=== PATIENT | female | born 1945 | race Caucasian/White ===

== ENCOUNTER 2017-11-02 02:44 | Outpatient (CLI) | payer MEDICARE, BC, SELFPAY ==
--- NOTE | 2017-11-02 14:37 | DI.REPORT_ITS ---
SYMPTOMS/DIAGNOSIS: COUGH, R07.9 CHEST X-RAY, PA AND LATERAL: Comparison is 03/23/17. The heart is normal in size. The lungs are clear. The mediastinal structures and pleura appear intact. IMPRESSION: Normal chest.
== END 2017-11-02 02:45 ==
PROVIDERS: PCP Family Medicine
DX: R07.9 Chest pain, unspecified (principal); R05 Cough
CPT/HCPCS: 71046

== ENCOUNTER 2017-11-12 08:16 | Day surgery (SDC) | payer MEDICARE, BC, SELFPAY ==
--- NOTE | 2017-11-11 13:47 | POEE_ITS ---
History of Present Illness Chief Complaint: Progressive decreased vision, left eye Narrative: NOTE: The Chief Complaint, HPI, Past Medical History, Past Surgical History, Family History, Social History, Medications, and complete Ophthalmic Exam with detailed Assessment and Plan have already been documented in the patient's outpatient ophthalmic record and/or in the Primary Care Provider's pre-op history and physical, and are not covered again in detail here. PFSH Family History Mother No problems noted. Father Cancer of heart Essential hypertension Heart disease Hyperlipidemia Neoplasm Sister Depression Hyperlipidemia Grandfather Heart disease Myocardial infarction Grandfather Heart disease Myocardial infarction Grandmother No problems noted. Grandmother Diabetes Essential hypertension Heart disease Hyperlipidemia Daughter Maria Luz-Danlos disease GRANDDAUGHTER (SON'S CHILD) Depression Son No problems noted. Daughter Substance abuse Depression Mental disorder GRANDDAUGHTER (DAUGHTERS CHILD Maria Luz-Danlos disease Social History Smoking/Tobacco Use Status: Never Surgical History BLADDER REPAIR Cervical Procedure Ligation of fallopian tube Tonsillectomy and adenoidectomy Meds Home Medications Medication Instructions Recorded Confirmed Type ibuprofen [Motrin Ib] 200 mg PO PRN 08/01/12 10/22/17 History olopatadine [Patanol 0.1%] 1 drp OPHTHALMIC BID PRN drp 08/01/12 10/22/17 History acetaminophen [Tylenol Extra 1,000 mg PO PRN PRN 07/21/14 10/22/17 History Strength] hydrocortisone 1 gm TOPICAL BID #1 tube 06/16/15 10/18/17 Clinic Magnesium Taurate 125 mg PO BID 06/29/16 10/22/17 History cyanocobalamin (vitamin B-12) 2,500 mcg PO BID tab.chew 06/29/16 10/22/17 History omega 9-hfq-aab-fish oil [Fish Oil 1,000 mg PO BID 06/29/16 10/22/17 History 1,000 Mg Softgel] vit B,F-WA-qqtk-copper oxide-E 1 ea PO DAILY 06/29/16 10/22/17 History [Stress B-Complex Tablet] Cardio Vh 180 mg PO DAILY 07/17/17 10/22/17 History coenzyme Q10 [Coq-10] 100 mg PO DAILY 07/17/17 10/22/17 History nystatin 4 gm TOPICAL BID #60 gm 07/17/17 10/22/17 Clinic sertraline 100 mg PO DAILY #90 tab-cap 09/17/17 10/22/17 Clinic inositol niacinate (bulk) 1,000 gm MISCELLANEOUS DAILY 10/22/17 10/22/17 History [Inositol Hexanicotinate] albuterol sulfate 2.5 mg INHALATION Q4H PRN #1 box 11/01/17 Clinic doxycycline hyclate 100 mg PO BID #20 tab-cap 11/01/17 Clinic Allergies Allergy/AdvReac Type Severity Reaction Status Date / Time Sulfa (Sulfonamide Allergy Intermediate HIVES Unverified 11/01/17 09:34 Antibiotics) aluminum Allergy Mild Unverified 11/01/17 09:34 ZINC GLUCONATE Allergy Mild ITCHING Uncoded 10/22/17 07:07 Exam OCULAR EXAM:: Visual acuity at distance: [] Pupils: [] IOP: [] Extraocular Motility: [] Pertinent Slit Lamp Findings: [] Dilated Funduscopic Examination: [] BRIGHTNESS ACUITY TESTING (BAT):: Off [] Low:[] Medium:[] High:[] Note: NOTE:: The details of the planned surgery, including the risks, indications, limitations,expectations,outcome and possible complications were explained to the patient. The patient understands the complications including, but not limited to: infection, hemorrhage, posterior dislocation of the lens or nuclear fragments which may require the intervention of a vitreoretinal surgeon, possible loss of the eye, or from anesthetic complications. The patient has been made aware of the option of not having surgery, that vision following surgery may not be equal to that prior to surgery, and that the planned surgery may not achieve the intended results. Following this discussion, which the patient appeared to understand, the patient wishes to proceed with cataract surgery with lens implantation of the affected eye to improve and maximize vision.
--- NOTE | 2017-11-11 14:13 | W.PIPPEYE ---
History of Present Illness Chief Complaint: Progressive decreased vision, left eye Narrative: The patient is a 71-year-old lady with history of narrow anterior chamber angles who has previously undergone laser iridotomy in 2017. She developed significant bilateral nuclear cataracts with complaints of diminished visual acuity in both eyes at both distance and near. She was significantly symptomatic that she underwent cataract surgery in the right eye on 10/22/2017. Postoperatively she has regained best corrected vision of 20/25 in the right eye. She now presents for cataract surgery in the left eye. NOTE: The Chief Complaint, HPI, Past Medical History, Past Surgical History, Family History, Social History, Medications, and complete Ophthalmic Exam with detailed Assessment and Plan have already been documented in the patient's outpatient ophthalmic record and/or in the Primary Care Provider's pre-op history and physical, and are not covered again in detail here. PFSH Family History Mother No problems noted. Father Cancer of heart Essential hypertension Heart disease Hyperlipidemia Neoplasm Sister Depression Hyperlipidemia Grandfather Heart disease Myocardial infarction Grandfather Heart disease Myocardial infarction Grandmother No problems noted. Grandmother Diabetes Essential hypertension Heart disease Hyperlipidemia Daughter Maria Luz-Danlos disease GRANDDAUGHTER (SON'S CHILD) Depression Son No problems noted. Daughter Substance abuse Depression Mental disorder GRANDDAUGHTER (DAUGHTERS CHILD Maria Luz-Danlos disease Social History Smoking/Tobacco Use Status: Never Surgical History S/P cataract surgery (Acute 10/29/17) BLADDER REPAIR Cervical Procedure Ligation of fallopian tube Tonsillectomy and adenoidectomy Meds Home Medications Medication Instructions Recorded Confirmed Type ibuprofen [Motrin Ib] 200 mg PO PRN 08/01/12 10/22/17 History olopatadine [Patanol 0.1%] 1 drp OPHTHALMIC BID PRN drp 08/01/12 10/22/17 History acetaminophen [Tylenol Extra 1,000 mg PO PRN PRN 07/21/14 10/22/17 History Strength] hydrocortisone 1 gm TOPICAL BID #1 tube 06/16/15 10/18/17 Clinic Magnesium Taurate 125 mg PO BID 06/29/16 10/22/17 History cyanocobalamin (vitamin B-12) 2,500 mcg PO BID tab.chew 06/29/16 10/22/17 History omega 9-gkg-bll-fish oil [Fish Oil 1,000 mg PO BID 06/29/16 10/22/17 History 1,000 Mg Softgel] vit B,D-PD-wsyb-copper oxide-E 1 ea PO DAILY 06/29/16 10/22/17 History [Stress B-Complex Tablet] Cardio Vh 180 mg PO DAILY 07/17/17 10/22/17 History coenzyme Q10 [Coq-10] 100 mg PO DAILY 07/17/17 10/22/17 History nystatin 4 gm TOPICAL BID #60 gm 07/17/17 10/22/17 Clinic sertraline 100 mg PO DAILY #90 tab-cap 09/17/17 10/22/17 Clinic inositol niacinate (bulk) 1,000 gm MISCELLANEOUS DAILY 10/22/17 10/22/17 History [Inositol Hexanicotinate] albuterol sulfate 2.5 mg INHALATION Q4H PRN #1 box 11/01/17 Clinic doxycycline hyclate 100 mg PO BID #20 tab-cap 11/01/17 Clinic Allergies Allergy/AdvReac Type Severity Reaction Status Date / Time Sulfa (Sulfonamide Allergy Intermediate HIVES Unverified 11/01/17 09:34 Antibiotics) aluminum Allergy Mild Unverified 11/01/17 09:34 ZINC GLUCONATE Allergy Mild ITCHING Uncoded 10/22/17 07:07 Exam OCULAR EXAM:: Visual acuity at distance: Right eye corrected visual acuity is 20/25. Best corrected vision in the left eye is 20/30. Pupils: Pupils equal, round, and reactive without afferent pupillary defect IOP: 18 OD 16 OS Extraocular Motility: Normal Pertinent Slit Lamp Findings: Significant for a patent peripheral iridotomy OU. Well-positioned PCIOL OD with clear posterior capsule. The left eye shows an intermediate depth anterior chamber with narrow angles. A 2+ brunescent nuclear cataract is present. Pupils dilate to 7 mm. Dilated Funduscopic Examination: Disc cupping is 0.2 OU. The optic nerves have good perfusion and normal color. The retinal vasculature is normal without significant tortuosity or abnormality. The maculas are normal in appearance with normal contour and foveal reflex appropriate for age. The peripheral retina and vitreous are normal. BRIGHTNESS ACUITY TESTING (BAT):: Off left eye 20/30 Low: 20/40 Medium: 20/50 High: 20/60 Assessment and Plan (1) Nuclear sclerotic cataract of left eye: Current visit: No Status: Chronic Assessment: Visually significant cataract, left eye. 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 The patient understands the complications including, but not limited to: infection, hemorrhage, posterior dislocation of the lens or nuclear fragments which may require the intervention of a vitreoretinal surgeon, possible loss of the eye, or from anesthetic complications. The patient has been made aware of the option of not having surgery, that vision following surgery may not be equal to that prior to surgery, and that the planned surgery may not achieve the intended results. Following this discussion, which the patient appeared to understand, the patient wishes to proceed with cataract surgery with lens implantation of the affected eye to improve and maximize vision.
--- NOTE | 2017-11-11 14:20 | POEE_ITS ---
History of Present Illness Chief Complaint: Progressive decreased vision, left eye Narrative: The patient is a 71-year-old lady with history of narrow anterior chamber angles who has previously undergone laser iridotomy in 2017. She developed significant bilateral nuclear cataracts with complaints of diminished visual acuity in both eyes at both distance and near. She was significantly symptomatic that she underwent cataract surgery in the right eye on 10/22/2017. Postoperatively she has regained best corrected vision of 20/25 in the right eye. She now presents for cataract surgery in the left eye. NOTE: The Chief Complaint, HPI, Past Medical History, Past Surgical History, Family History, Social History, Medications, and complete Ophthalmic Exam with detailed Assessment and Plan have already been documented in the patient's outpatient ophthalmic record and/or in the Primary Care Provider's pre-op history and physical, and are not covered again in detail here. PFSH Family History Mother No problems noted. Father Cancer of heart Essential hypertension Heart disease Hyperlipidemia Neoplasm Sister Depression Hyperlipidemia Grandfather Heart disease Myocardial infarction Grandfather Heart disease Myocardial infarction Grandmother No problems noted. Grandmother Diabetes Essential hypertension Heart disease Hyperlipidemia Daughter Maria Luz-Danlos disease GRANDDAUGHTER (SON'S CHILD) Depression Son No problems noted. Daughter Substance abuse Depression Mental disorder GRANDDAUGHTER (DAUGHTERS CHILD Maria Luz-Danlos disease Social History Smoking/Tobacco Use Status: Never Surgical History S/P cataract surgery (Acute 10/29/17) BLADDER REPAIR Cervical Procedure Ligation of fallopian tube Tonsillectomy and adenoidectomy Meds Home Medications Medication Instructions Recorded Confirmed Type ibuprofen [Motrin Ib] 200 mg PO PRN 08/01/12 10/22/17 History olopatadine [Patanol 0.1%] 1 drp OPHTHALMIC BID PRN drp 08/01/12 10/22/17 History acetaminophen [Tylenol Extra 1,000 mg PO PRN PRN 07/21/14 10/22/17 History Strength] hydrocortisone 1 gm TOPICAL BID #1 tube 06/16/15 10/18/17 Clinic Magnesium Taurate 125 mg PO BID 06/29/16 10/22/17 History cyanocobalamin (vitamin B-12) 2,500 mcg PO BID tab.chew 06/29/16 10/22/17 History omega 1-jsn-wtu-fish oil [Fish Oil 1,000 mg PO BID 06/29/16 10/22/17 History 1,000 Mg Softgel] vit B,W-OU-bhzx-copper oxide-E 1 ea PO DAILY 06/29/16 10/22/17 History [Stress B-Complex Tablet] Cardio Vh 180 mg PO DAILY 07/17/17 10/22/17 History coenzyme Q10 [Coq-10] 100 mg PO DAILY 07/17/17 10/22/17 History nystatin 4 gm TOPICAL BID #60 gm 07/17/17 10/22/17 Clinic sertraline 100 mg PO DAILY #90 tab-cap 09/17/17 10/22/17 Clinic inositol niacinate (bulk) 1,000 gm MISCELLANEOUS DAILY 10/22/17 10/22/17 History [Inositol Hexanicotinate] albuterol sulfate 2.5 mg INHALATION Q4H PRN #1 box 11/01/17 Clinic doxycycline hyclate 100 mg PO BID #20 tab-cap 11/01/17 Clinic Allergies Allergy/AdvReac Type Severity Reaction Status Date / Time Sulfa (Sulfonamide Allergy Intermediate HIVES Unverified 11/01/17 09:34 Antibiotics) aluminum Allergy Mild Unverified 11/01/17 09:34 ZINC GLUCONATE Allergy Mild ITCHING Uncoded 10/22/17 07:07 Exam OCULAR EXAM:: Visual acuity at distance: Right eye corrected visual acuity is 20 /25. Best corrected vision in the left eye is 20/30. Pupils: Pupils equal, round, and reactive without afferent pupillary defect IOP: 18 OD 16 OS Extraocular Motility: Normal Pertinent Slit Lamp Findings: Significant for a patent peripheral iridotomy OU. Well-positioned PCIOL OD with clear posterior capsule. The left eye shows an intermediate depth anterior chamber with narrow angles. A 2+ brunescent nuclear cataract is present. Pupils dilate to 7 mm. Dilated Funduscopic Examination: Disc cupping is 0.2 OU. The optic nerves have good perfusion and normal color. The retinal vasculature is normal without significant tortuosity or abnormality. The maculas are normal in appearance with normal contour and foveal reflex appropriate for age. The peripheral retina and vitreous are normal. BRIGHTNESS ACUITY TESTING (BAT):: Off left eye 20/30 Low: 20/40 Medium: 20/50 High: 20/60 Assessment and Plan (1) Nuclear sclerotic cataract of left eye: Current visit: No Status: Chronic Assessment: Visually significant cataract, left eye. Plan: Cataract extraction with intraocular lens implantation, left eye (2) Anatomical narrow angle, left eye: Current visit: No Status: Chronic Status post laser peripheral iridotomy Note: NOTE:: The details of the planned surgery, including the risks, indications, limitations,expectations,outcome and possible complications were explained to the patient. The patient understands the complications including, but not limited to: infection, hemorrhage, posterior dislocation of the lens or nuclear fragments which may require the intervention of a vitreoretinal surgeon, possible loss of the eye, or from anesthetic complications. The patient has been made aware of the option of not having surgery, that vision following surgery may not be equal to that prior to surgery, and that the planned surgery may not achieve the intended results. Following this discussion, which the patient appeared to understand, the patient wishes to proceed with cataract surgery with lens implantation of the affected eye to improve and maximize vision.
[2017-11-12 08:53] VITALS: BP 144/64; PULSE 56; RESP 16; TEMP 36.7; O2SAT 98
[2017-11-12] MEDS: Balanced Salt Soln.-PLUS 500 ML BAG (10:38)
[2017-11-12] MEDS: Lidocaine 1% Pres-Free 5 ML VIAL (10:41)
[2017-11-12] MEDS: Lidocaine 2% Jelly 6 ML SYR (10:42)
[2017-11-12] MEDS: Duovisc Viscoelastic System EACH 1 EACH (10:43)
[2017-11-12] MEDS: Povidone-Iodine Ophth 30 ML BTL (10:57)
--- NOTE | 2017-11-12 11:08 | W.PM.DSUDISC ---
Discharge Plan Discharge Details Attending Provider: Ronak Lara Primary Care Provider: Genaro Leon Home Meds and New Rx's Prescriptions: No Action olopatadine [Patanol] 5 ML drops 1 drp Ophthalmic BID PRNRF: 0 ibuprofen [Motrin IB] 200 MG tablet 200 mg PO PRN RF: 0 hydrocortisone 30 GM cream 1 gm Topical BID Qty: 1 RF: 0 omega 8-lov-uew-fish oil [Fish Oil] 1,000 MG capsule 1,000 mg PO BID RF: 0 vit B,H-LH-iyoh-copper oxide-E [Stress B-Complex] 1 EACH tablet 1 ea PO DAILY RF: 0 cyanocobalamin (vitamin B-12) 2,500 MCG tablet,chewable 2,500 mcg PO BID RF: 0 magnesium taurate 125 mg PO BID RF: 0 coenzyme Q10 [CoQ-10] 100 MG capsule 100 mg PO DAILY RF: 0 Cardio VH 180 mg PO DAILY RF: 0 nystatin 60 GM powder 4 gm Topical BID Qty: 60 RF: 11 sertraline 100 MG tablet 100 mg PO DAILY Qty: 90 RF: 3 doxycycline hyclate 100 MG tablet 100 mg PO BID Qty: 20 RF: 0 albuterol sulfate 2.5 MG/3 ML solution for nebulization 2.5 mg Inhalation Q4H PRN Qty: 1 RF: 0 acetaminophen [Tylenol Extra Strength] 500 MG tablet 1,000 mg PO PRN PRNRF: 0 inositol niacinate (bulk) [Inositol Hexanicotinate] 1,000 GM powder 1,000 gm Miscellaneous DAILY RF: 0 Discharge Instructions Stand Alone Forms: Post-op Topical Cataract, [place] (DSU) DS: Diagnosis Discharge Diagnosis (1) Nuclear sclerotic cataract of left eye: Status: Resolved (2) Anatomical narrow angle, left eye: Status: Resolved
--- NOTE | 2017-11-12 11:09 | W.PM.OP ---
Date of service: 11/12/17 Time of Service: 11:10 Operative Note Date of procedure: 11/12/17 Pre-op diagnosis: Cataract, left eye Post-op diagnosis: same Procedure: Cataract extraction using phacoemulsification with intraocular lens implant, left eye Surgeon: Ronak Lara Anesthesia: MAC and local (sub-tenon's anesthetic infiltration) Pathology: none sent Complications: None Patient was transported to: same day Patient's condition: stable Implants: Miguel and Miguel / [employer] Tecnis [id number] Indications: Painless progressive vision loss due to cataract, left eye Procedure Description: CATARACT SURGERY OPERATIVE REPORT PREOPERATIVE DIAGNOSIS: 1. Nuclear cataract, left eye, symptomatic 2. Status post peripheral iridotomy for narrow anterior chamber angles, both eyes 3. Status post cataract extraction with lens implantation, right eye POSTOPERATIVE DIAGNOSIS: Same OPERATION: Cataract extraction using phacoemulsification with posterior chamber intraocular lens implant, left eye. IOL: IOL Ekg Tech/Model: Miguel & Miguel / YULIYA Tecnis [id number] IOL Power: +27.0 diopters IOL Serial Number: [id number] Optic Diameter: 6.0 mm Haptic/Overall Diameter: 13.0 mm PHACO INFO: Gus [employer]ion Vision System with OZil and Active [employer]uidics Cumulative Dispersed Energy (CDE): 6.73 seconds SURGEON: Ronak Lara MD, [facility] ANESTHESIA: Monitored Anesthesia Care (MAC), with local sub-tenon's anesthetic infiltration COMPLICATIONS: None SPECIMENS: None INDICATIONS FOR PROCEDURE: Patient is a 71-year-old lady with history of shallow anterior chambers and narrow anterior chamber angles was undergone previous laser peripheral iridotomy. She is oriented on cataract surgery in her right eye to remove a visually significant cataract. She now presents for cataract surgery in the left eye. PROCEDURE: The correct surgical eye was identified and marked as the left eye and the pupil was dilated in the preoperative area using mydriatics, cycloplegics, and NSAIDS (except in aspirin allergic patients). The dilated pupil size was 7.0 mm. Oral sedation was administered in the form of an Imprimis MKO Melt (midazolam 3mg/ketamine 25mg/ondansetron 2mg). The patient was brought to the operating room where cardiopulmonary monitoring was instituted and surgical time-out was performed, confirming the correct operative eye and IOL power. Topical anesthesia was administered and ophthalmic povidone-iodine 5% was instilled into the conjunctival fornices. Lidocaine gel was applied to the cornea and the shreyas-ocular area was prepped with Betadine 10% solution and draped in the usual sterile fashion for intraocular surgery. Steri-strips were used to cover the lashes and lid margins and an adhesive eye drape was placed. Care was taken to isolate the lashes and lid margins under the Steri-strips and adhesive eye drape. A lid speculum was placed between the lids of the operative eye and the Latoya-Junior operating microscope was maneuvered into position. Rick scissors were then used to make a conjunctival buttonhole approximately 6mm posterior to the limbus in the inferonasal quadrant. Blunt dissection was carried out to expose bare sclera, and a blunt-tipped sub-tenon?s anesthesia cannula was introduced and passed posteriorly along the globe where non-preserved plain lidocaine was injected into posterior sub-Tenon?s space. A sideport knife was used to make a paracentesis port at the 12:00 postion and the anterior chamber was filled with Viscoat to protect the corneal endothelium. A 2.4mm keratome knife was used to create a half-thickness groove at the limbus and then to construct a three-plane near-clear corneal tunnel extending 2.0mm into clear cornea at the 3:00 position. A flap was raised on the anterior capsule and capsulorhexis forceps were used to complete a continuous curvilinear capsulorhexis of 5.0. Balanced salt solution was then used to perform cortical cleaving hydrodissection and nuclear hydrodelineation until the lens could be freely rotated within the capsular bag. The lens nucleus was then disassembled and removed within the capsular bag and iris plane using phacoemulsification. Residual cortical material was removed using the 45-degree angled silicone I/A tip with 0.3mm port. The posterior capsule was carefully polished to remove as much residual lens epithelial cells as safely possible. The capsular bag was then inflated and the anterior chamber deepened with Provisc viscoelastic. The lens implant described above was inserted into the capsular bag using the YULIYA [place] Injector. A Kuglen hook was used to dial the IOL into position. Residual viscoelastic was then removed first from posterior to the IOL, then from the anterior chamber using the I/A handpiece. The lens implant was noted to center nicely within the capsular bag. The incisions were stromally hydrated, and the anterior chamber was reformed using BSS. Then 0.4cc of moxifloxacin 1.5mg/ml were injected into the capsular bag and anterior chamber. The incisions were checked with a Weck spear and found to be secure. Several drops of ophthalmic povidone-iodine 5% were then applied to the eye followed by two drops of Imprimis combination moxifloxacin/dexamethasone solution. The drapes were removed and a clear plastic protective eye shield was placed over the eye. The patient was then returned to [facility] Day Surgery in stable condition.
--- NOTE | 2017-11-12 11:12 | ROE_ITS ---
Date of service: 11/12/17 Time of Service: 11:10 Operative Note Date of procedure: 11/12/17 Pre-op diagnosis: Cataract, left eye Post-op diagnosis: same Procedure: Cataract extraction using phacoemulsification with intraocular lens implant, left eye Surgeon: Ronak Lara Anesthesia: MAC and local (sub-tenon's anesthetic infiltration) Pathology: none sent Complications: None Patient was transported to: same day Patient's condition: stable Implants: Miguel and Miguel / [employer] Tecnis [id number] Indications: Painless progressive vision loss due to cataract, left eye Procedure Description: CATARACT SURGERY OPERATIVE REPORT PREOPERATIVE DIAGNOSIS: 1. Nuclear cataract, left eye, symptomatic 2. Status post peripheral iridotomy for narrow anterior chamber angles, both eyes 3. Status post cataract extraction with lens implantation, right eye POSTOPERATIVE DIAGNOSIS: Same OPERATION: Cataract extraction using phacoemulsification with posterior chamber intraocular lens implant, left eye. IOL: IOL Hand Former/Model: Miguel & Miguel / YULIYA Tecnis [id number] IOL Power: +27.0 diopters IOL Serial Number: [id number] Optic Diameter: 6.0 mm Haptic/Overall Diameter: 13.0 mm PHACO INFO: Gus Centurion Vision System with OZil and Active Fluidics Cumulative Dispersed Energy (CDE): 6.73 seconds SURGEON: Ronak Lara MD, TEMO ANESTHESIA: Monitored Anesthesia Care (MAC), with local sub-tenon's anesthetic infiltration COMPLICATIONS: None SPECIMENS: None INDICATIONS FOR PROCEDURE: Patient is a 71-year-old lady with history of shallow anterior chambers and narrow anterior chamber angles was undergone previous laser peripheral iridotomy. She is oriented on cataract surgery in her right eye to remove a visually significant cataract. She now presents for cataract surgery in the left eye. PROCEDURE: The correct surgical eye was identified and marked as the left eye and the pupil was dilated in the preoperative area using mydriatics, cycloplegics, and NSAIDS (except in aspirin allergic patients). The dilated pupil size was 7.0 mm. Oral sedation was administered in the form of an Imprimis MKO Melt (midazolam 3mg/ketamine 25mg/ondansetron 2mg). The patient was brought to the operating room where cardiopulmonary monitoring was instituted and surgical time-out was performed, confirming the correct operative eye and IOL power. Topical anesthesia was administered and ophthalmic povidone-iodine 5% was instilled into the conjunctival fornices. Lidocaine gel was applied to the cornea and the shreyas-ocular area was prepped with Betadine 10% solution and draped in the usual sterile fashion for intraocular surgery. Steri-strips were used to cover the lashes and lid margins and an adhesive eye drape was placed. Care was taken to isolate the lashes and lid margins under the Steri-strips and adhesive eye drape. A lid speculum was placed between the lids of the operative eye and the Latoya-Junior operating microscope was maneuvered into position. Rick scissors were then used to make a conjunctival buttonhole approximately 6mm posterior to the limbus in the inferonasal quadrant. Blunt dissection was carried out to expose bare sclera, and a blunt-tipped sub-tenon? s anesthesia cannula was introduced and passed posteriorly along the globe where non-preserved plain lidocaine was injected into posterior sub-Tenon?s space. A sideport knife was used to make a paracentesis port at the 12:00 postion and the anterior chamber was filled with Viscoat to protect the corneal endothelium. A 2.4mm keratome knife was used to create a half-thickness groove at the limbus and then to construct a three-plane near-clear corneal tunnel extending 2.0mm into clear cornea at the 3:00 position. A flap was raised on the anterior capsule and capsulorhexis forceps were used to complete a continuous curvilinear capsulorhexis of 5.0. Balanced salt solution was then used to perform cortical cleaving hydrodissection and nuclear hydrodelineation until the lens could be freely rotated within the capsular bag. The lens nucleus was then disassembled and removed within the capsular bag and iris plane using phacoemulsification. Residual cortical material was removed using the 45-degree angled silicone I/A tip with 0.3mm port. The posterior capsule was carefully polished to remove as much residual lens epithelial cells as safely possible. The capsular bag was then inflated and the anterior chamber deepened with Provisc viscoelastic. The lens implant described above was inserted into the capsular bag using the YULIYA Waller Injector. A Kuglen hook was used to dial the IOL into position. Residual viscoelastic was then removed first from posterior to the IOL, then from the anterior chamber using the I/A handpiece. The lens implant was noted to center nicely within the capsular bag. The incisions were stromally hydrated , and the anterior chamber was reformed using BSS. Then 0.4cc of moxifloxacin 1.5mg/ml were injected into the capsular bag and anterior chamber. The incisions were checked with a Weck spear and found to be secure. Several drops of ophthalmic povidone-iodine 5% were then applied to the eye followed by two drops of Imprimis combination moxifloxacin/dexamethasone solution. The drapes were removed and a clear plastic protective eye shield was placed over the eye. The patient was then returned to [facility] in stable condition.
[2017-11-12 11:22] VITALS: BP 130/69; PULSE 51; RESP 16; TEMP 36.8; O2SAT 97
== END 2017-11-12 11:38 | disposition home or self-care (01) ==
LOC: SUR 08:16
PROVIDERS: PCP Family Medicine; Visit Provider Ophthalmology
PROC: (CPT 66984; principal; 2017-11-12 11:30)
DX: H25.12 Age-related nuclear cataract, left eye (principal); Z98.890 Other specified postprocedural states; Z96.1 Presence of intraocular lens; Z98.41 Cataract extraction status, right eye
CPT/HCPCS: 66984; V2632

== ENCOUNTER 2018-01-07 08:52 | Outpatient (CLI) | payer MEDICARE, BC, SELFPAY ==
[2018-01-07 10:22] LABS: Iron 146 ug/dL (50-175)
[2018-01-07 10:34] LABS: ALT 24 U/L (12-78); AST 23 U/L (15-37); Albumin 3.7 g/dL (3.4-5.0); Alkaline Phosphatase 95 U/L (46-116); Anion Gap 7.8 mmol/L (3-11); BUN 21 mg/dL (7-18); Bilirubin, Total 0.7 mg/dL (0.2-1.0); CO2 28.2 mmol/L (21.0-32.0); Calcium 9.1 mg/dL (8.5-10.1); Chloride 106 mmol/L (98-107); Cholesterol 222 mg/dL (50-200); Ferritin 60 ng/mL (8-388); Glucose 94 mg/dL (70-100); HDL Cholesterol 45 mg/dL (40-60); LDL CHOLESTEROL 157 mg/dL (<100); Potassium 4.4 mmol/L (3.5-5.1); Sodium 142 mmol/L (136-145); Total Protein 6.7 g/dL (6.4-8.2); Triglyceride 148 mg/dL (30-150)
== END 2018-01-07 09:12 ==
PROVIDERS: PCP Family Medicine
DX: I10 Essential (primary) hypertension (principal); D64.9 Anemia, unspecified; R63.8 Other symptoms and signs concerning food and fluid intake; K21.9 Gastro-esophageal reflux disease without esophagitis; F32.9 Major depressive disorder, single episode, unspecified; E83.119 Hemochromatosis, unspecified
CPT/HCPCS: 36415; 80053; 80061; 83721; 82728; 83540

== ENCOUNTER 2018-05-31 07:00 | Emergency (ER) | payer MEDICARE, BC, SELFPAY ==
[2018-05-31 07:23] VITALS: BP 163/84; PULSE 64; RESP 16; TEMP 36.3; O2SAT 97
--- NOTE | 2018-05-31 09:41 | W.ED.GENAD ---
Discharge Plan Disposition Patient Disposition: HOME Condition: Stable Discharge Details Chief Complaint: RespSymp Clinical Impression: Chronic cough, Sore throat, Viral syndrome Primary Care Provider: Angy Jacob ED Provider: Renetta Yan Home Meds and New Rx's Prescriptions: Continued Osteoblend See Patient Comments .ROUTE .COMPLEX RF: 0 vitamin B complex [Super B-50 Complex] capsule 1 cap PO DAILY RF: 0 cholecalciferol (vitamin D3) 2,000 unit capsule 2,000 unit PO DAILY Qty: 90 RF: 4 olopatadine [Patanol] 5 ML drops 1 drp Ophthalmic BID PRNRF: 0 ibuprofen [Motrin IB] 200 MG tablet 200 mg PO PRN RF: 0 Stress B-Complex 1 EACH tablet 1 ea PO DAILY RF: 0 coenzyme Q10 [CoQ-10] 100 MG capsule 100 mg PO DAILY RF: 0 nystatin 60 GM powder 4 gm Topical BID Qty: 60 RF: 11 sertraline 100 MG tablet 100 mg PO DAILY Qty: 90 RF: 3 albuterol sulfate 2.5 MG/3 ML solution for nebulization 2.5 mg Inhalation Q4H PRN Qty: 1 RF: 0 acetaminophen [Tylenol Extra Strength] 500 MG tablet 1,000 mg PO PRN PRNRF: 0 Discharge Instructions Instructions: Pharyngitis (ED), Viral Syndrome (ED), Acute Cough (ED) Additional Instructions: Alternate Tylenol and Motrin as needed and directed for pain. Take [id number] cough and cold medication such as phenylephrine for your nasal congestion and dextromethorphan for your cough. Follow-up with your primary care doctor in 3 days for reevaluation. Return immediately to the emergency department any worsening or new concerning symptoms. Discharge Data Discharge Physician: Renetta Yan Medical Decision Making 72-year-old female with history of GERD, hypertension depression who presents with sore throat, right ear pain, fatigue and productive cough for the past 3 weeks. She denies fever, shortness of breath or chest pain states she has been eating and drinking normally. Blood pressure mildly hypertensive, otherwise vitals within normal limits. Patient appears nontoxic and in no acute distress. She is speaking full sentences. She has minimal fluid noted behind right TM but otherwise normal ENT exam. No drooling, no trismus, no submandibular swelling, no peritonsillar abscess, uvula midline, no submandibular swelling. Lungs clear to auscultation. Patient states she mainly came here to determine if she had strep throat. Rapid strep negative. Discussed with patient that her symptoms could likely be viral in nature. She has a mild hoarse voice which likely has laryngitis from postnasal drip. As she is noted to have some fluid behind her right TM, and has had a sore throat and cough for the past 3 weeks, she was offered a prescription for antibiotics she is declining this at this time. She has normal heart rate, oxygen, lung sounds, and does not have an exam consistent with pneumonia so I do not see an indication for chest x-ray and she is agreeable. She states she will follow-up with her primary care doctor for this. She is instructed that she can use [id number] cough and cold medication such as phenylephrine to help with congestion and may possibly help with fluid in her ear as well as dextromethorphan to help with cough. She is instructed to drink plenty of fluids, get plenty of rest, alternate Tylenol Motrin for pain, follow-up with your primary care doctor return here at any time if worse. HPI General Mode of arrival: ambulatory. Date/Time Provider Initiated Documentation: 05/31/18 08:29. Limitations to Documentation: no limitations. Information obtained by: patient. HPI Narrative: Patient is a 72-year-old female with a history of GERD, hypertension and depression who presents with sore throat and right ear pain for the past 3 weeks. She admits to cough which is occasionally productive of thick white or yellow sputum. She also admits to fatigue. She denies any fever, shortness of breath, chest pain, vomiting or diarrhea. She states she has been eating and drinking normally. She has occasionally taken Tylenol for symptoms but otherwise no other medication. Related Data Home Medications Medication Instructions Recorded Confirmed ibuprofen [Motrin IB] 200 mg PO PRN 08/01/12 05/31/18 olopatadine [Patanol] 1 drp OPHTHALMIC BID PRN drp 08/01/12 05/31/18 acetaminophen [Tylenol Extra 1,000 mg PO PRN PRN 07/21/14 05/31/18 Strength] Stress B-Complex 1 ea PO DAILY 06/29/16 05/31/18 coenzyme Q10 [CoQ-10] 100 mg PO DAILY 07/17/17 05/31/18 nystatin 4 gm TOPICAL BID #60 gm 07/17/17 05/31/18 sertraline 100 mg PO DAILY #90 tab-cap 09/17/17 05/31/18 albuterol sulfate 2.5 mg INHALATION Q4H PRN #1 box 11/01/17 05/31/18 Osteoblend See Rx Instructions .ROUTE .COMPLEX 04/16/18 05/31/18 cholecalciferol (vitamin D3) 2,000 2,000 unit PO DAILY #90 cap 04/16/18 05/31/18 unit capsule vitamin B complex capsule 1 cap PO DAILY 04/16/18 05/31/18 Previous Rx's Medication Instructions Recorded nystatin 4 gm TOPICAL BID #60 gm 07/17/17 sertraline 100 mg PO DAILY #90 tab-cap 09/17/17 albuterol sulfate 2.5 mg INHALATION Q4H PRN #1 box 11/01/17 cholecalciferol (vitamin D3) 2,000 2,000 unit PO DAILY #90 cap 04/16/18 unit capsule Allergies Allergy/AdvReac Type Severity Reaction Status Date / Time Sulfa (Sulfonamide Allergy Intermediate HIVES Verified 05/31/18 07:25 Antibiotics) aluminum Allergy Mild Verified 05/31/18 07:25 ZINC GLUCONATE Allergy Mild ITCHING Uncoded 05/31/18 07:25 General Stated Complaint: RespSymp KAMI: 4 Review of Systems Review of Systems All systems reviewed & are unremarkable except as noted in HPI and below Constitutional Reports as per HPI, Denies chills and Denies fever(s) Eyes Denies blurry vision ENT Denies dizziness, Reports otalgia, Reports nasal congestion, Reports sore throat and Denies throat swelling Cardiovascular Denies chest pain and Denies dyspnea Respiratory Reports cough and Denies dyspnea Gastrointestinal Denies abdominal pain, Denies diarrhea and Denies vomiting Genitourinary Denies hematuria and Denies dysuria Musculoskeletal Denies back pain and Denies numbness Integumentary/Breasts Denies lesions and Denies rash Neurologic Denies dizziness, Denies focal weakness and Denies numbness Allergic/Immunologic Denies throat swelling FOR[facility]LY [facility] Medical History Skin lesion (Chronic) CAP (community acquired pneumonia) (Resolved) Osteopenia (Acute) Increased body mass index (Acute) Hepatic steatosis (Chronic 07/17/17) Hemochromatosis, unspecified (Acute 07/17/17) Gastroesophageal reflux disease without esophagitis (Chronic 10/13/15) Essential hypertension (Chronic 11/28/12) Depressive disorder (Acute) Anatomical narrow angle, left eye (Resolved) Nuclear sclerotic cataract of left eye (Resolved) Surgical History S/P cataract surgery (Acute 10/29/17) BLADDER REPAIR Cervical Procedure Ligation of fallopian tube Tonsillectomy and adenoidectomy Family History Mother No problems noted. Father Cancer of heart Essential hypertension Heart disease Hyperlipidemia Sister Depression Hyperlipidemia Maternal Grandfather Heart disease Myocardial infarction Paternal Grandfather Heart disease Myocardial infarction Maternal Grandmother No problems noted. Paternal Grandmother Diabetes Essential hypertension Heart disease Hyperlipidemia Daughter Maria Luz-Danlos disease Depression GRANDDAUGHTER (SON'S CHILD) Depression Son Depression Daughter Substance abuse Depression Mental disorder GRANDDAUGHTER (DAUGHTERS CHILD Maria Luz-Danlos disease Social History Smoking/Tobacco Use Status: Never Second Hand Exposure: No Alcohol Intake: current Alcohol Intake frequency: holidays/special occasions only Alcohol type: hard liquor Drug use: Never Substance use type: does not use Caregiver/Support person: Yes Household members: spouse and other Details: 3 granddaughters Housing: house Pets and animals: Yes Pets and animals: cat(s) and dog(s) Current gender identity: female What is your relationship status?: How often do you talk on the phone with friends or family?: three or more times per week How often do you get together with friends or relatives?: once per week How often do you attend scientology or taoist services?: 4 or more times per year Do you belong to any clubs or organized social groups?: decline to answer Panel score (0-1 are the most socially isolated patients): 3 What type of physical activity do you participate in: none Elly/Yazidi: Sabianist Special elly needs: No Do you feel safe in your relationship?: Yes Exam Const General: cooperative and healthy appearing Orientation: alert and awake HENMT Head: normal to inspection Ears: hearing grossly normal bilaterally, external ears normal, no periauricular adenopathy and TM abnormal with fluid behind the TM on the right; not bulging, not bullous, not dull, not with effusion and not erythematous General nose exam: external nose normal Face and sinus: normal facial exam Mouth: oral mucosae normal, no drooling and no trismus Teeth and gingiva: dentition normal Throat: posterior oropharynx normal, uvula midline, no peritonsillar masses and no uvular edema Eyes General: appearance normal, both eyes and all related structures Eyelids: eyelids normal Pupils: PERRL EOM: EOM intact bilaterally Neck Neck: normal visual inspection and No submandibular swelling Lymphatic: no lymphadenopathy noted Chest Chest: normal inspection of the chest Resp Effort & Inspection: normal respiratory effort and able to speak in complete sentences Auscultation: clear to auscultation bilaterally Cardio Rate: regular rate Rhythm: regular rhythm GI Inspection: normal to inspection Palpation: soft, not firm, no guarding, no hepatosplenomegaly, no masses and nontender Auscultation: normal bowel sounds Skin General skin exam: no rashes or lesions noted Neuro General: alert and awake Cognition: normal cognition Speech: speech normal Gait: normal gait Motor: muscle tone normal throughout Sensory Exam: no sensory deficits noted Extrem General: normal to inspection and full ROM Psych Appearance: grossly normal Mental Status: mental status grossly normal Speech and Movement: speech and movement normal Affect: normal affect Thought Process: normal Course Vital Signs Temperature 97.3 F L 05/31/18 07:23 Pulse 64 05/31/18 07:23 Respiratory Rate 16 05/31/18 07:23 Blood Pressure 163/84 H 05/31/18 07:23 Pulse Oximetry 97 05/31/18 07:23 Temperature 97.3 F L 05/31/18 07:23 Temperature Source Skin 05/31/18 07:23 Pulse 64 05/31/18 07:23 Respiratory Rate 16 05/31/18 07:23 Respiratory Effort Non-Labored 05/31/18 07:23 Blood Pressure 163/84 H 05/31/18 07:23 Blood Pressure Position Sitting 05/31/18 07:23 Pulse Oximetry 97 05/31/18 07:23 Oxygen Delivery Method Room Air 05/31/18 07:23 Oxygen Flow Rate 0 05/31/18 07:23 Pain Level 4 05/31/18 07:23 Lab/Test Results Lab/Test Results: 05/31/18 07:15 Pharynx Streptococcus Screen (KAYLIN) - Pending POC Strep Test-RUBEN(Rapid) Start: 05/31/18 07:45 Freq: .Rapid Strep Test Status: Active Protocol: Document 05/31/18 07:45 MMQ (Rec: 05/31/18 07:45 MMQ [id number]) Strep test-RUBEN(Rapid)-POC POC-Strep test-RUBEN (Rapid) Negative POC-Strep test-RUBEN (Rapid) Negative
--- NOTE | 2018-05-31 09:49 | ED.GENADUL_ITS ---
Discharge Plan Disposition Patient Disposition: HOME Condition: Stable Discharge Details Chief Complaint: RespSymp Clinical Impression: Chronic cough, Sore throat, Viral syndrome Primary Care Provider: Angy Jacob ED Provider: Renetta Yan Home Meds and New Rx's Prescriptions: Continued Osteoblend See Patient Comments .ROUTE .COMPLEX RF: 0 vitamin B complex [Super B-50 Complex] capsule 1 cap PO DAILY RF: 0 cholecalciferol (vitamin D3) 2,000 unit capsule 2,000 unit PO DAILY Qty: 90 RF: 4 olopatadine [Patanol] 5 ML drops 1 drp Ophthalmic BID PRNRF: 0 ibuprofen [Motrin IB] 200 MG tablet 200 mg PO PRN RF: 0 Stress B-Complex 1 EACH tablet 1 ea PO DAILY RF: 0 coenzyme Q10 [CoQ-10] 100 MG capsule 100 mg PO DAILY RF: 0 nystatin 60 GM powder 4 gm Topical BID Qty: 60 RF: 11 sertraline 100 MG tablet 100 mg PO DAILY Qty: 90 RF: 3 albuterol sulfate 2.5 MG/3 ML solution for nebulization 2.5 mg Inhalation Q4H PRN Qty: 1 RF: 0 acetaminophen [Tylenol Extra Strength] 500 MG tablet 1,000 mg PO PRN PRNRF: 0 Discharge Instructions Instructions: Pharyngitis (ED), Viral Syndrome (ED), Acute Cough (ED) Additional Instructions: Alternate Tylenol and Motrin as needed and directed for pain. Take [id number] cough and cold medication such as phenylephrine for your nasal congestion and dextromethorphan for your cough. Follow-up with your primary care doctor in 3 days for reevaluation. Return immediately to the emergency department any worsening or new concerning symptoms. Discharge Data Discharge Physician: Renetta Yan Medical Decision Making 72-year-old female with history of GERD, hypertension depression who presents with sore throat, right ear pain, fatigue and productive cough for the past 3 weeks. She denies fever, shortness of breath or chest pain states she has been eating and drinking normally. Blood pressure mildly hypertensive, otherwise vitals within normal limits. Patient appears nontoxic and in no acute distress. She is speaking full sentences. She has minimal fluid noted behind right TM but otherwise normal ENT exam. No drooling, no trismus, no submandibular swelling, no peritonsillar abscess, uvula midline, no submandibular swelling. Lungs clear to auscultation. Patient states she mainly came here to determine if she had strep throat. Rapid strep negative. Discussed with patient that her symptoms could likely be viral in nature. She has a mild hoarse voice which likely has laryngitis from postnasal drip. As she is noted to have some fluid behind her right TM, and has had a sore throat and cough for the past 3 weeks, she was offered a prescription for antibiotics she is declining this at this time. She has normal heart rate, oxygen, lung sounds, and does not have an exam consistent with pneumonia so I do not see an indication for chest x-ray and she is agreeable. She states she will follow-up with her primary care doctor for this. She is instructed that she can use [id number] cough and cold medication such as phenylephrine to help with congestion and may possibly help with fluid in her ear as well as dextromethorphan to help with cough. She is instructed to drink plenty of fluids, get plenty of rest, alternate Tylenol Motrin for pain, follow-up with your primary care doctor return here at any time if worse. HPI General Mode of arrival: ambulatory . Date/Time Provider Initiated Documentation: 05/31/18 08:29 . Limitations to Documentation: no limitations . Information obtained by: patient . HPI Narrative: Patient is a 72-year-old female with a history of GERD, hypertension and depression who presents with sore throat and right ear pain for the past 3 weeks. She admits to cough which is occasionally productive of thick white or yellow sputum. She also admits to fatigue. She denies any fever, shortness of breath, chest pain, vomiting or carlos rrhea. She states she has been eating and drinking normally. She has occasionally taken Tylenol for symptoms but otherwise no other medication. Related Data Home Medications Medication Instructions Recorded Confirmed ibuprofen [Motrin IB] 200 mg PO PRN 08/01/12 05/31/18 olopatadine [Patanol] 1 drp OPHTHALMIC BID PRN drp 08/01/12 05/31/18 acetaminophen [Tylenol Extra 1,000 mg PO PRN PRN 07/21/14 05/31/18 Strength] Stress B-Complex 1 ea PO DAILY 06/29/16 05/31/18 coenzyme Q10 [CoQ-10] 100 mg PO DAILY 07/17/17 05/31/18 nystatin 4 gm TOPICAL BID #60 gm 07/17/17 05/31/18 sertraline 100 mg PO DAILY #90 tab-cap 09/17/17 05/31/18 albuterol sulfate 2.5 mg INHALATION Q4H PRN #1 box 11/01/17 05/31/18 Osteoblend See Rx Instructions .ROUTE .COMPLEX 04/16/18 05/31/18 cholecalciferol (vitamin D3) 2,000 2,000 unit PO DAILY #90 cap 04/16/18 05/31/18 unit capsule vitamin B complex capsule 1 cap PO DAILY 04/16/18 05/31/18 Previous Rx's Medication Instructions Recorded nystatin 4 gm TOPICAL BID #60 gm 07/17/17 sertraline 100 mg PO DAILY #90 tab-cap 09/17/17 albuterol sulfate 2.5 mg INHALATION Q4H PRN #1 box 11/01/17 cholecalciferol (vitamin D3) 2,000 2,000 unit PO DAILY #90 cap 04/16/18 unit capsule Allergies Allergy/AdvReac Type Severity Reaction Status Date / Time Sulfa (Sulfonamide Allergy Intermediate HIVES Verified 05/31/18 07:25 Antibiotics) aluminum Allergy Mild Verified 05/31/18 07:25 ZINC GLUCONATE Allergy Mild ITCHING Uncoded 05/31/18 07:25 General Stated Complaint: RespSymp KAMI: 4 Review of Systems Review of Systems All systems reviewed & are unremarkable except as noted in HPI and below Constitutional Reports as per HPI, Denies chills and Denies fever(s) Eyes Denies blurry vision ENT Denies dizziness, Reports otalgia, Reports nasal congestion, Reports sore throat and Denies throat swelling Cardiovascular Denies chest pain and Denies dyspnea Respiratory Reports cough and Denies dyspnea Gastrointestinal Denies abdominal pain, Denies diarrhea and Denies vomiting Genitourinary Denies hematuria and Denies dysuria Musculoskeletal Denies back pain and Denies numbness Integumentary/Breasts Denies lesions and Denies rash Neurologic Denies dizziness, Denies focal weakness and Denies numbness Allergic/Immunologic Denies throat swelling [facility] Medical History Skin lesion (Chronic) CAP (community acquired pneumonia) (Resolved) Osteopenia (Acute) Increased body mass index (Acute) Hepatic steatosis (Chronic 07/17/17) Hemochromatosis, unspecified (Acute 07/17/17) Gastroesophageal reflux disease without esophagitis (Chronic 10/13/15) Essential hypertension (Chronic 11/28/12) Depressive disorder (Acute) Anatomical narrow angle, left eye (Resolved) Nuclear sclerotic cataract of left eye (Resolved) Surgical History S/P cataract surgery (Acute 10/29/17) BLADDER REPAIR Cervical Procedure Ligation of fallopian tube Tonsillectomy and adenoidectomy Family History Mother No problems noted. Father Cancer of heart Essential hypertension Heart disease Hyperlipidemia Sister Depression Hyperlipidemia Maternal Grandfather Heart disease Myocardial infarction Paternal Grandfather Heart disease Myocardial infarction Maternal Grandmother No problems noted. Paternal Grandmother Diabetes Essential hypertension Heart disease Hyperlipidemia Daughter Maria Luz-Danlos disease Depression GRANDDAUGHTER (SON'S CHILD) Depression Son Depression Daughter Substance abuse Depression Mental disorder GRANDDAUGHTER (DAUGHTERS CHILD Maria Luz-Danlos disease Social History Smoking/Tobacco Use Status: Never Second Hand Exposure: No Alcohol Intake: current Alcohol Intake frequency: holidays/special occasions only Alcohol type: hard liquor Drug use: Never Substance use type: does not use Caregiver/Support person: Yes Household members: spouse and other Details: 3 granddaughters Housing: house Pets and animals: Yes Pets and animals: cat(s) and dog(s) Current gender identity: female What is your relationship status?: How often do you talk on the phone with friends or family?: three or more times per week How often do you get together with friends or relatives?: once per week How often do you attend roman catholic or amish services?: 4 or more times per year Do you belong to any clubs or organized social groups?: decline to answer Panel score (0-1 are the most socially isolated patients): 3 What type of physical activity do you participate in: none Elly/Muslim: Scientologist Special elly needs: No Do you feel safe in your relationship?: Yes Exam Const General: cooperative and healthy appearing Orientation: alert and awake [facility] Head: normal to inspection Ears: hearing grossly normal bilaterally, external ears normal, no periauricular adenopathy and TM abnormal with fluid behind the TM on the right; not bulging, not bullous, not dull, not with effusion and not erythematous General nose exam: external nose normal Face and sinus: normal facial exam Mouth: oral mucosae normal, no drooling and no trismus Teeth and gingiva: dentition normal Throat: posterior oropharynx normal, uvula midline, no peritonsillar masses and no uvular edema Eyes General: appearance normal, both eyes and all related structures Eyelids: eyelids normal Pupils: PERRL EOM: EOM intact bilaterally Neck Neck: normal visual inspection and No submandibular swelling Lymphatic: no lymphadenopathy noted Chest Chest: normal inspection of the chest Resp Effort & Inspection: normal respiratory effort and able to speak in complete sentences Auscultation: clear to auscultation bilaterally Cardio Rate: regular rate Rhythm: regular rhythm GI Inspection: normal to inspection Palpation: soft, not firm, no guarding, no hepatosplenomegaly, no masses and nontender Auscultation: normal bowel sounds Skin General skin exam: no rashes or lesions noted Neuro General: alert and awake Cognition: normal cognition Speech: speech normal Gait: normal gait Motor: muscle tone normal throughout Sensory Exam: no sensory deficits noted Extrem General: normal to inspection and full ROM Psych Appearance: grossly normal Mental Status: mental status grossly normal Speech and Movement: speech and movement normal Affect: normal affect Thought Process: normal Course Vital Signs Temperature 97.3 F L 05/31/18 07:23 Pulse 64 05/31/18 07:23 Respiratory Rate 16 05/31/18 07:23 Blood Pressure 163/84 H 05/31/18 07:23 Pulse Oximetry 97 05/31/18 07:23 Temperature 97.3 F L 05/31/18 07:23 Temperature Source Skin 05/31/18 07:23 Pulse 64 05/31/18 07:23 Respiratory Rate 16 05/31/18 07:23 Respiratory Effort Non-Labored 05/31/18 07:23 Blood Pressure 163/84 H 05/31/18 07:23 Blood Pressure Position Sitting 05/31/18 07:23 Pulse Oximetry 97 05/31/18 07:23 Oxygen Delivery Method Room Air 05/31/18 07:23 Oxygen Flow Rate 0 05/31/18 07:23 Pain Level 4 05/31/18 07:23 Lab/Test Results Lab/Test Results: 05/31/18 07:15 Pharynx Streptococcus Screen ([facility]) - Pending POC Strep Test-RUBEN(Rapid) Start: 05/31/18 07:45 Freq: .Rapid Strep Test Status: Active Protocol: Document 05/31/18 07:45 MMQ (Rec: 05/31/18 07:45 MMQ [id number]) Strep test-RUBEN(Rapid)-POC POC-Strep test-RUBEN (Rapid) Negative POC-Strep test-RUBEN (Rapid) Negative
== END 2018-05-31 10:00 | disposition home or self-care (01) ==
PROVIDERS: Emergency Provider Physician Assistant; PCP Nurse Practitioner Family
DX: B34.9 Viral infection, unspecified (principal); R05 Cough; J02.9 Acute pharyngitis, unspecified; I10 Essential (primary) hypertension
CPT/HCPCS: 87880; 99282; 87081

== ENCOUNTER 2018-12-06 06:18 | Emergency (ER) | payer MEDICARE, BC, SELFPAY ==
[2018-12-06 06:20] VITALS: BP 195/72; PULSE 71; RESP 18; TEMP 36.7; O2SAT 98
--- NOTE | 2018-12-06 06:36 | ED.GENADUL_ITS ---
Discharge Plan Disposition Patient Disposition: HOME Condition: Good Discharge Details Chief Complaint: Urinary Clinical Impression: UTI (urinary tract infection), uncomplicated Primary Care Provider: Angy Jacob ED Provider: Andry Wagner [place] Meds and New Rx's Prescriptions: New phenazopyridine 100 mg tablet 100 mg PO TID Qty: 6 RF: 0 nitrofurantoin macrocrystal 100 mg capsule 100 mg PO BID Qty: 9 RF: 0 Continued Osteoblend See Rx Instructions .ROUTE .COMPLEX RF: 0 cholecalciferol (vitamin D3) 2,000 unit capsule 2,000 unit PO DAILY Qty: 90 RF: 4 magnesium 250 mg tablet 500 mg PO DAILY RF: 0 cholecalciferol (vitamin D3) 2,000 unit capsule 2,000 unit PO DAILY RF: 0 olopatadine [Patanol] 5 ML drops 1 drp Ophthalmic BID PRNRF: 0 ibuprofen [Motrin IB] 200 MG tablet 200 mg PO PRN RF: 0 coenzyme Q10 [CoQ-10] 100 MG capsule 100 mg PO DAILY RF: 0 nystatin 60 GM powder 4 gm Topical BID Qty: 60 RF: 11 albuterol sulfate 2.5 MG/3 ML solution for nebulization 2.5 mg Inhalation Q4H PRN Qty: 1 RF: 0 sertraline 100 mg tablet 100 mg PO DAILY Qty: 90 RF: 4 acetaminophen [Tylenol Extra Strength] 500 MG tablet 1,000 mg PO PRN PRNRF: 0 Discharge Instructions Instructions: Urinary Tract Infection in Women (ED) Additional Instructions: Take Pyridium to help with urinary symptoms. Take antibiotic to treat infection. Follow-up with primary care next week if not better. Return to ED for fever, vomiting, back pain, abdominal pain, other concerns. Referrals: Angy Jacob, [facility]LER [Primary Care Provider] - Medical Decision Making Patient with urinary symptoms consistent with UTI. She was unable to provide much urine. Will send for culture. She has not been on antibiotics recently and per lab records has not had a UTI for at least a year. We will treat is uncomplicated cystitis with primary team and Macrobid. Follow-up with PCP next week if not better. Return to ED for fever, flank pain, abdominal pain, vomiting. HPI General Mode of arrival: ambulatory . Date/Time Provider Initiated Documentation: 12/06/18 06:26 . Limitations to Documentation: no limitations . Information obtained by: patient and RN notes reviewed . HPI Narrative: Patient presents to ED with complaints of urinary frequency and urgency that started last night. She has been up every hour with the urge to urinate. She has minimal dysuria. There has been no hematuria. She has no fevers or chills. There is no flank pain. There is no suprapubic pain. She does have history of UTI. Related Data Home Medications Medication Instructions Recorded Confirmed ibuprofen [Motrin IB] 200 mg PO PRN 08/01/12 12/06/18 olopatadine [Patanol] 1 drp OPHTHALMIC BID PRN drp 08/01/12 12/06/18 acetaminophen [Tylenol Extra 1,000 mg PO PRN PRN 07/21/14 12/06/18 Strength] coenzyme Q10 [CoQ-10] 100 mg PO DAILY 07/17/17 12/06/18 nystatin 4 gm TOPICAL BID #60 gm 07/17/17 12/06/18 albuterol sulfate 2.5 mg INHALATION Q4H PRN #1 box 11/01/17 12/06/18 Osteoblend See Rx Instructions .ROUTE .COMPLEX 04/16/18 12/06/18 cholecalciferol (vitamin D3) 2,000 2,000 unit PO DAILY #90 cap 04/16/18 12/06/18 unit capsule cholecalciferol (vitamin D3) 2,000 2,000 unit PO DAILY 07/15/18 12/06/18 unit capsule magnesium 250 mg tablet 500 mg PO DAILY tab 07/15/18 12/06/18 sertraline 100 mg tablet 100 mg PO DAILY #90 tab-cap 10/11/18 12/06/18 nitrofurantoin macrocrystal 100 mg PO BID #9 cap 12/06/18 phenazopyridine 100 mg PO TID #6 tab 12/06/18 Previous Rx's Medication Instructions Recorded nystatin 4 gm TOPICAL BID #60 gm 07/17/17 albuterol sulfate 2.5 mg INHALATION Q4H PRN #1 box 11/01/17 cholecalciferol (vitamin D3) 2,000 2,000 unit PO DAILY #90 cap 04/16/18 unit capsule sertraline 100 mg tablet 100 mg PO DAILY #90 tab-cap 10/11/18 nitrofurantoin macrocrystal 100 mg PO BID #9 cap 12/06/18 phenazopyridine 100 mg PO TID #6 tab 12/06/18 Allergies Allergy/AdvReac Type Severity Reaction Status Date / Time Sulfa (Sulfonamide Allergy Intermediate HIVES Verified 12/06/18 06:23 Antibiotics) aluminum Allergy Mild Verified 12/06/18 06:23 ZINC GLUCONATE Allergy Mild ITCHING Uncoded 12/06/18 06:23 General Stated Complaint: Urinary KAMI: 4 Review of Systems Constitutional Constitutional: Denies chills and Denies fever(s) Gastrointestinal Gastrointestinal: Denies abdominal pain, Denies nausea and Denies vomiting Genitourinary Genitourinary: Denies hematuria, Reports urinary frequency, Reports dysuria, Denies pelvic pain, Denies flank pain and Reports urinary urgency [facility] Medical History Anatomical narrow angle, left eye (Resolved) CAP (community acquired pneumonia) (Resolved) Depressive disorder (Acute) Essential hypertension (Chronic) Gastroesophageal reflux disease without esophagitis (Chronic 10/13/15) Hemochromatosis, unspecified (Acute 07/17/17) Hepatic steatosis (Chronic 07/17/17) Increased body mass index (Acute) Nuclear sclerotic cataract of left eye (Resolved) Osteopenia (Acute) Skin lesion (Chronic) Surgical History BLADDER REPAIR Cervical Procedure ASPIR CURETT UTERUS Ligation of fallopian tube S/P cataract surgery (Acute 10/29/17) Tonsillectomy and adenoidectomy Social History Smoking/Tobacco Use Status: Never Second Hand Exposure: No Alcohol Intake: current Alcohol Intake frequency: holidays/special occasions only Alcohol type: hard liquor Drug use: Never Substance use type: does not use Caregiver/Support person: Yes Household members: spouse and other Details: 3 granddaughters Housing: house Pets and animals: Yes Pets and animals: cat(s) and dog(s) Current gender identity: female What is your relationship status?: How often do you talk on the phone with friends or family?: three or more times per week How often do you get together with friends or relatives?: once per week How often do you attend religious or sabianist services?: 4 or more times per year Do you belong to any clubs or organized social groups?: decline to answer Panel score (0-1 are the most socially isolated patients): 3 What type of physical activity do you participate in: none Elly/Congregational: Denominational Special elly needs: No Do you feel safe at home: Yes Do you feel safe in your relationship?: Yes Exam Narrative Exam Narrative: Vitals: Afebrile. Hypertensive but stressed with dying upstairs. Other vitals normal. Const: Obese female in NAD. HEENT: NC/AT. Normal facial exam. Eyes: Normal conjunctiva and sclera. Neck: Supple. Trachea midline. Lungs: Normal respiratory effort. GI: Soft. NT/ND. Back: No CVAT. Neuro: A+O x 3. CN grossly in tact. Good strength and no focal deficit. Course Vital Signs Vital signs: Vital Signs Temperature 98.1 F 12/06/18 06:20 Pulse 71 12/06/18 06:20 Respiratory Rate 18 12/06/18 06:20 Blood Pressure 195/72 H 12/06/18 06:20 Pulse Oximetry 98 12/06/18 06:20 Temperature 98.1 F 12/06/18 06:20 Temperature Source Skin 12/06/18 06:20 Pulse 71 12/06/18 06:20 Respiratory Rate 18 12/06/18 06:20 Respiratory Effort 12/06/18 06:26 Blood Pressure 195/72 H 12/06/18 06:20 Blood Pressure Position Sitting 12/06/18 06:20 Pulse Oximetry 98 12/06/18 06:20 Oxygen Delivery Method Room Air 12/06/18 06:20 Oxygen Flow Rate 0 12/06/18 06:20 Pain Level 0 12/06/18 06:26 Lab/Test Results Lab/Test Results: 12/06/18 06:35 Urine - Clean Catch Urine Culture - Pending
[2018-12-06] MEDS: MacroBID 100 MG CAP PO (06:43)
[2018-12-06] MEDS: Phenazopyridine 100 MG TAB PO (06:43)
== END 2018-12-06 06:50 | disposition home or self-care (01) ==
PROVIDERS: Emergency Provider Emergency Medicine; PCP Nurse Practitioner Family
DX: N39.0 Urinary tract infection, site not specified (principal); B96.20 Unspecified Escherichia coli [E. coli] as the cause of diseases classified elsewhere; I10 Essential (primary) hypertension
CPT/HCPCS: 87077; 99283; 87086; 87186

== ENCOUNTER 2019-04-17 08:37 | Outpatient (CLI) | payer MEDICARE, BC, SELFPAY ==
[2019-04-17 11:09] LABS: Iron 113 ug/dL (50-170)
[2019-04-17 11:11] LABS: ALT 22 U/L (14-59); AST 15 U/L (15-37); Albumin 3.7 g/dL (3.4-5.0); Alkaline Phosphatase 107 U/L (46-116); Anion Gap 5.8 mmol/L (3-11); BUN 21 mg/dL (7-18); Bilirubin, Total 0.6 mg/dL (0.2-1.0); CO2 31.2 mmol/L (21.0-32.0); CREATININE 0.89 mg/dL (0.55-1.02); Calcium 8.9 mg/dL (8.5-10.1); Calculated LDL 136 mg/dL (<100); Chloride 105 mmol/L (98-107); Cholesterol 203 mg/dL (<200); Glucose 88 mg/dL (74-106); HDL Cholesterol 47 mg/dL (40-60); Potassium 4.8 mmol/L (3.5-5.1); Sodium 142 mmol/L (136-145); Total Protein 6.9 g/dL (6.4-8.2); Triglyceride 101 mg/dL (<150)
== END 2019-04-17 08:57 ==
PROVIDERS: PCP Nurse Practitioner Family; Visit Provider Nurse Practitioner Family
DX: E78.5 Hyperlipidemia, unspecified (principal); I10 Essential (primary) hypertension; R73.03 Prediabetes; K21.9 Gastro-esophageal reflux disease without esophagitis; E83.119 Hemochromatosis, unspecified
CPT/HCPCS: 36415; 80053; 80061; 83540

== ENCOUNTER 2019-04-29 07:22 | Emergency (ER) | payer MEDICARE, BC, SELFPAY ==
[2019-04-29 07:24] VITALS: BP 174/98; PULSE 85; TEMP 36.6; O2SAT 96
--- NOTE | 2019-04-29 07:45 | DI.RAD_ITS ---
EXAM: XR SHOULDER RT COMPLETE 2+V CLINICAL HISTORY: fall, proximal hum. pain TECHNIQUE: COMPARISON: No exams were available for comparison FINDINGS: Five views were obtained. There is no evidence of a fracture or dislocation. Mild degenerative baird ges of the glenohumeral and acromioclavicular joints are noted. IMPRESSION:
--- NOTE | 2019-04-29 08:00 | DI.RAD_ITS ---
EXAM: XR RIBS RT W PA LAT CHEST CLINICAL HISTORY: fall, right rib pain TECHNIQUE: COMPARISON: CHEST 2 VIEWS PA,LAT from 11/02/2017 FINDINGS: PA and lateral views of the chest and 4 additional views of the right ribs were obtained. The heart is not enlarged. The lungs are clear. No pleural effusion or pneumothorax. No rib fracture seen. IMPRESSION: Negative examination of the chest and ribs.
[2019-04-29] MEDS: Lidocaine 5% Patch 1 PATCH TP (08:06)
[2019-04-29] MEDS: Acetaminophen 500 MG TAB 1000 MG PO (08:06)
[2019-04-29] MEDS: Ibuprofen 800 MG TAB PO (08:07)
--- NOTE | 2019-04-29 08:11 | ED.GENADUL_ITS ---
Discharge Plan Disposition Patient Disposition: HOME Condition: Good Discharge Details Chief Complaint: Orthopedic Clinical Impression: Sprain of right shoulder, Contusion of rib on right side Primary Care Provider: Angy Jacob ED Provider: Avinash Shaffer Home Meds and New Rx's Prescriptions: New lidocaine [Lidoderm] 1 PATCH patch 1 patch Topical Q24H Qty: 4 RF: 0 No Action nystatin 100,000 unit/gram powder 1 applic Topical BID PRN (Reason: dermatitis) Qty: 60 RF: 4 cholecalciferol (vitamin D3) 2,000 unit capsule 2,000 unit PO DAILY RF: 0 olopatadine [Patanol] 5 ML drops 1 drp Ophthalmic BID PRNRF: 0 sertraline 100 mg tablet 100 mg PO DAILY Qty: 90 RF: 4 magnesium 250 mg Tablet 500 mg PO DAILY RF: 0 Discharge Instructions Instructions: Shoulder Sprain (ED), Rib Contusion (ED) Additional Instructions: At this time we see no evidence of significant fracture for your shoulder ribs or clavicle, however I suspect that you have notably irritated the bursa in your shoulder and have sprained your shoulder and ribs. Please use Lidoderm patches, and take 1000 mg of Tylenol every 6 hours and 600 mg of ibuprofen every 6 hours to help with the pain. Ice may also significantly help your shoulder. Use the shoulder sling only as absolutely needed. Please make sure you are moving it 10-12 times per day in all directions to help prevent frozen shoulder syndrome. If your symptoms do not improve in the next 4 to 6 weeks you may require repeat imaging or repeat evaluation by an outside event sales specialist. If you notice any worsening of your symptoms, or any new symptoms such as vomiting, diarrhea, fever, chills, shortness of breath, chest pain, numbness, weakness, or fainting , please return immediately to the emergency department for r eevaluation. Please follow up with your primary care provider as soon as possible for reassessment and reevaluation. As always, it was a pleasure participating in your medical care today. Referrals: Angy Jacob NP [Primary Care Provider] - Medical Decision Making Very pleasant 73-year-old female with a past medical history of o steopenia hypertension high cholesterol who presents today for evaluation after a fall that occurred in less than 1 hour ago. She fell and did not hit her head, but she did hit her right dominant shoulder, as well as her right ribs and breast. Exam demonstrates notable tenderness over the proximal humerus and humeral head in conjunction with right ribs over ribs 5 and 6. No paradoxical lung movements, oxygen saturations are normal, blood pressure and heart rate normal. Symptoms are concerning for rib contusion versus fracture as well as proximal humerus fracture. We will get x-rays, give Tylenol Motrin and Lidoderm patches patient would like to hold off on any narcotics. 8:45 AM X-ray results have returned, no clinical evidence of fracture or radiographic evidence per radiology. There is a slight deformity of the mid clavicle, however this appears to be chronic, the patient has no tenderness there. Inconsistent with acute fracture. Patient's pain is notably improved. We will give a sling for comfort however had a long discussion with her regarding the importance of continued movement to prevent frozen shoulder syndrome. We discussed the importance of Tylenol Motrin and ice and close follow-up. Discussed red flags which to return. Diagnosis sprain of the shoulder and contusion of the right ribs. I have extensively reviewed the treatment plan and discharge instructions with the patient. I have addressed all patient concerns at this time. The patient was made aware of what symptoms to monitor for that would warrant a return to the emergency department. Discussed the plan with the patient, they demonstrate verbal understanding and agreement with our assessment and plan at this time. HPI General Date/Time Provider Initiated Documentation: 04/29/19 07:57 . HPI Narrative: This is a pleasant 73-year-old female with a past medical history of hypertension high cholesterol osteopenia who presents today for evaluation after fall. Patient was walking when she had a mechanical slip, and fell and hit her right breast right ribs and right shoulder. This occurred less than an hour ago. She has notable pain with movement of the right shoulder. As well as pain on palpation of the right ribs and breast. She denies any difficulty breathing, pain with breathing, or shortness of breath. She denies any numbness tingling or focal weakness. She did not hit her head, she had no loss of consciousness, she is not on blood thinners. Related Data Home Medications Medication Instructions Recorded Confirmed olopatadine [Patanol] 1 drp OPHTHALMIC BID PRN drp 08/01/12 04/29/19 cholecalciferol (vitamin D3) 50 2,000 unit PO DAILY 07/15/18 04/29/19 mcg (2,000 unit) capsule sertraline 100 mg tablet 100 mg PO DAILY #90 tab-cap 10/11/18 04/29/19 nystatin 100,000 unit/gram topical 1 applic TOPICAL BID PRN #60 gm 04/24/19 04/29/19 powder lidocaine [Lidoderm] 1 patch TOPICAL Q24H #4 patch 04/29/19 magnesium 500 mg PO DAILY 04/29/19 04/29/19 Previous Rx's Medication Instructions Recorded sertraline 100 mg tablet 100 mg PO DAILY #90 tab-cap 10/11/18 nystatin 100,000 unit/gram topical 1 applic TOPICAL BID PRN #60 gm 04/24/19 powder lidocaine [Lidoderm] 1 patch TOPICAL Q24H #4 patch 04/29/19 Allergies Allergy/AdvReac Type Severity Reaction Status Date / Time Sulfa (Sulfonamide Allergy Intermediate HIVES Verified 04/29/19 07:29 Antibiotics) aluminum Allergy Mild Verified 04/29/19 07:29 ZINC GLUCONATE Allergy Mild ITCHING Uncoded 04/29/19 07:29 General Stated Complaint: Orthopedic KAMI: 3 Review of Systems All systems reviewed & are unremarkable except as noted in HPI and below PFSH Social History (Updated 04/28/19 @ 09:57 by Fausto Hess) Smoking/Tobacco Use Status: Never Second Hand Exposure: Yes Alcohol Intake: current Alcohol Intake frequency: holidays/special occasions only Alcohol type: hard liquor Drug use: Never Substance use type: does not use Caregiver/Support person: No Household members: children and other Details: 3 granddaughters (16, 12 and 5) Housing: house Pets and animals: Yes Pets and animals: cat(s) and dog(s) Sexually active: No Do you think of yourself as: straight/heterosexual Current gender identity: female What is your relationship status?: How often do you talk on the phone with friends or family?: three or more times per week How often do you get together with friends or relatives?: once per week How often do you attend cheondoism or synagogue services?: 4 or more times per year Do you belong to any clubs or organized social groups?: decline to answer Panel score (0-1 are the most socially isolated patients): 2 What type of physical activity do you participate in: none Elly/Judaism: Sabianism Special elly needs: No Seatbelt use: always Drive intox or ride w/intox pick up and delivery driver: No Do you feel safe at home: Yes Do you feel safe in your relationship?: Yes Female Reproductive History Menstrual Menopause type: natural History History 3 Para 3 Hx # Term Pregnancies Multiple births Hx # Pregnancies Ectopic pregnancies AB induced Hx Number of Living Children 3 AB spontaneous Exam Narrative Exam Narrative: 1.Const: Well-nourished, Well-developed, appearing stated age 2.Eyes: PERRL, no conjunctival injection, and symmetrical lids. 3.ENT: Atraumatic external nose and ears. Moist MM. Neck: Symmetric, trachea midline, No thyromegaly. 4.CVS: +S1/S2, No murmurs or gallops. Peripheral pulses 2+ and equal in all extremities. Brisk capillary refill in all extremities. 5.RESP: Unlabored respiratory effort. Clear to auscultation bilaterally. No wheezes rales or rhonchi 6.GI: Soft, Nontender/Nondistended, No hepatosplenomegaly. No guarding or rebound. 7.MSK: Normocephalic, Extremities w/o deformity. No cyanosis or clubbing. Patient has pain and tenderness over the right shoulder itself over the proximal humerus and humeral head. Pain is present with movement in all directions including internal and external rotation as well as flexion and extension. No tenderness in the mid humerus or elbow. No tenderness in the wrist, anatomical snuffbox, or forearm. Normal movement and strength of the elbow wrist and hand. Normal sensation, normal neurovascular exam. Palpation of the breast demonstrates mild tenderness on the anterior lateral aspect of the breast, as well as rib 5 and 6 in the anterior axillary line. No evidence of bruising or paradoxical lung movement. No midline cervical thoracic or lumbar spine tenderness. No tenderness for the remainder the chest or other extremities. No signs of trauma to the head. 8.Skin: Warm, Dry. No rashes or lesions. 9.Neuro: mechanical service technician II-XII grossly intact. Sensation grossly intact, no focal neurologic deficits. 10.Psych: (AAO) x3. Appropriate mood and affect Course Vital Signs Vital signs: Vital Signs Temperature 36.6 C 04/29/19 07:24 Pulse 85 04/29/19 07:24 Blood Pressure 174/98 H 02/25/20 07:24 Pulse Oximetry 96 04/29/19 07:24 Temperature 36.6 C 04/29/19 07:24 Temperature Source Temporal Artery Scan 04/29/19 07:24 Pulse 85 04/29/19 07:24 Respiratory Effort Non-Labored 04/29/19 07:27 Blood Pressure 174/98 H 04/29/19 07:24 Blood Pressure Position Sitting 04/29/19 07:24 Pulse Oximetry 96 04/29/19 07:24 Oxygen Delivery Method Room Air 04/29/19 07:24 Oxygen Flow Rate 0 04/29/19 07:24 Pain Level 7 04/29/19 08:07
== END 2019-04-29 08:58 | disposition home or self-care (01) ==
PROVIDERS: Emergency Provider Student in an Organized Health Care Education/Training Program; PCP Nurse Practitioner Family
DX: S43.401A Unspecified sprain of right shoulder joint, initial encounter (principal); S20.211A Contusion of right front wall of thorax, initial encounter; W00.0XXA Fall on same level due to ice and snow, initial encounter; I10 Essential (primary) hypertension
CPT/HCPCS: 99284; 71046; 71100; 73030; 99283; L3650

== ENCOUNTER 2019-10-14 01:30 | Outpatient (CLI) | payer MEDICARE, BC, SELFPAY ==
--- NOTE | 2019-10-14 06:30 | DI.US_ITS ---
EXAM: US LOWER EXTREMITY VENOUS RT CLINICAL HISTORY: RT LOWER LEG SWELLING/PAIN,M79.89 TECHNIQUE: Right lower extremity venous ultrasound performed using grayscale, color-flow, and spectr al Doppler analysis. COMPARISON: No exams were available for comparison FINDINGS: The right common femoral, femoral and popliteal veins demonstrate normal compressibility, augmentatio n, and color Doppler. The posterior tibial veins are patent. The saphenofemoral junction is unremark able. There is no evidence of a Enriquez cyst. The soft tissues are unremarkable. IMPRESSION: No DVT. DATA REPOSITORY:
--- NOTE | 2019-10-14 08:35 | DI.RAD_ITS ---
EXAM: XR KNEE RT 3V AP,LAT,LELE CLINICAL HISTORY: right lateral knee pain,OSTEOPENIA,M85.89. TECHNIQUE: 2D digital imaging was performed. COMPARISON: CR XR RIBS RT W PA LAT CHEST from 04/29/2019 FINDINGS: BONES: No acute fracture is present. No bony destructive lesion is seen. JOINTS: The knee is normally aligned. No joint effusion is seen. SOFT TISSUE: Normal. IMPRESSION: Unremarkable radiographs of the right knee. DATA REPOSITORY: RADIATION DOSE DELIVERED:
--- NOTE | 2019-10-14 08:40 | DI.RAD_ITS ---
EXAM: XR TIB/FIB RT CLINICAL HISTORY: proximal - mid fibular pain,OSTEOPENIA,M85.89. TECHNIQUE: 2D digital imaging was performed. COMPARISON: No exams were available for comparison FINDINGS: BONES: No acute fracture is present. No bony destructive lesion is seen. Visualized portion of knee a nd ankle joints are unremarkable. SOFT TISSUE: Normal. IMPRESSION: Unremarkable radiographs of the right tibia and fibula. DATA REPOSITORY: RADIATION DOSE DELIVERED:
== END 2019-10-14 01:50 ==
PROVIDERS: PCP Nurse Practitioner Family; Visit Provider Nurse Practitioner Family
DX: M85.89 Other specified disorders of bone density and structure, multiple sites (principal); M79.662 Pain in left lower leg; M25.561 Pain in right knee; M79.89 Other specified soft tissue disorders
CPT/HCPCS: 73562; 73590; 93971

== ENCOUNTER → 2019-11-04 10:53 | Outpatient (BNVA) | payer MEDICARE, BC, SELFPAY | PROVIDERS: PCP Nurse Practitioner Family; Referring Provider Nurse Practitioner Family; Visit Provider Orthopaedic Surgery | DX: R22.41 Localized swelling, mass and lump, right lower limb (principal); E83.119 Hemochromatosis, unspecified; I10 Essential (primary) hypertension | CPT/HCPCS: 99214 ==

== ENCOUNTER 2019-11-08 11:58 | Emergency (ER) | payer MEDICARE, BC, SELFPAY ==
[2019-11-08] VITALS (41 sets, daily range): BP systolic 147–215; BP diastolic 61–116; PULSE 62–77; RESP 12–27; TEMP 36.4–36.6; O2SAT 94–99
--- NOTE | 2019-11-08 12:00 | RT.EKG_ITS ---
APPROVED REPORT Exam: Resting ECG Patient Location: E HR:65 bpm ECG Measurements Heart Rate 65 AXIS WI 149 P 39 QRSd 86 QRS 40 QT 393 T 19 QTc 411 Conclusion Sinus rhythm...normal P axis, V-rate 60- 99
[2019-11-08 12:25] LABS: Abs Immature Grans 0.02 10^3/uL (0.0-0.06); Absolute Basophil Count 0.05 10^3/uL (0.0-0.2); Absolute Eosinophil Count 0.39 10^3/uL (0.0-0.7); Absolute Lymphocyte Count 2.25 10^3/uL (1.2-3.4); Absolute Monocyte Count 0.66 10^3/uL (0.1-0.8); Absolute Neutrophil Count 4.99 10^3/uL (1.2-6.7); Basophils % 0.6; Eosinophils % 4.7; HCT 47.4 % (36.0-46.0); HGB 15.6 g/dL (11.2-15.7); Immature Grans % 0.2; Lymphocytes % 26.9; MCH 32.6 pg (27.0-33.0); MCHC 32.9 % (32.0-36.0); MPV 9.8 fL (8.0-11.0); Monocytes % 7.9; Neutrophils % 59.7; Nucleated RBC 0 %; Platelet Count 243 10^3/uL (130-400); RBC 4.79 10^6/uL (3.93-5.22); RDW 11.7 % (11.7-14.6); RDW-SD 42.5 fL; WBC 8.36 10^3/uL (4.4-10.8)
[2019-11-08] MEDS: FAMOTIDINE 20 MG/50 ML BAG 200 MG IVPB (12:26)
[2019-11-08 12:44] LABS: ALT 37 U/L (14-59); AST 24 U/L (15-37); Alkaline Phosphatase 108 U/L (46-116); Anion Gap 4.6 mmol/L (3-11); BUN 21 mg/dL (7-18); Bilirubin, Total 0.5 mg/dL (0.2-1.0); CO2 31.4 mmol/L (21.0-32.0); CREATININE 1.06 mg/dL (0.55-1.02); Calcium 9.4 mg/dL (8.5-10.1); Chloride 106 mmol/L (98-107); Glucose 99 mg/dL (74-106); NT-proBNP 124 pg/mL (<300); Potassium 4.1 mmol/L (3.5-5.1); Sodium 142 mmol/L (136-145); Total Protein 7.7 g/dL (6.4-8.2)
[2019-11-08 12:45] LABS: Troponin I < 0.05 ng/mL (<0.06)
--- NOTE | 2019-11-08 12:54 | ED.GENADUL_ITS ---
Discharge Plan Disposition Patient Disposition: HOME Condition: Stable Discharge Details Clinical Impression: Chest pain, Gastroesophageal reflux disease Primary Care Provider: Angy Jacob ED Provider: Miguel Jordan Home Meds and New Rx's Prescriptions: Continued sertraline 100 mg tablet 100 mg PO DAILY Qty: 90 RF: 4 magnesium 250 mg Tablet 500 mg PO DAILY RF: 0 melatonin 10 mg Tablet 10 mg PO DAILY RF: 0 No Action gabapentin 300 mg capsule 300 mg PO TID Qty: 90 RF: 0 cholecalciferol (vitamin D3) 50 mcg (2,000 unit) capsule 2,000 unit PO DAILY Qty: 90 RF: 4 lisinopril 10 mg tablet 20 mg PO DAILY Qty: 180 RF: 4 Discharge Instructions Instructions: Chest Pain (ED), Gastroesophageal Reflux Disease (ED), Hypertension (ED) Additional Instructions: Please follow-up with your primary care physician. Persist you may need additional outpatient diagnostic testing. Please contact your primary care physician to arrange follow-up. Return to the ER for any worsening or new concerning symptoms. Referrals: Angy Jacob NP [Primary Care Provider] - Discharge Data Discharge Date/Time-TO BE ENTERED AT DEPARTURE: 11/08/19 16:15 Medical Decision Making 1300??73-year-old female with history of hypertension, not currently on anti- hypertensives, hyperlipidemia here with retrosternal chest discomfort described as burning, worse after eating spicy food. Patient generally not feeling well today. Consider ACS given risk factors. ECG was reviewed interpreted by me: Please see report, nondiagnostic, no STEMI. Plan to check troponin. Suspect GI etiology including GERD. I will give Pepcid 20 mg IV and Tums. 15:10 --labs reviewed and nondiagnostic. Troponin negative. Blood pressure has improved on its own but is still elevated with a systolic of 175. Patient notes she was feeling better after Tums and Pepcid and then had some water and states symptoms then returned. We will give Protonix. Delta troponin pending. Given persistently elevated blood pressure, I had a discussion with the patient about starting antihypertensive. She notes that her primary care physician has suggested the need for oral antihypertensive in the past. She is agreeable to starting antihypertensive at this time. I will initiate treatment with lisinopril 10 mg orally. Chest x-ray was reviewed interpreted by radiology: No acute findings, mediastinum unremarkable with no cardiomegaly. --Second troponin negative. Patient reassessed remained stable. Plan for outpatient follow-up. Disposition decision was made weighing the risks and benefits of hospitalization versus outpatient treatment, the risk for further decompensation, and the patient's wishes. The patient was stable and requested discharge. Prior to discharge, my usual and customary return precautions were reviewed with the patient - this included follow-up instructions and reason to return to the emergency department if condition worsens, does not improve as expected, or other new concerns arise. HPI General Mode of arrival: ambulatory . Date/Time Provider Initiated Documentation: 11/08/19 12:13 . Limitations to Documentation: no limitations . Information obtained by: patient . HPI Narrative: 73-year-old female with history of hyperlipidemia, prediabetes, hypertension not currently on antihypertensive, generalized anxiety disorder, nonalcoholic fatty liver disease, hereditary hemochromatosis, here with chief complaint of chest pain. Patient notes retrosternal chest burning. Symptoms started 3 to 4 days ago and have persisted. Patient describes it as an acid reflux-like burning sensation. Pain is worse after eating. She specifically notes the pain was worse after eating a bowl of chili yesterday. She has associated dry cough. No shortness of breath. No nausea or vomiting. Patient notes he generally did not feel well this morning and was concerned her blood pressure might be elevated. She sought care at [facility] and was informed that her blood pressure was elevated. She was sent here to the emerge department for further evaluation. Related Data Home Medications Medication Instructions Recorded Confirmed magnesium 500 mg PO DAILY 04/29/19 11/18/19 sertraline 100 mg tablet 100 mg PO DAILY #90 tab-cap 07/21/19 11/18/19 melatonin 10 mg PO DAILY 11/08/19 11/18/19 cholecalciferol (vitamin D3) 50 2,000 unit PO DAILY #90 cap 11/14/19 11/18/19 mcg (2,000 unit) capsule gabapentin 300 mg capsule 300 mg PO TID #90 cap 11/18/19 11/18/19 lisinopril 10 mg tablet 20 mg PO DAILY #180 tab 11/28/19 Previous Rx's Medication Instructions Recorded sertraline 100 mg tablet 100 mg PO DAILY #90 tab-cap 07/21/19 cholecalciferol (vitamin D3) 50 2,000 unit PO DAILY #90 cap 11/14/19 mcg (2,000 unit) capsule gabapentin 300 mg capsule 300 mg PO TID #90 cap 11/18/19 lisinopril 10 mg tablet 20 mg PO DAILY #180 tab 11/28/19 Allergies Allergy/AdvReac Type Severity Reaction Status Date / Time Sulfa (Sulfonamide Allergy Intermediate HIVES Verified 11/18/19 11:10 Antibiotics) aluminum Allergy Mild Verified 11/18/19 11:10 ZINC GLUCONATE Allergy Mild ITCHING Uncoded 11/18/19 11:10 General Stated Complaint: Chest Pain KAMI: 2 Review of Systems All systems reviewed & are unremarkable except as noted in HPI and below Constitutional Constitutional: Denies fever(s) Cardiovascular Cardiovascular: Reports as per HPI Respiratory Respiratory: Reports as per HPI Gastrointestinal Gastrointestinal: Denies abdominal pain and Denies vomiting ON LICENSE OF [facility] Medical History (Updated 11/27/19 @ 13:39 by Cinthia Rivera DO) Bulimia nervosa Depressive disorder Endometrial mass Endometrial polyp Essential hypertension Fluid in endometrial cavity Gastroesophageal reflux disease Generalized anxiety disorder Hereditary hemochromatosis 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 Father , 72 Hyperlipidemia Heart disease Hypertension Prostate cancer Myocardial infarction Sister Hyperlipidemia Depression Son Depression Daughter Mental disorder Substance abuse Depression Daughter Maria Luz-Danlos disease Depression Maternal Grandfather Myocardial infarction Heart disease Maternal Grandmother No problems noted. Paternal Grandfather Heart disease Myocardial infarction Paternal Grandmother Hypertension Hyperlipidemia Heart disease Type 2 diabetes mellitus Myocardial infarction Social History Smoking/Tobacco Use Status: Never Second Hand Exposure: Yes Alcohol Intake: current Alcohol Intake frequency: holidays/special occasions only Alcohol type: hard liquor Drug use: Never Substance use type: does not use Caregiver/Support person: No Household members: children and other Details: 3 granddaughters (16, 12 and 5) Housing: house Pets and animals: Yes Pets and animals: cat(s) and dog(s) Sexually active: No Do you think of yourself as: straight/heterosexual Current gender identity: female What is your relationship status?: How often do you talk on the phone with friends or family?: three or more times per week How often do you get together with friends or relatives?: once per week How often do you attend jehovah's witness or episcopal services?: 4 or more times per year Do you belong to any clubs or organized social groups?: decline to answer Panel score (0-1 are the most socially isolated patients): 2 What type of physical activity do you participate in: none Elly/Buddhism: Jehovah'S Witness Special elly needs: No Seatbelt use: always Drive intox or ride w/intox drive away driver: No Do you feel safe at home: Yes Do you feel safe in your relationship?: Yes Female Reproductive History Menstrual Menopause type: natural History History 3 Para 3 Hx # Term Pregnancies Multiple births Hx # Pregnancies Ectopic pregnancies AB induced Hx Number of Living Children 3 AB spontaneous Exam Const General: cooperative and no acute distress HENMT Mouth: moist mucous membranes Eyes Conjunctivae: normal conjunctivae Sclera: normal sclerae Neck Neck: trachea midline and supple Resp Auscultation: clear to auscultation bilaterally, no rales, no rhonchi and no wheezes Cardio Jugular venous pressure: no JVD Rate: regular rate and not tachycardic Rhythm: regular rhythm GI Palpation: soft, not firm, no guarding, no masses, not rigid and nontender Skin General skin exam: no rashes or lesions noted Neuro General: patient alert, patient awake, patient oriented x3 and tone normal Extrem General: no calf tenderness and edema Laterality: right (Anterior mckinley, ongoing) Psych Appearance: grossly normal Mental Status: mental status grossly normal Course Vital Signs Vital signs: Vital Signs Temperature 36.6 C 11/08/19 12:03 Pulse 70 11/08/19 12:03 Respiratory Rate 16 11/08/19 12:03 Blood Pressure 209/76 H 11/08/19 12:03 Pulse Oximetry 97 11/08/19 12:03 Temperature 36.6 C 11/08/19 12:03 Temperature Source Tympanic 11/08/19 12:03 Pulse 70 11/08/19 12:03 Respiratory Rate 16 11/08/19 12:08 Respiratory Effort 11/08/19 12:08 Respiratory Depth Normal 11/08/19 12:08 Respiratory Pattern Normal 11/08/19 12:08 Blood Pressure 209/76 H 11/08/19 12:03 Blood Pressure Position Sitting 11/08/19 12:03 Pulse Oximetry 97 11/08/19 12:03 Oxygen Delivery Method Room Air 11/08/19 12:03 Oxygen Flow Rate 0 11/08/19 12:03 Pain Level 5 11/08/19 12:08 Lab/Test Results Lab/Test Results: Laboratory Tests Range/Units 11/08/19 11/08/19 12:15 12:15 WBC (4.4-10.8) 10^3/uL 8.36 RBC (3.93-5.22) 10^6/uL 4.79 Hgb (11.2-15.7) g/dL 15.6 Hct (36.0-46.0) % 47.4 H MCV (80-95) fL 99.0 H MCH (27.0-33.0) pg 32.6 MCHC (32.0-36.0) % 32.9 RDW (11.7-14.6) % 11.7 Plt Count (130-400) 10^3/uL 243 MPV (8.0-11.0) fL 9.8 Immature Gran % 0.2 Neutrophils % 59.7 Lymphocytes % 26.9 Monocytes % 7.9 Eosinophils % 4.7 Basophils % 0.6 Nucleated RBC % % 0 Absolute Neutrophils (1.2-6.7) 10^3/uL 4.99 Absolute Lymphocytes (1.2-3.4) 10^3/uL 2.25 Absolute Monocytes (0.1-0.8) 10^3/uL 0.66 Absolute Eosinophils (0.0-0.7) 10^3/uL 0.39 Absolute Basophils (0.0-0.2) 10^3/uL 0.05 Sodium (136-145) mmol/L 142 Potassium (3.5-5.1) mmol/L 4.1 Chloride (98-107) mmol/L 106 Carbon Dioxide (21.0-32.0) mmol/L 31.4 Anion Gap (3-11) mmol/L 4.6 BUN (7-18) mg/dL 21 H Creatinine (0.55-1.02) mg/dL 1.06 H Estimated GFR/1.73 m2 (mL/min/1.73m2) 51.10 Glucose (74-106) mg/dL 99 Calcium (8.5-10.1) mg/dL 9.4 Total Bilirubin (0.2-1.0) mg/dL 0.5 AST (15-37) U/L 24 ALT (14-59) U/L 37 Alkaline Phosphatase (46-116) U/L 108 Troponin I (<0.06) ng/mL < 0.05 NT-Pro-B Natriuret Pep (<300) pg/mL 124 Total Protein (6.4-8.2) g/dL 7.7 Albumin (3.4-5.0) g/dL 4.0
--- NOTE | 2019-11-08 13:00 | DI.RAD_ITS ---
EXAM: XR CHEST 2V PA LATERAL CLINICAL HISTORY: chest pain TECHNIQUE: 2D digital imaging was performed. COMPARISON: CR XR RIBS RT W PA LAT CHEST from 04/29/2019 FINDINGS: MEDIASTINUM: Normal. HEART: Normal. PULMONARY VASCULATURE: Normal. LUNGS: Clear. PLEURAL SPACE: No pleural effusion or pneumothorax. BONE:Normal. OTHER FINDINGS:Normal. IMPRESSION: No acute pulmonary findings. DATA REPOSITORY: RADIATION DOSE DELIVERED:
[2019-11-08 13:08] LABS: Bilirubin Negative (Negative); Blood Negative (Negative); Clarity Clear (Clear); Glucose Negative (Negative); Ketones Negative (Negative); Leukocyte Esterase Negative (Negative); Nitrite Negative (Negative); Urobilinogen 0.2 EU/dL (Up TO 0.2)
--- NOTE | 2019-11-08 13:18 | DI.VRAD_ITS ---
PROCEDURE INFORMATION: Exam: XR Chest, 2 Views Exam date and time: 11/08/2019 12:55 PM Age: 73 years old Clinical indication: Chest pain; Type not specified TECHNIQUE: Imaging protocol: XR of the chest Views: 2 views. COMPARISON: CR XR RIBS RT W PA LAT CHEST 04/29/2019 8:20 AM FINDINGS: Lungs: Unremarkable. No consolidation. Pleural space: Unremarkable. No pleural effusion. No pneumothorax. Heart/Mediastinum: Unremarkable. No cardiomegaly. Bones/joints: Unremarkable. IMPRESSION: No acute findings. Dictated and Authenticated by: Analilia Viveros MD. Ordering:RAYMUNDO Rivera MD
[2019-11-08] MEDS: Calcium Carbonate *TUMS* 500 MG CHEW PO (13:23)
--- NOTE | 2019-11-08 13:23 | NUR.NOTE ---
Nursing Note: Per provider request a BP was taken at the same time at both upper extremities. Right arm 177/98, Left arm 172/68. MD Jordan made aware.
--- NOTE | 2019-11-08 15:00 | RT.EKG_ITS ---
APPROVED REPORT Exam: Resting ECG Patient Location: E HR:68 bpm ECG Measurements Heart Rate 68 AXIS NE 156 P 21 QRSd 85 QRS 29 QT 393 T 15 QTc 417 Conclusion Sinus rhythm...normal P axis, V-rate 60- 99
[2019-11-08] MEDS: Pantoprazole 40 MG TABCR PO (15:28)
[2019-11-08] MEDS: Lisinopril 10 MG TAB PO (15:28)
[2019-11-08 15:36] LABS: Troponin I < 0.05 ng/mL (<0.06)
== END 2019-11-08 16:15 | disposition home or self-care (01) ==
PROVIDERS: Emergency Provider Student in an Organized Health Care Education/Training Program; PCP Nurse Practitioner Family
DX: R07.89 Other chest pain (principal); K21.9 Gastro-esophageal reflux disease without esophagitis; I10 Essential (primary) hypertension
CPT/HCPCS: 80053; 93005; 96365; 99284; 71046; 81003; 83880; 84484; 85025; 93010

== ENCOUNTER 2019-11-09 19:26 | Emergency (ER) | payer MEDICARE, BC, SELFPAY ==
[2019-11-09] VITALS (22 sets, daily range): BP systolic 116–201; BP diastolic 55–99; PULSE 63–89; RESP 16; TEMP 36.5; O2SAT 92–97
--- NOTE | 2019-11-09 19:45 | DI.CT_ITS ---
EXAM: CT ABDOMEN PELVIS W CLINICAL HISTORY: left upper abd pain. TECHNIQUE: Imaging Protocol: Axial computed tomography images with coronal and sagittal reformatted images were created and reviewed CONTRAST MATERIAL: Intravenous: Omnipaque 350 Contrast volume:100 ml Oral: no COMPARISON: CT RENAL COLIC WO CONTRAST from 04/28/2011 FINDINGS: ABDOMEN: Lung Bases: Normal where visualized. Liver: Mild fatty infiltration no measurable mass. Gallbladder and biliary tract: No radiodense calculus or dilation. Pancreas: Normal density, no abnormal calcifications or inflammatory process. Spleen: Normal. Kidneys: Normal size, contour and axis. No radiodense stones or obstructive uropathy. No masses seen. Left renal cyst. Adrenal glands: Small right adenoma. Abdominal Aorta: Abdominal portion non-dilated. PELVIS: Bladder: Symmetric distention, no gross wall thickening. Bowel: No obstruction or bowel wall thickening. Small hiatal hernia. Scattered diverticulosis. No d iverticulitis or other inflammatory change. Peritoneal cavity: No ascites, collection or mesenteric inflammatory response. Bones: Mild degenerative changes. Reproductive organs: Abnormal thickening of the endometrium versus fluid. Lymph nodes: Unremarkable. Impression: No acute abnormality. Abnormal endometrial thickening versus fluid within the endometrial cavity is noted. An ultrasound could be considered for further evaluation. RADIATION DOSE DELIVERED: Total DLP DATA REPOSITORY: All CT scans at this facility are submitted to the National Radiology Data Registry (NRDR) Dose Index Registry (DIR) with the [employer] (ACR). RADIATION OPTIMIZATION: All CT scans at this facility use at least one of these dose optimization te chniques: automated exposure control; mA and/or kV adjustment per patient size (includes targeted exa ms where dose is matched to clinical indication); or iterative reconstruction.
[2019-11-09 19:59] LABS: Abs Immature Grans 0.02 10^3/uL (0.0-0.06); Absolute Basophil Count 0.05 10^3/uL (0.0-0.2); Absolute Lymphocyte Count 2.32 10^3/uL (1.2-3.4); Absolute Monocyte Count 0.74 10^3/uL (0.1-0.8); Absolute Neutrophil Count 5.22 10^3/uL (1.2-6.7); Basophils % 0.6; Eosinophils % 3.5; HCT 43.5 % (36.0-46.0); HGB 14.9 g/dL (11.2-15.7); Immature Grans % 0.2; Lymphocytes % 26.8; MCH 32.8 pg (27.0-33.0); MCHC 34.3 % (32.0-36.0); MCV 95.8 fL (80-95); MPV 9.6 fL (8.0-11.0); Monocytes % 8.6; Neutrophils % 60.3; Nucleated RBC 0 %; Platelet Count 225 10^3/uL (130-400); RBC 4.54 10^6/uL (3.93-5.22); RDW 11.6 % (11.7-14.6); RDW-SD 40.7 fL; WBC 8.65 10^3/uL (4.4-10.8)
[2019-11-09] MEDS: hydrALAZINE 20 MG/ML VIAL 10 MG IVP (20:06)
[2019-11-09] MEDS: Omnipaque 350 MG/ML 100 ML BTL IJ (20:19)
[2019-11-09] MEDS: Normal Saline - Diluent 50 ML VIAL IV (20:22)
[2019-11-09] MEDS: Normal Saline Flush 10 ML SYR IVP (20:23)
[2019-11-09 20:27] LABS: ALT 34 U/L (14-59); AST 29 U/L (15-37); Albumin 3.8 g/dL (3.4-5.0); Alkaline Phosphatase 93 U/L (46-116); Anion Gap 6.2 mmol/L (3-11); BUN 26 mg/dL (7-18); Bilirubin, Total 0.6 mg/dL (0.2-1.0); CO2 27.8 mmol/L (21.0-32.0); Calcium 9.4 mg/dL (8.5-10.1); Chloride 105 mmol/L (98-107); Estimated GFR 48.96 (mL/min/1.73m2); Glucose 120 mg/dL (74-106); Lipase 97 U/L (73-393); Potassium 4.2 mmol/L (3.5-5.1); Sodium 139 mmol/L (136-145)
--- NOTE | 2019-11-09 21:14 | DI.VRAD_ITS ---
PROCEDURE INFORMATION: Exam: CT Abdomen And Pelvis With Contrast Exam date and time: 11/09/2019 7:52 PM Age: 73 years old Clinical indication: Patient HX: Left upper abd pain TECHNIQUE: Imaging protocol: Computed tomography of the abdomen and pelvis with intravenous contrast. Radiation optimization: All CT scans at this facility use at least one of these dose optimization techniques: automated exposure control; mA and/or kV adjustment per patient size (includes targeted exams where dose is matched to clinical indication); or iterative reconstruction. Contrast material: OMNI 350; Contrast volume: 100 ml; Contrast route: INTRAVENOUS (IV); COMPARISON: SC ABDOMEN ULTRASOUND (P) 03/27/2017 4:53 PM FINDINGS: Lungs: Lung bases are clear. Mediastinal space: There is a 3.1 x 2.7 cm small hiatal hernia . Liver: There is mild hepatic steatosis. Gallbladder and bile ducts: Normal. No calcified stones. No ductal dilation. Pancreas: Normal. No ductal dilation. Spleen: Normal. No splenomegaly. Adrenals: Right adrenal gland has 1.4 x 1.6 cm focal nodule which could reflect adenoma . Kidneys and ureters: There is an exophytic left renal cyst. Stomach and bowel: Descending, sigmoid and rectum are not distended. The remaining large bowel demonstrates scattered foci of diverticulosis without signs of acute inflammation. Appendix is not recognized, however there is no pericecal inflammation . Small bowel is within normal limits in size. Stomach is nondistended, otherwise unremarkable. Appendix: See Stomach and bowel finding. Intraperitoneal space: Unremarkable. No free air. No significant fluid collection. Vasculature: Unremarkable. No abdominal aortic aneurysm. Lymph nodes: There is no abnormal lymphadenopathy. Bladder: Urinary bladder is unremarkable. Reproductive: There is a anteverted. There is a large amount of fluid within the uterine cavity. The right adnexa demonstrates a cyst which measures 2.0 x 1.8 cm. Left adnexa is not visualized. Bones/joints: Osseous structures demonstrate no acute abnormality. There is no focal lytic or blastic lesion. There are mild degenerative changes in the T11-T12 vertebra. Soft tissues: There is a small umbilical hernia which contains fat. IMPRESSION: 1. No acute intra abdominal abnormality. 2. Large amount of fluid within endometrial cavity. In the absence of normal menstrual period and advanced age and without hormonal intake and without recent intervention, this is abnormal and could reflect endometrial hyperplasia or dysplasia without excluding underlying endometrial cancer. Further evaluation might be considered, if clinically indicated. 3. 2.0 cm right ovarian cyst is nonspecific, however, 1 year follow-up with ultrasound might be considered. 4. Hepatic steatosis. 5. Mild diverticulosis of large bowel without signs of acute inflammation. 6. Decompressed distal large bowel is nonspecific and could reflect peristaltic movement, however, it could be due to diarrhea illness clinical correlation might be considered. 7. Small hiatal hernia. Dictated and Authenticated by: Stuart Tejada MD. Ordering:EDMOND Jean MD
--- NOTE | 2019-11-09 21:43 | ED.GENADUL_ITS ---
Discharge Plan Disposition Patient Disposition: HOME Condition: Improving Discharge Details Chief Complaint: Abd Prob Clinical Impression: Abdominal pain Primary Care Provider: Angy Jacob ED Provider: Miranda Lopez Home Meds and New Rx's Prescriptions: Continued cholecalciferol (vitamin D3) 2,000 unit capsule 2,000 unit PO DAILY RF: 0 sertraline 100 mg tablet 100 mg PO DAILY Qty: 90 RF: 4 magnesium 250 mg Tablet 500 mg PO DAILY RF: 0 melatonin 10 mg Tablet 10 mg PO DAILY RF: 0 famotidine [Pepcid] 20 mg tablet 20 mg PO BID Qty: 60 RF: 0 lisinopril 10 mg tablet 10 mg PO DAILY Qty: 30 RF: 0 Discharge Instructions Instructions: Abdominal Pain (ED) Additional Instructions: Continue your usual medications as previously directed. Keep your diet bland low-fat. Follow-up with GI for further outpatient evaluation including possible EGD. Continue to monitor your blood pressure and follow-up with your primary care provider about adjustments in your lisinopril. Coincidental finding on CT scan shows large amount of fluid within the endometrial cavity please follow-up with [facility] for further evaluation, there was also a 2 cm right ovarian cyst which is recommended 1 year follow-up with ultrasound. Referrals: Angy Jacob, [facility] [Primary Care Provider] - Gloria Fields MD [ [facility] STAFF PHYSICIAN] - Esmer Vazquez MD [ [facility] STAFF PHYSICIAN] - (abd ct follow up, large amount of fluid within endometrial cavity) Medical Decision Making Patient presents with left upper abdominal pain after eating tonight. No chest pain, pain is reproducible. Her pain is likely GI. CMP CBC lipase obtained and all with no acute findings. CT abdomen and pelvis with IV contrast shows no acute intra-abdominal abnormality. Coincidental finding of a large amount of fluid within endometrial cavity 2.0 cm right ovarian cyst nonspecific, hepatic steatosis, mild diverticulosis of the large bowel without signs of acute inflammation decompressed distal large bowel which is nonspecific, small hiatal hernia. She is given 10 mg of hydralazine with improvement of her blood pressure from 200 systolic to 142. She is given Tylenol thousand milligrams p.o. for complaints of mild headache. I have reviewed her labs and CT findings with her and she reports that her pain has improved. She is stable and ready for discharged home. 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 She should continue her home medications as previously directed. She should continue to monitor her blood pressure record and bring to her outpatient follow-up appointment. Medical Records Medical records reviewed: Yes I reviewed the patient's medical records. Lab Data Lab results reviewed: Yes I reviewed the patient's lab results. Lab results narrative: Diabetes panel 11/09/19 Range/Units 19:55 Sodium 139 (136-145) mmol/L Potassium 4.2 (3.5-5.1) mmol/L Chloride 105 (98-107) mmol/L Carbon Dioxide 27.8 (21.0-32.0) mmol/L BUN 26 H (7-18) mg/dL Creatinine 1.10 H (0.55-1.02) mg/dL Glucose 120 H (74-106) mg/dL Calcium 9.4 (8.5-10.1) mg/dL AST 29 (15-37) U/L ALT 34 (14-59) U/L Alkaline Phosphatase 93 (46-116) U/L Total Protein 7.0 (6.4-8.2) g/dL Albumin 3.8 (3.4-5.0) g/dL Calcium panel 11/09/19 Range/Units 19:55 Calcium 9.4 (8.5-10.1) mg/dL Albumin 3.8 (3.4-5.0) g/dL Pituitary panel 11/09/19 Range/Units 19:55 Sodium 139 (136-145) mmol/L Potassium 4.2 (3.5-5.1) mmol/L Chloride 105 (98-107) mmol/L Carbon Dioxide 27.8 (21.0-32.0) mmol/L BUN 26 H (7-18) mg/dL Creatinine 1.10 H (0.55-1.02) mg/dL Glucose 120 H (74-106) mg/dL Calcium 9.4 (8.5-10.1) mg/dL Adrenal panel 11/09/19 Range/Units 19:55 Sodium 139 (136-145) mmol/L Potassium 4.2 (3.5-5.1) mmol/L Chloride 105 (98-107) mmol/L Carbon Dioxide 27.8 (21.0-32.0) mmol/L BUN 26 H (7-18) mg/dL Creatinine 1.10 H (0.55-1.02) mg/dL Glucose 120 H (74-106) mg/dL Calcium 9.4 (8.5-10.1) mg/dL Total Bilirubin 0.6 (0.2-1.0) mg/dL AST 29 (15-37) U/L ALT 34 (14-59) U/L Alkaline Phosphatase 93 (46-116) U/L Total Protein 7.0 (6.4-8.2) g/dL Albumin 3.8 (3.4-5.0) g/dL HPI General Date/Time Provider Initiated Documentation: 11/09/19 19:31 . Limitations to Documentation: no limitations . Information obtained by: patient . HPI Narrative: This is a 73-year-old female patient with generalized anxiety disorder hypertension who was seen in the emergency department yesterday for epigastric pain thought to be GI. She did have a troponin and serial troponin which were both negative she had no acute ST segment changes. Tonight she presents with left sided upper abdominal pain that occurred after eating dinner. She states the pain has been constant it is in the left upper quadrant it is worsened with palpation. She has had no nausea vomiting she has had no black or tarry stools she denies any change in her bowels. She is voiding without difficulty. She has had no fevers she has no nausea or vomiting. She is quite tearful and anxious on presentation. Her blood pressure is elevated at 200 systolic Related Data Home Medications Medication Instructions Recorded Confirmed cholecalciferol (vitamin D3) 50 2,000 unit PO DAILY 07/15/18 11/09/19 mcg (2,000 unit) capsule magnesium 500 mg PO DAILY 04/29/19 11/09/19 sertraline 100 mg tablet 100 mg PO DAILY #90 tab-cap 07/21/19 11/09/19 famotidine [Pepcid] 20 mg PO BID #60 tab 11/08/19 11/09/19 lisinopril 10 mg PO DAILY #30 tab 11/08/19 11/09/19 melatonin 10 mg PO DAILY 11/08/19 11/09/19 Previous Rx's Medication Instructions Recorded sertraline 100 mg tablet 100 mg PO DAILY #90 tab-cap 07/21/19 famotidine [Pepcid] 20 mg PO BID #60 tab 11/08/19 lisinopril 10 mg PO DAILY #30 tab 11/08/19 Allergies Allergy/AdvReac Type Severity Reaction Status Date / Time Sulfa (Sulfonamide Allergy Intermediate HIVES Verified 11/09/19 19:37 Antibiotics) aluminum Allergy Mild Verified 11/09/19 19:37 ZINC GLUCONATE Allergy Mild ITCHING Uncoded 11/09/19 19:37 General Stated Complaint: Abd Prob KAMI: 3 Review of Systems All systems reviewed & are unremarkable except as noted in HPI and below Constitutional Constitutional: Denies fever(s) and Denies headache(s) ENT Ears, Nose, Mouth, and Throat: Denies dysphagia, Denies dizziness and Denies headache(s) Cardiovascular Cardiovascular: Denies chest pain and Denies dyspnea Respiratory Respiratory: Denies cough and Denies dyspnea Gastrointestinal Gastrointestinal: Reports abdominal pain (Left upper quadrant), Denies cons tipation, Denies dysphagia, Reports heartburn, Denies diarrhea, Denies nausea and Denies vomiting Musculoskeletal Musculoskeletal: Denies myalgias Neurologic Neurologic: Denies dizziness and Denies headache(s) Psychiatric Psychiatric: Reports anxiety [facility] Medical History (Updated 11/09/19 @ 21:49 by Miranda Lopez NP) Bulimia nervosa (Resolved) Depressive disorder (Chronic) Essential hypertension (Chronic) Gastroesophageal reflux disease without esophagitis (Resolved) Generalized anxiety disorder (Chronic) Hereditary hemochromatosis (Chronic) 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 Father , 72 Hyperlipidemia Heart disease Hypertension Prostate cancer Myocardial infarction Sister Hyperlipidemia Depression Son Depression Daughter Mental disorder Substance abuse Depression Daughter Maria Luz-Danlos disease Depression Maternal Grandfather Myocardial infarction Heart disease Maternal Grandmother No problems noted. Paternal Grandfather Heart disease Myocardial infarction Paternal Grandmother Hypertension Hyperlipidemia Heart disease Type 2 diabetes mellitus Myocardial infarction Social History Smoking/Tobacco Use Status: Never Second Hand Exposure: Yes Alcohol Intake: current Alcohol Intake frequency: holidays/special occasions only Alcohol type: hard liquor Drug use: Never Substance use type: does not use Caregiver/Support person: No Household members: children and other Details: 3 granddaughters (16, 12 and 5) Housing: house Pets and animals: Yes Pets and animals: cat(s) and dog(s) Sexually active: No Do you think of yourself as: straight/heterosexual Current gender identity: female What is your relationship status?: How often do you talk on the phone with friends or family?: three or more times per week How often do you get together with friends or relatives?: once per week How often do you attend uatsdin or restorationist services?: 4 or more times per year Do you belong to any clubs or organized social groups?: decline to answer Panel score (0-1 are the most socially isolated patients): 2 What type of physical activity do you participate in: none Elly/Scientologist: Orthodox Special elly needs: No Seatbelt use: always Drive intox or ride w/intox front end driver: No Do you feel safe at home: Yes Do you feel safe in your relationship?: Yes Female Reproductive History Menstrual Menopause type: natural History History 3 Para 3 Hx # Term Pregnancies Multiple births Hx # Pregnancies Ectopic pregnancies AB induced Hx Number of Living Children 3 AB spontaneous Exam Const General: cooperative, healthy appearing and anxious Nutritional Appearance: obese Orientation: alert, awake and oriented x3 HENMT Head: normal to inspection, normocephalic and atraumatic Resp Effort & Inspection: normal respiratory effort Auscultation: clear to auscultation bilaterally Cardio Rate: regular rate Rhythm: regular rhythm GI Inspection: normal to inspection and obesity Palpation: soft, not firm, no guarding, no hernias, no masses, not rigid and tender in the LUQ Auscultation: normal bowel sounds Skin General skin exam: no rashes or lesions noted Neuro General: patient alert, patient awake and patient oriented x3 Extrem General: normal to inspection and full ROM Course Vital Signs Vital signs: Vital Signs Temperature 36.5 C 11/09/19 19:33 Pulse 67 11/09/19 19:33 Respiratory Rate 16 11/09/19 19:33 Blood Pressure 201/71 H 11/09/19 19:33 Pulse Oximetry 96 11/09/19 19:33 Temperature 36.5 C 11/09/19 19:33 Temperature Source Skin 11/09/19 19:33 Pulse 75 11/09/19 21:15 Respiratory Rate 16 11/09/19 19:33 Respiratory Effort 11/09/19 19:38 Blood Pressure 149/61 H 11/09/19 21:15 Blood Pressure Mean 84 11/09/19 21:15 Pulse Oximetry 92 L 11/09/19 21:15 Pain Level 6 11/09/19 19:33 Lab/Test Results Lab/Test Results: Laboratory Tests Range/Units 11/09/19 11/09/19 19:55 19:55 WBC (4.4-10.8) 10^3/uL 8.65 RBC (3.93-5.22) 10^6/uL 4.54 Hgb (11.2-15.7) g/dL 14.9 Hct (36.0-46.0) % 43.5 MCV (80-95) fL 95.8 H MCH (27.0-33.0) pg 32.8 MCHC (32.0-36.0) % 34.3 RDW (11.7-14.6) % 11.6 L Plt Count (130-400) 10^3/uL 225 MPV (8.0-11.0) fL 9.6 Immature Gran % 0.2 Neutrophils % 60.3 Lymphocytes % 26.8 Monocytes % 8.6 Eosinophils % 3.5 Basophils % 0.6 Nucleated RBC % % 0 Absolute Neutrophils (1.2-6.7) 10^3/uL 5.22 Absolute Lymphocytes (1.2-3.4) 10^3/uL 2.32 Absolute Monocytes (0.1-0.8) 10^3/uL 0.74 Absolute Eosinophils (0.0-0.7) 10^3/uL 0.30 Absolute Basophils (0.0-0.2) 10^3/uL 0.05 Sodium (136-145) mmol/L 139 Potassium (3.5-5.1) mmol/L 4.2 Chloride (98-107) mmol/L 105 Carbon Dioxide (21.0-32.0) mmol/L 27.8 Anion Gap (3-11) mmol/L 6.2 BUN (7-18) mg/dL 26 H Creatinine (0.55-1.02) mg/dL 1.10 H Estimated GFR/1.73 m2 (mL/min/1.73m2) 48.96 Glucose (74-106) mg/dL 120 H Calcium (8.5-10.1) mg/dL 9.4 Total Bilirubin (0.2-1.0) mg/dL 0.6 AST (15-37) U/L 29 ALT (14-59) U/L 34 Alkaline Phosphatase (46-116) U/L 93 Total Protein (6.4-8.2) g/dL 7.0 Albumin (3.4-5.0) g/dL 3.8 Lipase (73-393) U/L 97
[2019-11-09] MEDS: Acetaminophen 500 MG TAB 1000 MG PO (21:53)
== END 2019-11-09 22:30 | disposition home or self-care (01) ==
PROVIDERS: Emergency Provider Nurse Practitioner Acute Care; PCP Nurse Practitioner Family
DX: R10.12 Left upper quadrant pain (principal); R93.5 Abnormal findings on diagnostic imaging of other abdominal regions, including retroperitoneum; F41.1 Generalized anxiety disorder; I10 Essential (primary) hypertension
CPT/HCPCS: 36415; 80053; 83690; 96374; 99285; 74177; 85025; 99284; J0360; J3490

== ENCOUNTER 2019-11-13 02:13 | Outpatient (CLI) | payer MEDICARE, BC, SELFPAY ==
--- NOTE | 2019-11-13 13:30 | DI.MRI_ITS ---
EXAM: MR LOWER EXTREMITY RT WO/W CLINICAL HISTORY: evaluate lower leg mass, R22.41. TECHNIQUE: Multiplanar multisequence MRI was performed. 20 milliliters of Dotarem were administered IV. COMPARISON: CR XR TIB/FIB RT from 10/14/2019 FINDINGS: No mass is visible. There is abundant subcutaneous fat. There is no discrete lipoma visible. Ther e is mild edema seen anterior to the distal patellar tendon near the tibial tubercle.. The patellar tendon appears intact. The marrow signal is normal. The menisci, cruciate and collateral ligaments are grossly intact. No muscle edema or muscle mass is seen. There is no popliteal cyst. IMPRESSION: Mild edema anterior to the inferior patellar tendon. No evidence of mass. DATA REPOSITORY:
[2019-11-13 14:29] LABS: CREATININE 1.04 mg/dL (0.55-1.02); Estimated GFR 52.24 (mL/min/1.73m2)
[2019-11-13 14:40] LABS: Hemoglobin A1C 5.5 % (<5.7)
[2019-11-13] MEDS: Normal Saline Flush 10 ML SYR IVP (15:00)
[2019-11-13] MEDS: Gadoterate meglumine 20 ML VIAL IVP (15:01)
[2019-11-13 15:45] LABS: Total Iron Binding Capacity 224 ug/dL (250-450)
[2019-11-13 15:59] LABS: Ferritin 321 ng/mL (8-252)
== END 2019-11-13 02:33 ==
PROVIDERS: PCP Nurse Practitioner Family; Visit Provider Orthopaedic Surgery
DX: R60.0 Localized edema
CPT/HCPCS: 73720; 82565; 82575; 82728; 83036; 83540; 83550

== ENCOUNTER → 2019-11-18 10:57 | Outpatient (BNVA) | payer MEDICARE, BC, SELFPAY | PROVIDERS: PCP Nurse Practitioner Family; Referring Provider Nurse Practitioner Family; Visit Provider Orthopaedic Surgery | DX: S84.11XA Injury of peroneal nerve at lower leg level, right leg, initial encounter (principal); X58.XXXA Exposure to other specified factors, initial encounter; I10 Essential (primary) hypertension | CPT/HCPCS: 99213 ==

== ENCOUNTER 2019-11-25 00:31 | Outpatient (CLI) | payer MEDICARE, BC, SELFPAY ==
--- NOTE | 2019-11-25 06:45 | DI.US_ITS ---
EXAM: US PELVIS TRANSVAGINAL CLINICAL HISTORY: Endometrial thickening vs fluid on CT scan,F/U ABNL CT,R93.5. TECHNIQUE: Transabdominal and transvaginal pelvic ultrasound was performed using standard protocol. COMPARISON: CT CT ABDOMEN PELVIS W from 11/09/2019 FINDINGS: KIDNEYS: Kidneys are symmetric in size. No evidence of renal calculi. No evidence of hydronephrosis. There is a cyst seen on the left kidney. This is present on the CT scan from 11/09/2019. UTERUS: Position: Anteverted. Size: 9.7 long by 4.2 AP by 4.6 transverse cm Endometrium: The endometrial canal is distended with fluid. There is a 3 x 1.7 x 2.4 cm lobulated ma ss along the posterior endometrium extending into the endometrial cavity. Normal for patient's menst rual status. Myometrium: Unremarkable. Cervix: There is a 0.5 x 0.4 x 0.5 cm round echogenic mass protruding into the cervical canal. OVARIES: Right: 1.9 x 1.4 x 1.4 cm Cyst or mass: None. Left: Not visualized transabdominally or transvaginally. No left adnexal mass is seen. CUL-DE-SAC: Free fluid: None. Other: None. IMPRESSION: 1. Known left renal cyst. 2. 3 x 1.7 x 2.4 cm mass arising from the posterior endometrium and projecting into the endometrial c anal and surrounded by fluid. Neoplasm should be excluded in this patient. 3. 0.5 x 0.4 x 0.5 cm round mass protruding into the cervical canal. This may represent a polyp. Ne oplasm cannot be entirely excluded. 4. Gynecologic consult is recommended for further evaluation. 5. Findings were discussed with Dr. Eyal Morris on the date of the examination. DATA REPOSITORY:
== END 2019-11-25 00:51 ==
PROVIDERS: PCP Nurse Practitioner Family; Visit Provider Nurse Practitioner Family
DX: N28.1 Cyst of kidney, acquired (principal); R93.5 Abnormal findings on diagnostic imaging of other abdominal regions, including retroperitoneum
CPT/HCPCS: 76830; 76856

== ENCOUNTER 2019-12-01 13:14 | Outpatient (REF) | payer MEDICARE, BC, SELFPAY ==
[2019-12-01 13:49] LABS: Anion Gap 8.4 mmol/L (3-11); BUN 23 mg/dL (7-18); CO2 26.6 mmol/L (21.0-32.0); Calcium 9.4 mg/dL (8.5-10.1); Chloride 105 mmol/L (98-107); Estimated GFR 48.96 (mL/min/1.73m2); Glucose 95 mg/dL (74-106); Potassium 4.7 mmol/L (3.5-5.1); Sodium 140 mmol/L (136-145)
== END 2019-12-01 13:34 ==
LOC: LBN 13:14
PROVIDERS: PCP Nurse Practitioner Family; Visit Provider Nurse Practitioner Family
DX: I10 Essential (primary) hypertension (principal)
CPT/HCPCS: 80048

== ENCOUNTER 2019-12-05 03:02 | Outpatient (CLI) | payer MEDICARE, BC, SELFPAY ==
[2019-12-05 10:52] LABS: HCT 43.7 % (36.0-46.0); HGB 14.5 g/dL (11.2-15.7); MCH 32.7 pg (27.0-33.0); MCHC 33.2 % (32.0-36.0); MCV 98.4 fL (80-95); MPV 10.1 fL (8.0-11.0); Platelet Count 225 10^3/uL (130-400); RBC 4.44 10^6/uL (3.93-5.22); RDW 11.7 % (11.7-14.6); RDW-SD 42.5 fL; WBC 6.08 10^3/uL (4.4-10.8)
[2019-12-06 21:13] LABS: COVID-19 RT-PCR Result NEGATIVE (Negative)
== END 2019-12-05 03:22 ==
PROVIDERS: PCP Nurse Practitioner Family; Visit Provider Obstetrics & Gynecology
DX: N85.8 Other specified noninflammatory disorders of uterus (principal); Z11.59 Encounter for screening for other viral diseases; Z01.818 Encounter for other preprocedural examination; Z01.812 Encounter for preprocedural laboratory examination
CPT/HCPCS: 36415; 85027; 86850; 86900; 86901; U0003

== ENCOUNTER 2019-12-10 07:39 | Day surgery (SDC) | payer MEDICARE, BC, SELFPAY ==
[2019-12-10] VITALS (7 sets, daily range): BP systolic 116–141; BP diastolic 42–63; PULSE 57–66; RESP 10–16; TEMP 35.9–36.5; O2SAT 93–96
[2019-12-10] MEDS: Lactated Ringers 1,000 ML 125 ML IV (08:30)
--- NOTE | 2019-12-10 10:00 | ENDO_PTH ---
PATIENT: Hilda Joshi LOC: [facility] U#:[id number] AGE/SX: 74/F ROOM: RE12/10/[address]: Cinthia Rivera DO : 1945 BED: DIS: 12/10/2019 SPEC #: [id number] RECD: 12/10/19 12:44 STATUS: JUSTIN REQ #: [id number] CHANTE: 12/10/19 10:[address]: Cinthia Rivera DEPT: Surgical Specimen RECD BY: Amalia Evans ENTERED: 12/10/19 12:45 SP TYPE: Endo OTHR DR: JUAN Soto Tissues: 1 - ENDOCERVICAL BX/CURRETTE 2 - ENDOMETRIUM BX/CURRETTE Procedures: GROSS AND MICRO LEVEL 4 Comments: [id number]
--- NOTE | 2019-12-10 10:16 | W.PM.OP ---
Date of service: 12/10/19 Time of Service: 10:16 Operative Note Operative Note DATE OF PROCEDURE: 12/10/19 PRE-OP DIAGNOSIS: Endometrial fluid collection. Posterior endometrial lesion POST-OP DIAGNOSIS: same PROCEDURE: Hysteroscopy with Dilation and Curettage SURGEON: Cinthia Rivera ANESTHESIA: MAC ESTIMATED BLOOD LOSS: 10 PATHOLOGY: other (1) endocervical curettage 2) endometrial curettage ) COMPLICATIONS: None Patient was transported to: PACU Patient's condition: stable Indications: Endometrial fluid collection with posterior endometrial wall lesion Findings: Cervical stenosis, thickened posterior endometrial wall with vascular lesion at the posterior surface. Remainder Procedure Description: Patient 72-year-old female with incidental finding of endometrial fluid collection and posterior uterine lesion. In light of this fact, the risks benefits alternatives of hysteroscopy with dilation and curettage were explained to the patient in full informed consent was obtained. She is taken the operating suite with IV running where she is placed in dorsal supine position and anesthesia administered. She is then placed in the modified dorsal lithotomy position in stirrups and prepped and draped in usual sterile fashion. Her bladder was drained for approximately 1 cc of clear yellow urine. She did pneumatic compression stockings placed. At this point speculum was placed in the posterior vaginal vault and the anterior and posterior lip of the cervix was grasped with single-tooth tenaculum each. Cervical loss hysteroscope could be passed with ease. With instillation of normal saline the endometrial cavity was dilated and anterior superior surfaces of the endometrium were smooth and regular. Posterior surface of the endometrium was noted thickened, vascular, white lesion covering one quarter of the posterior surface of the endometrium. At this point hysteroscope was removed and endocervical curetting performed followed by endometrial curetting for moderate tissue. After completion of dilation and curettage weighted speculum and single-tooth tenaculum was removed tenaculum sites were hemostatic. Patient was returned to dorsal supine position and awoke from anesthesia with ease. She was taken to the postoperative anesthesia care unit in stable condition. Sponge and counts were correct x2. EBL 10 mL's Complications: None apparent Findings: As above
[2019-12-10] MEDS: fentaNYL 100 MCG/2 ML VIAL IVP (10:30)
[2019-12-10] MEDS: Acetaminophen 325 MG TAB 650 MG PO (11:50)
[2019-12-10] MEDS: Ibuprofen 600 MG TAB PO (11:50)
== END 2019-12-10 12:16 | disposition home or self-care (01) ==
PROVIDERS: PCP Nurse Practitioner Family; Visit Provider Obstetrics & Gynecology
PROC: 0UDB8ZZ Extraction of Endometrium, Via Natural or Artificial Opening Endoscopic (ICD-10-PCS; CPT 58558; principal; 2019-12-10 09:00)
DX: C54.1 Malignant neoplasm of endometrium (principal); R93.89 Abnormal findings on diagnostic imaging of other specified body structures; I10 Essential (primary) hypertension; F32.9 Major depressive disorder, single episode, unspecified; F41.1 Generalized anxiety disorder; E78.5 Hyperlipidemia, unspecified
CPT/HCPCS: 58558; 88305; J1100; J1885; J2001; J2405; J3010

== ENCOUNTER → 2019-12-16 10:17 | Outpatient (BNVA) | payer MEDICARE, BC, SELFPAY | PROVIDERS: PCP Nurse Practitioner Family; Referring Provider Nurse Practitioner Family; Visit Provider Orthopaedic Surgery | DX: S84.1 Injury of peroneal nerve at lower leg level (principal); X58.XXXD Exposure to other specified factors, subsequent encounter; I10 Essential (primary) hypertension | CPT/HCPCS: 99213 ==

== ENCOUNTER → 2020-02-04 09:29 | Outpatient (BNVA) | payer MEDICARE, BC, SELFPAY | PROVIDERS: PCP Nurse Practitioner Family; Referring Provider Nurse Practitioner Family; Visit Provider Orthopaedic Surgery | DX: S84.10XD Injury of peroneal nerve at lower leg level, unspecified leg, subsequent encounter (principal); X58.XXXD Exposure to other specified factors, subsequent encounter; I10 Essential (primary) hypertension | CPT/HCPCS: 99213 ==

== ENCOUNTER 2020-07-01 02:09 | Outpatient (CLI) | payer MEDICARE, BC, SELFPAY ==
--- NOTE | 2020-07-01 06:45 | DI.MAMMO_ITS ---
EXAM: MG MAMMO SCREENING CLINICAL HISTORY: screening,z12.39. TECHNIQUE: Bilateral full field digital CC and MLO mammographic images were obtained with 3D tomosyn thesis and utilizing computer aided detection (CAD). COMPARISON: Prior mammograms dating back to 2011, the most recent being July 2017. FINDINGS: There are no CAD designations. There are no new spiculated masses nor malignant appearing microcalcification groups. There is no significant architectural distortion nor skin thickening-retraction. IMPRESSION: No radiographic evidence of malignancy. BI-RADS Category 1 - Negative Breast Density - Category A - Almost entirely fatty Breast density Category C or D implies that the patient has dense breast tissue. Dense breast tissue can make it harder to find cancer on a mammogram. Dense breast tissue is also associated with an incr eased risk of breast cancer. This information about the result of the mammogram report was provided to the patient to raise their awareness. Use this report when you speak with the patient about their risks for breast cancer, which includes their family history. At that time, you may recommend additional screening tests (Ultrasoun d or MRI) as these tests may add significant information. A negative radiographic report should not delay biopsy if a dominant or clinically suspicious mass is present. Up to ten percent of cancers are not identified on mammography. A negative report may reinforce clinical impression. Adenosis and dense breasts may obscure an underlying neoplasm. False positive reports average 6 to 10%. Patient will receive a letter notifying them of these results.
[2020-07-01 10:11] LABS: ALT 30 U/L (14-59); AST 17 U/L (15-37); Alkaline Phosphatase 127 U/L (46-116); BUN 25 mg/dL (7-18); Bilirubin, Total 0.6 mg/dL (0.2-1.0); CREATININE 1.1 mg/dL (0.55-1.02); Calcium 9.5 mg/dL (8.5-10.1); Calculated LDL 134 mg/dL (<100); Chloride 108 mmol/L (98-107); Cholesterol 196 mg/dL (<200); Estimated GFR 48.82 (mL/min/1.73m2); Ferritin 306 ng/mL (8-252); Glucose 100 mg/dL (74-106); HDL Cholesterol 49 mg/dL (40-60); Potassium 4.9 mmol/L (3.5-5.1); Sodium 144 mmol/L (136-145); Total Protein 7.3 g/dL (6.4-8.2); Triglyceride 65 mg/dL (<150)
== END 2020-07-01 02:10 | disposition home or self-care (01) ==
PROVIDERS: PCP Nurse Practitioner Family; Visit Provider Nurse Practitioner Family
DX: Z12.31 Encounter for screening mammogram for malignant neoplasm of breast (principal); E78.5 Hyperlipidemia, unspecified; E83.110 Hereditary hemochromatosis
CPT/HCPCS: 36415; 77063; 77067; 80053; 80061; 82728

== ENCOUNTER 2020-07-30 01:46 | Outpatient (CLI) | payer MEDICARE, BC, SELFPAY ==
[2020-07-30 12:49] LABS: Abs Immature Grans 0.02 10^3/uL (0.0-0.06); Absolute Basophil Count 0.04 10^3/uL (0.0-0.2); Absolute Eosinophil Count 0.18 10^3/uL (0.0-0.7); Absolute Lymphocyte Count 1.67 10^3/uL (1.2-3.4); Absolute Monocyte Count 0.37 10^3/uL (0.1-0.8); Absolute Neutrophil Count 3.44 10^3/uL (1.2-6.7); Basophils % 0.7; Eosinophils % 3.1; HCT 42.8 % (36.0-46.0); HGB 14.6 g/dL (11.2-15.7); Immature Grans % 0.3; Lymphocytes % 29.2; MCH 33.3 pg (27.0-33.0); MCHC 34.1 % (32.0-36.0); MCV 97.5 fL (80-95); MPV 9.9 fL (8.0-11.0); Monocytes % 6.5; Neutrophils % 60.2; Nucleated RBC 0 %; Platelet Count 219 10^3/uL (130-400); RBC 4.39 10^6/uL (3.93-5.22); RDW 11.9 % (11.7-14.6); RDW-SD 42.9 fL; WBC 5.72 10^3/uL (4.4-10.8)
[2020-07-30 13:56] LABS: ALT 26 U/L (14-59); AST 16 U/L (15-37); Albumin 3.9 g/dL (3.4-5.0); Alkaline Phosphatase 108 U/L (46-116); Anion Gap 5.7 mmol/L (3-11); BUN 26 mg/dL (7-18); Bilirubin, Total 0.6 mg/dL (0.2-1.0); CO2 30.3 mmol/L (21.0-32.0); CREATININE 1.1 mg/dL (0.55-1.02); Calcium 9.6 mg/dL (8.5-10.1); Chloride 108 mmol/L (98-107); Estimated GFR 48.82 (mL/min/1.73m2); Ferritin 259 ng/mL (8-252); Glucose 93 mg/dL (74-106); Sodium 144 mmol/L (136-145)
== END 2020-07-30 01:47 | disposition home or self-care (01) ==
LOC: LOS 01:46
PROVIDERS: PCP Nurse Practitioner Family; Visit Provider Nurse Practitioner Family
DX: E83.110 Hereditary hemochromatosis (principal)
CPT/HCPCS: 36415; 80053; 82728; 85025

== ENCOUNTER 2020-08-12 02:48 | Outpatient (CLI) | payer MEDICARE, BC, SELFPAY ==
[2020-08-12 08:50] LABS: HCT 38.9 % (36.0-46.0); HGB 13.1 g/dL (11.2-15.7); MCH 33.1 pg (27.0-33.0); MCHC 33.7 % (32.0-36.0); MCV 98.2 fL (80-95); MPV 9.5 fL (8.0-11.0); Platelet Count 213 10^3/uL (130-400); RBC 3.96 10^6/uL (3.93-5.22); RDW 11.9 % (11.7-14.6); RDW-SD 42.6 fL; WBC 5.87 10^3/uL (4.4-10.8)
[2020-08-12 11:31] LABS: Ferritin 207 ng/mL (8-252)
[2020-08-12 11:42] LABS: Total Iron Binding Capacity 194 ug/dL (250-450)
== END 2020-08-12 02:49 | disposition home or self-care (01) ==
LOC: LBO 02:48
PROVIDERS: PCP Nurse Practitioner Family; Visit Provider Nurse Practitioner Family
DX: E83.110 Hereditary hemochromatosis (principal)
CPT/HCPCS: 36415; 85027; 82728; 83550

== ENCOUNTER 2020-08-20 02:21 | Outpatient (RCR) | payer MEDICARE, BC, SELFPAY ==
[2020-08-13] MEDS: Normal Saline Flush 10 ML SYR IVP (08:43)
[2020-08-20 14:01] LABS: HCT 41.2 % (36.0-46.0); HGB 13.8 g/dL (11.2-15.7); MCH 32.3 pg (27.0-33.0); MCHC 33.5 % (32.0-36.0); MCV 96.5 fL (80-95); MPV 9.5 fL (8.0-11.0); Platelet Count 225 10^3/uL (130-400); RBC 4.27 10^6/uL (3.93-5.22); RDW 12.1 % (11.7-14.6); RDW-SD 42.7 fL
[2020-08-20] MEDS: Normal Saline Flush 10 ML SYR IVP (14:26)
[2020-08-20 14:27] LABS: ALT 28 U/L (14-59); AST 18 U/L (15-37); Albumin 3.9 g/dL (3.4-5.0); Alkaline Phosphatase 115 U/L (46-116); Anion Gap 7.9 mmol/L (3-11); BUN 24 mg/dL (7-18); Bilirubin, Total 0.7 mg/dL (0.2-1.0); CO2 27.1 mmol/L (21.0-32.0); CREATININE 0.9 mg/dL (0.55-1.02); Calcium 9.1 mg/dL (8.5-10.1); Chloride 105 mmol/L (98-107); Ferritin 177 ng/mL (8-252); Glucose 111 mg/dL (74-106); Potassium 4.2 mmol/L (3.5-5.1); Sodium 140 mmol/L (136-145); Total Protein 7.4 g/dL (6.4-8.2)
== END 2020-09-01 23:59 | disposition home or self-care (01) ==
LOC: INF 02:21
PROVIDERS: PCP Nurse Practitioner Family; Visit Provider Nurse Practitioner Family
DX: E83.118 Other hemochromatosis (principal)
CPT/HCPCS: 36415; 80053; 85027; 99195; 82728

== ENCOUNTER 2020-09-28 03:44 | Outpatient (CLI) | payer MEDICARE, BC, SELFPAY ==
[2020-09-28 08:04] LABS: Abs Immature Grans 0.02 10^3/uL (0.0-0.06); Absolute Basophil Count 0.04 10^3/uL (0.0-0.2); Absolute Monocyte Count 0.47 10^3/uL (0.1-0.8); Absolute Neutrophil Count 2.87 10^3/uL (1.2-6.7); Basophils % 0.7; Eosinophils % 3.7; HCT 42.7 % (36.0-46.0); HGB 14.1 g/dL (11.2-15.7); Immature Grans % 0.4; Lymphocytes % 33.3; MCH 32.9 pg (27.0-33.0); MCV 99.5 fL (80-95); MPV 9.3 fL (8.0-11.0); Monocytes % 8.7; Neutrophils % 53.2; Nucleated RBC 0 %; Platelet Count 215 10^3/uL (130-400); RBC 4.29 10^6/uL (3.93-5.22); RDW 11.5 % (11.7-14.6); RDW-SD 42.3 fL
[2020-09-28 08:24] LABS: ALT 19 U/L (14-59); AST 16 U/L (15-37); Albumin 3.5 g/dL (3.4-5.0); Alkaline Phosphatase 97 U/L (46-116); Anion Gap 4.3 mmol/L (3-11); BUN 21 mg/dL (7-18); Bilirubin, Total 0.4 mg/dL (0.2-1.0); CO2 32.7 mmol/L (21.0-32.0); CREATININE 1.1 mg/dL (0.55-1.02); Calcium 9.3 mg/dL (8.5-10.1); Chloride 109 mmol/L (98-107); Estimated GFR 48.82 (mL/min/1.73m2); Ferritin 114 ng/mL (8-252); Glucose 99 mg/dL (74-106); Potassium 4.2 mmol/L (3.5-5.1); Sodium 146 mmol/L (136-145); Total Protein 6.9 g/dL (6.4-8.2)
== END 2020-09-28 03:45 | disposition home or self-care (01) ==
LOC: LBO 03:44
PROVIDERS: PCP Nurse Practitioner Family; Visit Provider Nurse Practitioner Family
DX: E83.110 Hereditary hemochromatosis (principal)
CPT/HCPCS: 36415; 80053; 99195; 82728; 85025

== ENCOUNTER 2020-09-28 10:16 | Outpatient (RCR) | payer MEDICARE, BC, SELFPAY | END 2020-10-02 23:59 | disposition home or self-care (01) | LOC: INF 10:16 | PROVIDERS: PCP Nurse Practitioner Family; Visit Provider Nurse Practitioner Family | DX: E83.110 Hereditary hemochromatosis (principal) | CPT/HCPCS: 99195 ==

== ENCOUNTER 2020-10-06 01:38 | Outpatient (CLI) | payer MEDICARE, BC, SELFPAY ==
--- NOTE | 2020-10-06 08:30 | DI.DEXA_ITS ---
Exam(s) XR DEXA BONE DENSITY W/WO JADE EXAM: XR DEXA BONE DENSITY W/WO JADE CLINICAL HISTORY: Osteopenia,M85.89 TECHNIQUE: Routine DEXA evaluation of the lumbar spine, hip, or forearm. COMPARISON: July 2017 DEXA scan FINDINGS: Performed on a [employer] unit. Lateral image: No compression fracture evident. Lumbar Spine total T-score: -1.8. Prior 2018 reading was -2.3 Hip total T-score:-1.3. Prior 2018 reading was -1.2. Independent reading at the femoral neck yields a T-score of -2.1 Forearm total T-score: -1.3 IMPRESSION: Bone mineral density measures in the osteopenia range. Fracture risk is moderate. Note: Any spine fracture indicates 5x risk for subsequent spine fracture and 2x risk for subsequent h ip fracture. World Health Organization criteria for BMD interpretation classify patients: Normal...... T- Score at or above -1.0 Osteopenic... T- Score between -1.0 and -2.5 Osteoporosis... T-Score at or below -2.5
== END 2020-10-06 01:58 ==
PROVIDERS: PCP Nurse Practitioner Family; Visit Provider Nurse Practitioner Family
DX: M85.89 Other specified disorders of bone density and structure, multiple sites (principal)
CPT/HCPCS: 77080

== ENCOUNTER 2020-11-01 03:58 | Outpatient (CLI) | payer MEDICARE, BC, SELFPAY ==
[2020-11-01 08:14] LABS: HCT 42.5 % (36.0-46.0); HGB 14.2 g/dL (11.2-15.7); MCH 32.6 pg (27.0-33.0); MCHC 33.4 % (32.0-36.0); MCV 97.5 fL (80-95); MPV 9.4 fL (8.0-11.0); Platelet Count 220 10^3/uL (130-400); RBC 4.36 10^6/uL (3.93-5.22); RDW 11.3 % (11.7-14.6); RDW-SD 41.1 fL; WBC 5.64 10^3/uL (4.4-10.8)
[2020-11-01 08:35] LABS: ALT 26 U/L (14-59); AST 16 U/L (15-37); Albumin 3.6 g/dL (3.4-5.0); Alkaline Phosphatase 121 U/L (46-116); Anion Gap 7.8 mmol/L (3-11); BUN 26 mg/dL (7-18); Bilirubin, Total 0.3 mg/dL (0.2-1.0); CO2 29.2 mmol/L (21.0-32.0); Calcium 8.9 mg/dL (8.5-10.1); Chloride 108 mmol/L (98-107); Ferritin 105 ng/mL (8-252); Glucose 104 mg/dL (74-106); Potassium 4.5 mmol/L (3.5-5.1); Sodium 145 mmol/L (136-145)
== END 2020-11-01 03:59 | disposition home or self-care (01) ==
LOC: LBO 03:58
PROVIDERS: PCP Nurse Practitioner Family; Visit Provider Nurse Practitioner Family
DX: E83.110 Hereditary hemochromatosis (principal)
CPT/HCPCS: 36415; 80053; 85027; 82728; 85025

== ENCOUNTER 2020-11-04 03:02 | Outpatient (RCR) | payer MEDICARE, BC, SELFPAY | END 2020-12-02 23:59 | disposition home or self-care (01) | LOC: INF 03:02 | PROVIDERS: PCP Nurse Practitioner Family; Visit Provider Nurse Practitioner Family | DX: E83.110 Hereditary hemochromatosis (principal) | CPT/HCPCS: 99195 ==

== ENCOUNTER → 2020-11-04 10:54 | Outpatient (BNVA) | payer MEDICARE, BC, SELFPAY | PROVIDERS: PCP Nurse Practitioner Family; Referring Provider Nurse Practitioner Family; Visit Provider Physical Therapy Assistant | DX: Z12.11 Encounter for screening for malignant neoplasm of colon (principal); I10 Essential (primary) hypertension ==

== ENCOUNTER 2020-11-12 03:22 | Outpatient (CLI) | payer MEDICARE, BC, SELFPAY ==
[2020-11-12 11:59] LABS: Source Nasal/Nares
[2020-11-12 17:48] LABS: COVID-19 PCR Negative (Negative)
== END 2020-11-12 03:23 | disposition home or self-care (01) ==
LOC: LBO 03:22
PROVIDERS: PCP Nurse Practitioner Family; Visit Provider Surgery
DX: Z20.822 Contact with and (suspected) exposure to COVID-19 (principal); Z01.818 Encounter for other preprocedural examination
CPT/HCPCS: 87635

== ENCOUNTER 2020-11-15 09:13 | Day surgery (SDC) | payer MEDICARE, BC, SELFPAY ==
--- NOTE | 2020-11-15 06:47 | W.COLOREPORT ---
Colonoscopy Report Date of procedure: 11/15/20 Pre-op diagnosis general: Colon cancer Screening Post-op diagnosis procedure note: same Procedure: Colonoscopy Surgeon: Gloria Fields Anesthesia Type: General:No Airway (Jarad Holt CRNA) Estimated blood loss (mL): 0 Pathology: none sent Complications: None Disposition: same day Indications: The patient is here for Colonoscopy pre-op. Her last screening was in 2008 and was unremarkable. She has no family history of colon cancer. She has not had any bowel habit changes. -Discussed colonoscopy bowel prep as well as the procedure. Discussed possible complications of the procedure to include bleeding, pain, perforation, missed small lesion/polyp, sore throat, aspiration and adverse reaction to the medications. Questions were answered to patient?s satisfaction. No guarantees were implied or given. Prep: Miralax/Dulcolax Procedure Start Time: 10:40 Procedure End Time: 10:58 Retraction Time: 9 minutes Findings: Normal colon Procedure Description: After informed consent was obtained the patient was taken to the procedure room and placed in a left decubitous position. Monitors were applied and a time out was done. The patients name, date of , procedure, allergies to medications and metal in their body was reviewed. The patient was then sedated. Once sedated and comfortable a rectal exam was done. External exam was normal. Internal exam revealed a normal sphincter tone and no palpable masses. The scope was then introduced and retro-flexed. No internal hemorrhoids, polyps or masses were identified on retro-flexion. The scope was then advanced to the cecum without difficulty. The ileocecal vlave and appendiceal orifice were identified. The prep was good. The scope was then slowly retracted over 9 minutes back into the rectum. There were no polyps and no diverticulosis noted. The scope was removed and the patient was woken up and taken back to Same day surgery in stable condition. The patient tolerated the procedure well and there were no immediate complications. Follow up: The patient should follow up as needed, unless they develop changes in bowel habits or other new gastrointestinal complaints.
--- NOTE | 2020-11-15 06:48 | W.PM.DSUDISC ---
Discharge Plan Disposition Patient Disposition: HOME Condition: Good Discharge Details Reason For Visit: Colonoscopy Attending Provider: Gloria Fields Primary Care Provider: Angy Jacob Home Meds and New Rx's Prescriptions: Continued cholecalciferol (vitamin D3) 50 mcg (2,000 unit) capsule 2,000 unit PO DAILY Qty: 90 RF: 4 Shingrix (PF) 50 mcg/0.5 mL suspension for reconstitution 0.5 ml IM ONCE Qty: 1 RF: 0 losartan 50 mg tablet 50 mg PO DAILY Qty: 90 RF: 4 nystatin 100,000 unit/gram powder 1 applic Topical BID PRN (Reason: dermatitis) Qty: 60 RF: 4 sertraline 100 mg tablet 100 mg PO DAILY Qty: 90 RF: 4 ibuprofen [IBU] 600 mg tablet 600 mg PO Q8H PRNQty: 20 RF: 0 Discontinued bisacodyl [Dulcolax (bisacodyl)] 5 mg tablet,delayed release (DR/EC) 5 mg PO ONCE Qty: 4 RF: 0 polyethylene glycol 3350 17 gram/dose powder 238 g PO ONCE Qty: 238 RF: 0 Discharge Instructions Additional Instructions: Findings: Normal Follow up: as needed Please call if you develop: fevers >101.5 Nausea or Vomiting Abdominal pain that is not transient Rectal bleeding that is more then a tbsp A hard abdomen and inability to pass gas DAY SURGERY UNIT POST ENDOSCOPY INSTRUCTIONS Instructions for everyone who is given Anesthesia: For your safety, please do the following for the next 24 Hours: a. Do not drive or operate dangerous equipment b. Do not drink alcohol beverages or use any recreational drugs for the first 24 hours or while taking pain medications. The medications in your body may have a reaction that can be dangerous. c. Do not make any important decisions or sign any important papers 1. Generally there are no restrictions on your activity after a day or so has gone by, but you may feel a bit fatigued for a few days. 2. After you arrive home you may have a light meal and return to a normal diet as you can tolerate it without feeling sick to your stomach. 3. After surgery, you may feel pain or discomfort. This should be only transient, but if it persists please contact your doctor. 4. If there are any questions regarding the findings of your procedure, please feel free to contact your doctor. 6. If you are unable to contact your doctor with a problem, contact the hospital at [phone]. 7. Continue all your regular medications unless directed otherwise. I understand the above instructions and have no questions. Signature of Patient or Responsible Adult Escort Date/Time Name of Responsible Adult Escort Signature of Nurse Date/Time Activity:: Activity as Tolerated Diet:: As Tolerated Discharge Orders Discharge Orders: Discharge Order (Routine); Ordered 11/15/20 Ordered By: Gloria Fields
[2020-11-15 09:20] VITALS: BP 144/75; PULSE 63; RESP 18; TEMP 36.1; O2SAT 98
--- NOTE | 2020-11-15 09:43 | ANES.PREOP_ITS ---
General Info Date of Service Date Performed: 11/15/20 Height: 5 ft Weight: 93.1 kg Body Mass Index (BMI): 40.1 Surgical Procedure: Operation Date: 11/15/20 10:50 Proposed Procedures Side Surgeon p Colonoscopy Gloria Fields MD Meds Allergies and Home Medications Allergies Allergy/AdvReac Type Severity Reaction Status Date / Time Sulfa (Sulfonamide Allergy Intermediate HIVES Verified 11/15/20 09:34 Antibiotics) aluminum Allergy Mild Verified 11/15/20 09:34 lisinopril AdvReac Mild Cough Verified 11/15/20 09:34 ZINC GLUCONATE Allergy Mild ITCHING Uncoded 11/15/20 09:34 Home Medication Medication Instructions Recorded cholecalciferol (vitamin D3) 50 2,000 unit PO DAILY #90 cap 11/14/19 mcg (2,000 unit) capsule ibuprofen [IBU] 600 mg PO Q8H PRN #20 tab 12/10/19 losartan 50 mg tablet 50 mg PO DAILY #90 tab 12/19/19 varicella-zoster glycoE [id number] 0.5 ml IM ONCE #1 ea 04/26/20 adj(PF) 50 mcg/0.5 mL IM susp, kit nystatin 100,000 unit/gram topical 1 applic TOPICAL BID PRN #60 gm 05/07/20 powder sertraline 100 mg tablet 100 mg PO DAILY #90 tab-cap 08/16/20 bisacodyl 5 mg tablet,delayed 5 mg PO ONCE #4 tab 11/04/20 release polyethylene glycol 3350 17 238 g PO ONCE #238 g 11/04/20 gram/dose oral powder Current Visit Medications: Current Medications Generic Name Dose Route Start Last Admin Trade Name Freq PRN Reason Stop Dose Admin Hyoscyamine Sulfate 0.125 mg 11/15/20 06:48 Hyoscyamine 0.125 Mg Sl/Oral/Chew SL DIRECTED PRN Ringer's Solution 1,000 mls @ 80 mls/hr 11/15/20 06:00 IV 12/12/20 23:59 INFUSION BRITTANY IV Miscellaneous Supplies 1 each 11/15/20 06:00 Iv Access IV 12/12/20 23:59 DIRECTED BRITTANY Ondansetron HCl 4 mg 11/15/20 06:48 Ondansetron 4 Mg/2 Ml Vial IVP Q4H PRN PRN Nausea / Vomiting Sodium Chloride 0 ml 11/15/20 06:00 Normal Saline Flush 10 Ml Syr IV 12/12/20 23:59 PRN PRN Sodium Chloride 0 ml 11/15/20 06:00 Normal Saline 10 Ml Vial IJ 12/12/20 23:59 DIRECTED PRN Sterile Water 0 ml 11/15/20 06:00 Water,Injection,Sterile 10 Ml Vial IJ 12/12/20 23:59 DIRECTED PRN PFSH Active Problems Active Problems: Problem Status Onset Code 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 Generalized anxiety disorder F41.1 Nonalcoholic fatty liver disease K76.0 Hereditary hemochromatosis E83.110 Hyperlipidemia E78.5 Osteopenia M85.80 Essential hypertension I10 Depressive disorder F32.9 Medical History Medical History Bulimia nervosa Depressive disorder Endometrial adenocarcinoma (~2019) FIGO grade 1 endometrial adenocarcinoma s/p hysterectomy Essential hypertension Gastroesophageal reflux disease Generalized anxiety disorder Hereditary hemochromatosis 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 Hyperlipidemia Nonalcoholic fatty liver disease Osteopenia Dexa 10/23 Prediabetes Surgical History Surgical History History of bilateral tubal ligation History of bladder surgery S/P cataract surgery (10/29/17) OD 10/22/17, OS 11/12/17 S/P colonoscopy (03/10/08) S/P tonsillectomy and adenoidectomy S/P total hysterectomy (01/15/20) For endometrial CA Status post hysteroscopy (12/10/19) With D&C Tobacco Smoking/Tobacco Use Status: Never Passive smoking exposure: Yes Second hand exposure: Yes Alcohol Alcohol Intake: current Alcohol intake frequency: holidays/special occasions only Alcohol type: hard liquor Substance Use Substance use: Never Substance use type: does not use Prental History History 3 Para 3 Hx # Term Pregnancies Multiple births Hx # Pregnancies Ectopic pregnancies AB induced Hx Number of Living Children 3 AB spontaneous Vital Signs and Lab Results Vital Signs Most Recent Vital Signs in EMR: Most Recent Vital Signs Temp Pulse Resp BP Pulse Ox 36.1 C L 63 18 144/75 H 98 11/15/20 09:20 11/15/20 09:20 11/15/20 09:20 11/15/20 09:20 11/15/20 09:20 Lab Results Blood Type / Crossmatch: No Data to Display Complete Blood Count: White Blood Count 5.64 10^3/uL (4.4-10.8) 11/01/20 08:04 11/01/20 Red Blood Count 4.36 10^6/uL (3.93-5.22) 11/01/20 08:04 11/01/20 Hemoglobin 14.2 g/dL (11.2-15.7) 11/01/20 08:04 11/01/20 Hematocrit 42.5 % (36.0-46.0) 11/01/20 08:04 11/01/20 Platelet Count 220 10^3/uL (130-400) 11/01/20 08:04 11/01/20 Complete Metabolic Panel: Sodium Level 145 mmol/L (136-145) 11/01/20 08:04 11/01/20 Potassium Level 4.5 mmol/L (3.5-5.1) 11/01/20 08:04 11/01/20 Chloride Level 108 mmol/L (98-107) H 11/01/20 08:04 11/01/20 Carbon Dioxide Level 29.2 mmol/L (21.0-32.0) 11/01/20 08:04 11/01/20 Blood Urea Nitrogen 26 mg/dL (7-18) H 11/01/20 08:04 11/01/20 Creatinine 1.0 mg/dL (0.55-1.02) 11/01/20 08:04 11/01/20 Estimated GFR/1.73 m2 54.50 (mL/min/1.73m2) 11/01/20 08:04 11/01/20 Calcium Level 8.9 mg/dL (8.5-10.1) 11/01/20 08:04 11/01/20 Albumin 3.6 g/dL (3.4-5.0) 11/01/20 08:04 11/01/20 Glucose Level 104 mg/dL (74-106) 11/01/20 08:04 11/01/20 Liver Function Panel: Alanine Aminotransferase (ALT/SGPT) 26 U/L (14-59) 11/01/20 08:04 11/01/20 Aspartate Amino Transf (AST/SGOT) 16 U/L (15-37) 11/01/20 08:04 11/01/20 Coagulation Panel: No Data to Display Cardiac Panel: 2 No Data to Display Arterial Blood Gas: No Data to Display Venous Blood Gas: No Data to Display Pancreas Panel: No Data to Display Thyroid Panel: No Data to Display Infectious Disease: Coronavirus (COVID-19)(PCR) Negative (Negative) 11/12/20 09:00 11/12/20 Coronavirus 2019 Source Nasal/Nares 11/12/20 09:00 11/12/20 Blood Cultures: No Data to Display Toxicology Panel: No Data to Display Imaging and Studies Imaging and Studies EKG Summary: Conclusion Sinus rhythm...normal P axis, V-rate 60- 99 Stress Test Summary: Impressions: Normal perfusion by [id number] Sestamibi Imaging. Summary: 1. Myocardial perfusion imaging: There is a moderate sized, mildly intense, fixed defect involving the anterolateral wall(s). Defect resolves with AC. Defect c/w breast shadow. 2. The calculated left ventricular ejection fraction after stress: 78%. Anesthesia Assessment and Plan Anesthesia History Personal History: No History of Anesthesia Complications Family History: No Family History of Anesthesia Complications Exercise Tolerance Exercise Tolerance: Metabolic Equivalents>4 Pertinent Negatives Pertinent Negatives: No Symptoms of GERD, No Major Cardiovascular Symptoms or Complaints, No Major Pulmonary Symptoms or Complaints and No History of CVA/TIA Cardiac & Pulmonary Exam Cardiac Exam: Normal S1/S2 Heart Sounds Pulmonary Exam: Clear Bilateral Breath Sounds Airway Exam Known Difficult Airway: No Mallampati Class: 2 Mouth Opening: Normal (> 3cm) Thyromental Distance: Greater than 3 cm Neck Range of Motion: Full ROM Neck Circumference: Normal Teeth Condition: Normal Dentition ASA Classification ASA Score: ASA 2 Emergency Case?: No NPO Status NPO Status: NPO Clears >2 hours, Solids >8 hours Anesthesia Plan Resuscitation Status: Full Code Anesthesia Technique: General Anesthesia Airway Planned: Natural Airway Monitors Used: Standard Monitors Preoperative Comments:: Right peroneal nerve injury with intermittent
[2020-11-15] MEDS: Lactated Ringers 1,000 ML 80 ML IV (09:55)
[2020-11-15 10:14] VITALS: BMI 40.1
--- NOTE | 2020-11-15 11:07 | W.ANESPOSTOP ---
Postoperative Evaluation Date, Time and Location Date Performed: 11/15/20 Time Performed: 11:07 Patient Location: Day Surgery Unit Vital Signs Most Recent Imported Vital Signs: Most Recent Vital Signs Temp Pulse Resp BP Pulse Ox 36.1 C L 63 18 144/75 H 98 11/15/20 09:20 11/15/20 09:20 11/15/20 09:20 11/15/20 09:20 11/15/20 09:20 Most Recent Manually Entered Vital Signs: Adult Blood Pressure: 121/61 Heart Rate: 52 Respirations: 14 Oxygen Saturation (%): 98 Temperature (C): 36.3 C Pain Score (0-10 Scale): 0 Assessment Mental Status: Awake (Alert & Oriented to Patient Baseline) Airway and Respiratory Function: Patent airway with normal (patient baseline) respiratory exam Cardiovascular Function: Hemodynamically Stable Hydration Status: Adequately Hydrated Nausea & Vomiting: No Nausea or Vomiting Pain: Pt. Denies Any Pain Peripheral Nerve Block: Patient did not receive a nerve block
[2020-11-15 11:08] VITALS: BP 121/61; PULSE 52; RESP 14; TEMPC 36.3; O2SAT 98
[2020-11-15 11:12] VITALS: BP 121/61; PULSE 48; RESP 14; TEMP 36.3; O2SAT 98
[2020-11-15 11:35] VITALS: BP 129/68; PULSE 56; RESP 18; TEMP 36; O2SAT 96
== END 2020-11-15 12:45 | disposition home or self-care (01) ==
LOC: SUR 09:13
PROVIDERS: PCP Nurse Practitioner Family; Visit Provider Surgery
PROC: 0DJD8ZZ Inspection of Lower Intestinal Tract, Via Natural or Artificial Opening Endoscopic (ICD-10-PCS; CPT 45378; principal; 2020-11-15 10:45)
DX: Z12.11 Encounter for screening for malignant neoplasm of colon (principal); I10 Essential (primary) hypertension; E78.5 Hyperlipidemia, unspecified; K76.0 Fatty (change of) liver, not elsewhere classified
CPT/HCPCS: G0121; J2001

== ENCOUNTER 2021-02-16 01:21 | Outpatient (CLI) | payer MEDICARE, BC, SELFPAY ==
[2021-02-16 08:58] LABS: HGB 14.7 g/dL (11.2-15.7); MCH 31.4 pg (27.0-33.0); MCHC 32.7 % (32.0-36.0); MCV 96.2 fL (80-95); MPV 9.9 fL (8.0-11.0); Platelet Count 203 10^3/uL (130-400); RBC 4.68 10^6/uL (3.93-5.22); RDW 12.3 % (11.7-14.6); RDW-SD 43.8 fL; WBC 4.64 10^3/uL (4.4-10.8)
[2021-02-16 09:39] LABS: Ferritin 76 ng/mL (8-252)
== END 2021-02-16 01:22 | disposition home or self-care (01) ==
PROVIDERS: PCP Nurse Practitioner Family; Visit Provider Nurse Practitioner Family
DX: E83.110 Hereditary hemochromatosis (principal)
CPT/HCPCS: 36415; 85027; 82728

== ENCOUNTER 2021-07-05 00:30 | Outpatient (CLI) | payer MEDICARE, BC, SELFPAY ==
--- NOTE | 2021-07-05 07:42 | DI.MAMMO_ITS ---
Exam(s) MAMMO SCREENING EXAM: MAMMO SCREENING CLINICAL HISTORY: screening,z12.39. TECHNIQUE: Bilateral full field digital CC and MLO mammographic images were obtained with 3D tomosyn thesis and utilizing computer aided detection (CAD). COMPARISON: Prior mammograms were reviewed, the most recent being June 2020. FINDINGS: There has been no significant change in the appearance and distribution of the fibroglandular tissue which is mostly fatty in nature. There are no CAD designations. There are no new spiculated masses nor malignant appearing microcalcification groups. Small benign-appearing nodule posteromedially in left breast is unchanged. There is no significant architectural distortion nor skin thickening-retraction. IMPRESSION: Stable benign-appearing findings. No radiographic evidence of malignancy. BI-RADS Category 2 - Benign Findings Breast Density - Category A - Almost entirely fatty Breast density Category C or D implies that the patient has dense breast tissue. Dense breast tissue can make it harder to find cancer on a mammogram. Dense breast tissue is also associated with an incr eased risk of breast cancer. This information about the result of the mammogram report was provided to the patient to raise their awareness. Use this report when you speak with the patient about their risks for breast cancer, which includes their family history. At that time, you may recommend additional screening tests (Ultrasoun d or MRI) as these tests may add significant information. A negative radiographic report should not delay biopsy if a dominant or clinically suspicious mass is present. Up to ten percent of cancers are not identified on mammography. A negative report may reinforce clinical impression. Adenosis and dense breasts may obscure an underlying neoplasm. False positive reports average 6 to 10%. Patient will receive a letter notifying them of these results.
== END 2021-07-05 00:50 ==
PROVIDERS: PCP Nurse Practitioner Family; Visit Provider Nurse Practitioner Family
DX: Z12.31 Encounter for screening mammogram for malignant neoplasm of breast (principal)
CPT/HCPCS: 77063; 77067

== ENCOUNTER 2021-10-05 03:53 | Outpatient (CLI) | payer MEDICARE, BC, SELFPAY ==
[2021-10-05 12:52] LABS: ALT 24 U/L (14-59); AST 24 U/L (15-37); Albumin 3.8 g/dL (3.4-5.0); Alkaline Phosphatase 110 U/L (46-116); Anion Gap 6.4 mmol/L (3-11); BUN 23 mg/dL (7-18); Bilirubin, Total 0.4 mg/dL (0.2-1.0); CO2 28.6 mmol/L (21.0-32.0); Calcium 9.3 mg/dL (8.5-10.1); Chloride 107 mmol/L (98-107); Estimated GFR 54.35 (mL/min/1.73m2); Ferritin 128 ng/mL (8-252); Glucose 87 mg/dL (74-106); Potassium 5.1 mmol/L (3.5-5.1); Sodium 142 mmol/L (136-145); Total Protein 7.2 g/dL (6.4-8.2)
== END 2021-10-05 03:54 | disposition home or self-care (01) ==
LOC: LOS 03:57
PROVIDERS: PCP Nurse Practitioner Family; Visit Provider Nurse Practitioner Family
DX: E83.110 Hereditary hemochromatosis (principal)
CPT/HCPCS: 36415; 80053; 82728

== ENCOUNTER 2021-10-10 09:35 | Outpatient (REF) | payer MEDICARE, BC, SELFPAY ==
[2021-10-10 13:12] LABS: Bilirubin Negative (Negative); Blood Negative (Negative); Clarity Clear (Clear); Glucose Negative (Negative); Ketones Negative (Negative); Leukocyte Esterase Trace (Negative); Nitrite Negative (Negative)
[2021-10-10 13:22] LABS: Bacteria Rare HPF (Negative); Casts Negative LPF (Negative); Crystals Negative HPF (Negative); Epithelial Cells Moderate HPF (Negative); Mucus Negative (Negative); RBC Negative HPF (0-2)
[2021-10-10 13:23] LABS: C & S Indicated? No/Sq. Contamination
== END 2021-10-10 09:36 | disposition home or self-care (01) ==
LOC: LBN 09:35
PROVIDERS: PCP Nurse Practitioner Family; Visit Provider Nurse Practitioner Family
DX: R35.0 Frequency of micturition (principal); R39.15 Urgency of urination; R39.89 Other symptoms and signs involving the genitourinary system
CPT/HCPCS: 81003; 81015

== ENCOUNTER 2022-04-19 01:31 | Outpatient (CLI) | payer MEDICARE, BC, SELFPAY ==
[2022-04-19 12:20] LABS: HCT 45.3 % (36.0-46.0); HGB 14.9 g/dL (11.2-15.7); MCH 31.8 pg (27.0-33.0); MCHC 32.9 % (32.0-36.0); MCV 97 fL (80-95); MPV 10.2 fL (8.0-11.0); Platelet Count 208 10^3/uL (130-400); RBC 4.68 10^6/uL (3.93-5.22); RDW 12.1 % (11.7-14.6); RDW-SD 43.3 fL
[2022-04-19 12:59] LABS: ALT 23 U/L (14-59); AST 20 U/L (15-37); Albumin 3.8 g/dL (3.4-5.0); Alkaline Phosphatase 98 U/L (46-116); Anion Gap 7.8 mmol/L (3-11); BUN 28 mg/dL (7-18); Bilirubin, Total 0.6 mg/dL (0.2-1.0); CO2 29.2 mmol/L (21.0-32.0); CREATININE 0.9 mg/dL (0.55-1.02); Calcium 9.5 mg/dL (8.5-10.1); Calculated LDL 171 mg/dL (<100); Chloride 106 mmol/L (98-107); Cholesterol 241 mg/dL (<200); Estimated GFR 67.08 (mL/min/1.73m2); Ferritin 199 ng/mL (8-252); Glucose 91 mg/dL (74-106); HDL Cholesterol 58 mg/dL (40-60); Potassium 4.4 mmol/L (3.5-5.1); Sodium 143 mmol/L (136-145); Total Protein 7.1 g/dL (6.4-8.2); Triglyceride 64 mg/dL (<150)
== END 2022-04-19 01:32 | disposition home or self-care (01) ==
LOC: LOS 01:31
PROVIDERS: PCP Nurse Practitioner Family; Visit Provider Nurse Practitioner Family
DX: E83.110 Hereditary hemochromatosis (principal); I10 Essential (primary) hypertension
CPT/HCPCS: 36415; 80053; 80061; 85027; 82728

== ENCOUNTER 2022-05-03 15:22 | Outpatient (REF) | payer MEDICARE, BC, SELFPAY | END 2022-05-03 15:23 | disposition home or self-care (01) | LOC: LBN 15:22 | PROVIDERS: PCP Nurse Practitioner Family; Visit Provider Nurse Practitioner Family | DX: R35.0 Frequency of micturition (principal) | CPT/HCPCS: 87086 ==

== ENCOUNTER 2022-05-18 02:42 | Outpatient (CLI) | payer MEDICARE, BC, SELFPAY ==
[2022-05-18 12:14] LABS: HCT 38.9 % (36.0-46.0); HGB 12.8 g/dL (11.2-15.7); MCH 32.7 pg (27.0-33.0); MCHC 32.9 % (32.0-36.0); MCV 100 fL (80-95); MPV 10.2 fL (8.0-11.0); Platelet Count 218 10^3/uL (130-400); RBC 3.91 10^6/uL (3.93-5.22); RDW-SD 47.3 fL; WBC 4.88 10^3/uL (4.4-10.8)
[2022-05-18 12:41] LABS: Ferritin 111 ng/mL (8-252)
== END 2022-05-18 02:43 | disposition home or self-care (01) ==
LOC: LOS 02:42
PROVIDERS: PCP Nurse Practitioner Family; Visit Provider Nurse Practitioner Family
DX: E83.110 Hereditary hemochromatosis (principal)
CPT/HCPCS: 36415; 85027; 82728

== ENCOUNTER 2022-05-19 11:47 | Emergency (ER) | payer MEDICARE, BC, SELFPAY ==
--- NOTE | 2022-05-19 11:45 | RT.EKG_ITS ---
APPROVED REPORT Exam: Resting ECG Reason for Exam: Chest pressure Patient Location: E HR:61 bpm ECG Measurements Heart Rate 61 AXIS VT 154 P 31 QRSd 86 QRS 31 QT 400 T 16 QTc 403 Conclusion Sinus rhythm...normal P axis, V-rate 60- 99
[2022-05-19 11:50] VITALS: BP 156/69; PULSE 65; RESP 16; TEMP 36.9; O2SAT 97
--- NOTE | 2022-05-19 12:05 | ED.GENADUL_ITS ---
Discharge Plan Disposition Patient Disposition: Home Condition: Stable Discharge Details Clinical Impression: Chest pain due to GERD, Chest pain Primary Care Provider: Angy Jacob ED Provider: Dahlia Vela Home Meds and New Rx's Prescriptions: Continued nystatin 100,000 unit/gram powder 1 applic Topical BID PRN (Reason: dermatitis) Qty: 60 4RF olopatadine 0.1 % drops 1 drp ophthalmic (eye) BID Qty: 5 0RF Rx Instructions: instill 1 drop left eye every 12 hours x 7 days losartan 50 mg tablet 50 mg PO DAILY Qty: 90 4RF cholecalciferol (vitamin D3) 50 mcg (2,000 unit) capsule 2,000 unit PO DAILY Qty: 90 4RF sertraline 100 mg tablet 100 mg PO DAILY Qty: 90 4RF ibuprofen [IBU] 600 mg tablet 600 mg PO Q8H PRNQty: 20 0RF Discharge Instructions Instructions: Chest Pain (ED), GERD (Gastroesophageal Reflux Disease) (ED) Additional Instructions: At this time the cardiac work-up is within normal limits. No evidence of heart attack. I do suspect acid reflux. Please consider taking an targ-gdl-bkuaica antacid such as Pepcid or Prevacid. You were given Tums here and a GI cocktail. Please follow-up with your primary care provider to discuss further cardiac work-up including a stress test and/or an echo as an outpatient. Please return to the ER if you have any worsening chest pain, sweatiness, nausea, radiation of pain down your arm or any concerns. Referrals: Angy Jacob NP [Primary Care Provider] - 3 days Discharge Data Discharge Date/Time-TO BE ENTERED AT DEPARTURE: 05/19/22 15:47 Medical Decision Making 76-year-old female presents to the ER with a chief complaint of midsternal chest tightness and pressure with some left arm tingling and diaphoresis that began this morning. 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 She reports that she ate an orange and had a sensation that it was stuck in her chest. She denies any radiation of the pain, reports a dry cough over the last couple of days. Denies any fever chills. Denies any nausea vomiting does endorse diarrhea yesterday. She reports that she been having trouble sleeping. EKG was reviewed by Dr. Daniel Raza MD ER attending, please see his official report. Old EKG available for review. Work-up ordered including serial troponins and chest x-ray 324 mg aspirin. CBC within normal limits, initial troponin within normal limits, CMP largely within normal limits. Second troponin within normal limits. Instructed to follow-up with PCP to discuss further evaluation including stress test and echo if needed. Discussed tricked return instructions she verbalized understanding. This text was generated using [employer] system, please disregard any oddities of phrase or misspellings. Imaging Data Radiologic Study: Imaging: X-Ray Radiologist's impression: CLINICAL HISTORY:? Chest Pain TECHNIQUE:? 2D digital imaging was performed of the chest.? Two images were obtained.? PA and lateral views were obtained. COMPARISON:? CR,XR XR CHEST 2V PA ? LATERAL from 11/08/2019 FINDINGS: MEDIASTINUM: Normal.? HEART: Normal. PULMONARY VASCULATURE: Normal. LUNGS: Clear. ? PLEURAL SPACE: No pleural effusion or pneumothorax. BONE:Within normal limits for the patient's age.? OTHER FINDINGS:Normal.? IMPRESSION: No acute pulmonary findings. Lab Data Lab results reviewed: Yes I reviewed the patient's lab results. Labs: Laboratory Tests Range/Units 05/19/22 05/19/22 05/19/22 12:05 12:05 13:49 WBC (4.4-10.8) 10^3/uL 5.80 RBC (3.93-5.22) 10^6/uL 4.14 Hgb (11.2-15.7) g/dL 13.3 Hct (36.0-46.0) % 39.8 MCV (80-95) fL 96 H D MCH (27.0-33.0) pg 32.1 MCHC (32.0-36.0) % 33.4 RDW (11.7-14.6) % 12.9 Plt Count (130-400) 10^3/uL 226 MPV (8.0-11.0) fL 9.7 Immature Gran % 0.2 Neutrophils % 62.2 Lymphocytes % 26.9 Monocytes % 7.8 Eosinophils % 2.2 Basophils % 0.7 Nucleated RBC % (0.0-0.3) % 0.0 Absolute Neutrophils (1.2-6.7) 10^3/uL 3.61 Absolute Lymphocytes (1.2-3.4) 10^3/uL 1.56 Absolute Monocytes (0.1-0.8) 10^3/uL 0.45 Absolute Eosinophils (0.0-0.7) 10^3/uL 0.13 Absolute Basophils (0.0-0.2) 10^3/uL 0.04 Sodium (136-145) mmol/L 138 Potassium (3.5-5.1) mmol/L 4.2 Chloride (98-107) mmol/L 105 Carbon Dioxide (21.0-32.0) mmol/L 29.4 Anion Gap (3-11) mmol/L 3.6 BUN (7-18) mg/dL 24 H Creatinine (0.55-1.02) mg/dL 0.9 Est GFR (CKD-EPI 2020) (mL/min/1.73m2) 67.08 Glucose (74-106) mg/dL 106 Calcium (8.5-10.1) mg/dL 9.3 Magnesium (1.8-2.4) mg/dL 2.1 Total Bilirubin (0.2-1.0) mg/dL 0.5 AST (15-37) U/L 14 L ALT (14-59) U/L 20 Alkaline Phosphatase (46-116) U/L 95 Troponin I (<or=60) ng/L < 50 Total Protein (6.4-8.2) g/dL 6.9 Albumin (3.4-5.0) g/dL 3.8 Urine Color (Yellow) Yellow Urine Clarity (Clear) Clear Urine pH (5-8) 6.5 Ur Specific [place] (1.005-1.025) 1.020 Urine Protein (Negative) mg/dL Negative Urine Ketones (Negative) mg/dL Negative Urine Blood (Negative) Negative Urine Nitrite (Negative) Negative Urine Bilirubin (Negative) Negative Urine Urobilinogen (Up to 0.2) mg/dL 1.0 H Ur Leukocyte Esterase (Negative) Negative Urine Glucose (Negative) mg/dL Negative Range/Units 05/19/22 15:00 WBC (4.4-10.8) 10^3/uL RBC (3.93-5.22) 10^6/uL Hgb (11.2-15.7) g/dL Hct (36.0-46.0) % MCV (80-95) fL MCH (27.0-33.0) pg MCHC (32.0-36.0) % RDW (11.7-14.6) % Plt Count (130-400) 10^3/uL MPV (8.0-11.0) fL Immature Gran % Neutrophils % Lymphocytes % Monocytes % Eosinophils % Basophils % Nucleated RBC % (0.0-0.3) % Absolute Neutrophils (1.2-6.7) 10^3/uL Absolute Lymphocytes (1.2-3.4) 10^3/uL Absolute Monocytes (0.1-0.8) 10^3/uL Absolute Eosinophils (0.0-0.7) 10^3/uL Absolute Basophils (0.0-0.2) 10^3/uL Sodium (136-145) mmol/L Potassium (3.5-5.1) mmol/L Chloride (98-107) mmol/L Carbon Dioxide (21.0-32.0) mmol/L Anion Gap (3-11) mmol/L BUN (7-18) mg/dL Creatinine (0.55-1.02) mg/dL Est GFR (CKD-EPI 2020) (mL/min/1.73m2) Glucose (74-106) mg/dL Calcium (8.5-10.1) mg/dL Magnesium (1.8-2.4) mg/dL Total Bilirubin (0.2-1.0) mg/dL AST (15-37) U/L ALT (14-59) U/L Alkaline Phosphatase (46-116) U/L Troponin I (<or=60) ng/L < 50 Total Protein (6.4-8.2) g/dL Albumin (3.4-5.0) g/dL Urine Color (Yellow) Urine Clarity (Clear) Urine pH (5-8) Ur Specific [place] (1.005-1.025) Urine Protein (Negative) mg/dL Urine Ketones (Negative) mg/dL Urine Blood (Negative) Urine Nitrite (Negative) Urine Bilirubin (Negative) Urine Urobilinogen (Up to 0.2) mg/dL Ur Leukocyte Esterase (Negative) Urine Glucose (Negative) mg/dL HPI General Mode of arrival: ambulatory . Date/Time Provider Initiated Documentation: 05/19/22 11:54 . Limitations to Documentation: no limitations . Information obtained by: patient, RN notes reviewed and old records reviewed . HPI Narrative: 76-year-old female presents to the ER with a chief complaint of midsternal chest tightness and pressure with some left arm tingling and diaphoresis that began this morning. 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 She reports that she ate an orange and had a sensation that it was stuck in her chest. She denies any radiation of the pain, reports a dry cough over the last couple of days. Denies any fever chills. Denies any nausea vomiting does endorse diarrhea yesterday. She reports that she been having trouble sleeping. Past medical history includes endometrial cancer hypertension hereditary hemochromatosis, nonalcoholic fatty liver disease hyperlipidemia anxiety and depression. She also reports that she has been having a glass of liquor at night however she did not have any last night. Related Data Home Medications Medication Instructions Recorded Confirmed ibuprofen 600 mg tablet (IBU) 600 mg PO Q8H PRN #20 tabs 12/10/19 05/03/22 cholecalciferol (vitamin D3) 50 2,000 unit PO DAILY #90 caps 04/07/21 05/03/22 mcg (2,000 unit) capsule losartan 50 mg tablet 50 mg PO DAILY #90 tabs 04/07/21 05/03/22 nystatin 100,000 unit/gram topical 1 applic topical BID PRN 04/28/21 05/03/22 powder dermatitis #60 grams sertraline 100 mg tablet 100 mg PO DAILY #90 tab-caps 10/18/21 05/03/22 olopatadine 0.1 % eye drops 1 drp ophthalmic (eye) BID #5 mL 11/04/21 05/03/22 Previous Rx's Medication Instructions Recorded ibuprofen 600 mg tablet (IBU) 600 mg PO Q8H PRN #20 tabs 12/10/19 cholecalciferol (vitamin D3) 50 2,000 unit PO DAILY #90 caps 04/07/21 mcg (2,000 unit) capsule losartan 50 mg tablet 50 mg PO DAILY #90 tabs 04/07/21 nystatin 100,000 unit/gram topical 1 applic topical BID PRN 04/28/21 powder dermatitis #60 grams sertraline 100 mg tablet 100 mg PO DAILY #90 tab-caps 10/18/21 olopatadine 0.1 % eye drops 1 drp ophthalmic (eye) BID #5 mL 11/04/21 Allergies Allergy/AdvReac Type Severity Reaction Status Date / Time Sulfa (Sulfonamide Allergy Intermediate HIVES Verified 05/03/22 13:27 Antibiotics) aluminum Allergy Mild Verified 05/03/22 13:27 lisinopril AdvReac Mild Cough Verified 05/03/22 13:27 ZINC GLUCONATE Allergy Mild ITCHING Uncoded 05/03/22 13:27 General Stated Complaint: Chest Pain KAMI: 2 Review of Systems All systems reviewed & are unremarkable except as noted in HPI and below Cardiovascular Cardiovascular: Reports chest pain and Reports diaphoresis PFSH All Active Problems (Updated 05/19/22 @ 15:39 by Dahlia Vela NP) Chest pain due to GERD (Acute) Chest pain (Acute) History of endometrial cancer (Chronic ~2019) FIGO grade 1 endometrial adenocarcinoma s/p hysterectomy. 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 Nonalcoholic fatty liver disease (Chronic) Hyperlipidemia (Chronic) Generalized anxiety disorder (Chronic) Depressive disorder (Chronic) Osteopenia (Chronic) Dexa 10/23 Medical History Bulimia nervosa Endometrial adenocarcinoma (~2019) FIGO grade 1 endometrial adenocarcinoma s/p hysterectomy Gastroesophageal reflux disease Prediabetes Surgical History History of bilateral tubal ligation History of bladder surgery Normal colonoscopy (~11/2020) S/P cataract surgery (10/29/17) OD 10/22/17, OS 11/12/17 S/P colonoscopy (03/10/08) S/P tonsillectomy and adenoidectomy S/P total hysterectomy (01/15/20) For endometrial CA Status post hysteroscopy (12/10/19) With D&C Family History Mother No problems noted. Father , 72 Hyperlipidemia Heart disease Hypertension Prostate cancer Myocardial infarction Sister Hyperlipidemia Depression Son Depression Daughter Mental disorder Substance abuse Depression Daughter Maria Luz-Danlos disease Depression Maternal Grandfather Myocardial infarction Heart disease Maternal Grandmother No problems noted. Paternal Grandfather Heart disease Myocardial infarction Paternal Grandmother Hypertension Hyperlipidemia Heart disease Type 2 diabetes mellitus Myocardial infarction Social History Smoking/Tobacco Use Status: Never Second Hand Exposure: Yes Smoking risk assessment performed?: Yes Alcohol Intake: current Alcohol Intake frequency: 0-2 drinks per day Alcohol type: hard liquor Drug use: Never Substance use type: does not use Caregiver/Support person: No Household members: none Housing: apartment Communication Needs: None Do you need help understanding health information?: Often Pets and animals: Yes Pets and animals: cat(s) Sexually active: No Do you think of yourself as: straight/heterosexual Current gender identity: female What is your relationship status?: How often do you talk on the phone with friends or family?: three or more times per week How often do you get together with friends or relatives?: three or more times per week How often do you attend orthodoxy or congregation services?: 4 or more times per year Do you belong to any clubs or organized social groups?: yes Panel score (0-1 are the most socially isolated patients): 3 What type of physical activity do you participate in: none Frequency: does not exercise Elly/Gnosticism: None Special elly needs: No Seatbelt use: always Drive intox or ride w/intox chuck wagon driver: No Do you feel safe at home: Yes Do you feel safe in your relationship?: Yes Female Reproductive History Menstrual Menopause type: natural History History 3 Para 3 Hx # Term Pregnancies Multiple births Hx # Pregnancies Ectopic pregnancies AB induced Hx Number of Living Children 3 AB spontaneous Exam Narrative Exam Narrative: Constitutional: Alert and oriented x3. Appears stated age. Normal body habitus. Head: Normocephalic, no trauma. Eyes: Pupils PERRL, Red reflex noted, EOM's intact. Eyelids symmetrical without lesions, discharge, or swelling. ENT: Bilateral TM's WNL, External ear normal to inspection, no mastoid TTP, swelling, or erythema, Nasal turbinates WNL, no nasal discharge. Normal dentition, Posterior pharynx WNL, no exudate. Chest: RRR, Normal S1, S2, distal pulses intact. Resp: Lungs clear to auscultation bilaterally, no wheezes, rales, or rhonchi. Abdomen: Soft, non-distended, Normoactive bowel sounds all 4 quads. Musculoskeletal: Normal gait, 5/5 strength to all four extremities. Skin: No suspicious rashes or lesions. Capillary refill less than 2 sec. Neurologic: Cranial nerves II-XII intact. Alert and oriented x 3. Motor: No deficits noted. Sensory: Intact bilaterally all 4 extremities. Reflexes: DTR's intact bilaterally.. Hematologic/Lymphatic: No ecchymosis, no lymphadenopathy. Course Vital Signs Vital signs: Vital Signs Temperature 36.9 C 05/19/22 11:50 Pulse 65 05/19/22 11:50 Respiratory Rate 16 05/19/22 11:50 Blood Pressure 156/69 H 05/19/22 11:50 Pulse Oximetry 97 05/19/22 11:50 Temperature 36.9 C 05/19/22 11:50 Temperature Source Skin 05/19/22 11:50 Pulse 65 05/19/22 11:50 Respiratory Rate 16 05/19/22 11:50 Blood Pressure 156/69 H 05/19/22 11:50 Pulse Oximetry 97 05/19/22 11:50 Oxygen Delivery Method Room Air 05/19/22 11:50 Oxygen Flow Rate 0 05/19/22 11:50 Pain Level 5 05/19/22 11:50
[2022-05-19 12:08] VITALS: RESP 18
[2022-05-19] MEDS: Aspirin 81 MG CHEW 324 MG CH (12:13)
[2022-05-19 12:16] LABS: Abs Immature Grans 0.01 10^3/uL (0.0-0.06); Absolute Basophil Count 0.04 10^3/uL (0.0-0.2); Absolute Eosinophil Count 0.13 10^3/uL (0.0-0.7); Absolute Lymphocyte Count 1.56 10^3/uL (1.2-3.4); Absolute Monocyte Count 0.45 10^3/uL (0.1-0.8); Absolute Neutrophil Count 3.61 10^3/uL (1.2-6.7); Basophils % 0.7; Eosinophils % 2.2; HCT 39.8 % (36.0-46.0); HGB 13.3 g/dL (11.2-15.7); Immature Grans % 0.2; Lymphocytes % 26.9; MCH 32.1 pg (27.0-33.0); MCHC 33.4 % (32.0-36.0); MCV 96 fL (80-95); MPV 9.7 fL (8.0-11.0); Monocytes % 7.8; Neutrophils % 62.2; Platelet Count 226 10^3/uL (130-400); RBC 4.14 10^6/uL (3.93-5.22); RDW 12.9 % (11.7-14.6); RDW-SD 45.6 fL
[2022-05-19 12:28] LABS: ALT 20 U/L (14-59); AST 14 U/L (15-37); Albumin 3.8 g/dL (3.4-5.0); Alkaline Phosphatase 95 U/L (46-116); Anion Gap 3.6 mmol/L (3-11); BUN 24 mg/dL (7-18); Bilirubin, Total 0.5 mg/dL (0.2-1.0); CO2 29.4 mmol/L (21.0-32.0); CREATININE 0.9 mg/dL (0.55-1.02); Calcium 9.3 mg/dL (8.5-10.1); Chloride 105 mmol/L (98-107); Estimated GFR 67.08 (mL/min/1.73m2); Glucose 106 mg/dL (74-106); Magnesium 2.1 mg/dL (1.8-2.4); Potassium 4.2 mmol/L (3.5-5.1); Sodium 138 mmol/L (136-145); Total Protein 6.9 g/dL (6.4-8.2); Troponin I < 50 ng/L (<or=60)
--- NOTE | 2022-05-19 12:51 | DI.RAD_ITS ---
Exam(s) XR CHEST 2V PA LATERAL EXAM: XR CHEST 2V PA LATERAL CLINICAL HISTORY: Chest Pain TECHNIQUE: 2D digital imaging was performed of the chest. Two images were obtained. PA and lateral views were obtained. COMPARISON: CR,XR XR CHEST 2V PA LATERAL from 11/08/2019 FINDINGS: MEDIASTINUM: Normal. HEART: Normal. PULMONARY VASCULATURE: Normal. LUNGS: Clear. PLEURAL SPACE: No pleural effusion or pneumothorax. BONE:Within normal limits for the patient's age. OTHER FINDINGS:Normal. IMPRESSION: No acute pulmonary findings. DATA REPOSITORY: RADIATION DOSE DELIVERED:
[2022-05-19 13:55] LABS: Bilirubin Negative (Negative); Blood Negative (Negative); Clarity Clear (Clear); Glucose Negative (Negative); Ketones Negative (Negative); Leukocyte Esterase Negative (Negative); Nitrite Negative (Negative); pH 6.5 (5-8)
[2022-05-19 15:26] LABS: Troponin I < 50 ng/L (<or=60)
[2022-05-19 15:47] VITALS: BP 136/65; PULSE 71; RESP 18; O2SAT 97
== END 2022-05-19 15:47 | disposition home or self-care (01) ==
PROVIDERS: Emergency Provider Registered Nurse Emergency; PCP Nurse Practitioner Family
DX: R07.89 Other chest pain (principal); K21.9 Gastro-esophageal reflux disease without esophagitis; R20.2 Paresthesia of skin; R61 Generalized hyperhidrosis; R05.9 Cough, unspecified
CPT/HCPCS: 36415; 80053; 93005; 99283; 71046; 81003; 83735; 84484; 85025; 93010; 99285

== ENCOUNTER 2022-05-22 01:58 | Outpatient (CLI) | payer MEDICARE, BC, SELFPAY ==
--- NOTE | 2022-05-22 | DI.US_ITS ---
Exam(s) US BREAST LT COMPLETE MG MAMMO DIAGNOSTIC BI EXAM: MG MAMMO DIAGNOSTIC BI AND COMPLETE LEFT BREAST ULTRASOUND CLINICAL HISTORY: left breast pain,n64.4. TECHNIQUE: BOTH CC AND MLO mammographic images OF BOTH BREASTS were obtained with 3D tomosynthesis t echnique and utilizing computer aided detection (CAD). COMPLETE LEFT BREAST ULTRASOUND was performed, including all 4 quadrants as well as the retroareolar region and left axilla. COMPARISON: Prior mammograms were reviewed, the most recent being July 2021.. This 76 year old patient is complaining of new onset occasional left breast pain, mostly upper-outer quadrant. Denies trauma. FINDINGS: DIAGNOSTIC BILATERAL MAMMOGRAM: There has been no significant change in the appearance and distribution of the fibroglandular tissue which is mostly fatty. There are no CAD designations. There are no new masses nor malignant-appearing microcalcification groups in either breast. Asymmetr ic density posterior medially in left breast is unchanged from prior studies. No new architectural distortion or skin thickening-retraction. IMPRESSION: No radiographic evidence of malignancy Negative complete left breast ultrasound (side of pain) The patient was informed of the findings by myself and follow-up recommendations prior to leaving the department today. Two-benign findings Breast Density - Category A - Almost entirely fatty Breast density Category C or D implies that the patient has dense breast tissue. Dense breast tissue can make it harder to find cancer on a mammogram. Dense breast tissue is also associated with an incr eased risk of breast cancer. This information about the result of the mammogram report was provided to the patient to raise their awareness. Use this report when you speak with the patient about their risks for breast cancer, which includes their family history. At that time, you may recommend additional screening tests (Ultrasoun d or MRI) as these tests may add significant information. A negative radiographic report should not delay biopsy if a dominant or clinically suspicious mass is present. Up to ten percent of cancers are not identified on mammography. A negative report may reinforce clinical impression. Adenosis and dense breasts may obscure an underlying neoplasm. False positive reports average 6 to 10%. Patient will receive a letter notifying them of these results.
== END 2022-05-22 02:18 ==
LOC: DI 01:58
PROVIDERS: PCP Nurse Practitioner Family; Visit Provider Nurse Practitioner Family
DX: N64.4 Mastodynia (principal); R92.8 Other abnormal and inconclusive findings on diagnostic imaging of breast; N60.82 Other benign mammary dysplasias of left breast
CPT/HCPCS: 76642; 77062; 77066; 99195; G0279

== ENCOUNTER 2022-05-22 14:00 | Outpatient (RCR) | payer MEDICARE, BC, SELFPAY | END 2022-06-02 23:59 | disposition home or self-care (01) | LOC: INF 14:00 | PROVIDERS: PCP Nurse Practitioner Family; Visit Provider Nurse Practitioner Family | DX: E83.110 Hereditary hemochromatosis | CPT/HCPCS: 99195 ==

== ENCOUNTER 2022-05-30 02:27 | Outpatient (CLI) | payer MEDICARE, BC, SELFPAY ==
[2022-05-30 12:17] LABS: HCT 39.3 % (36.0-46.0); MCH 32.7 pg (27.0-33.0); MCHC 33.1 % (32.0-36.0); MCV 99 fL (80-95); MPV 10.1 fL (8.0-11.0); Platelet Count 231 10^3/uL (130-400); RBC 3.97 10^6/uL (3.93-5.22); RDW 13.1 % (11.7-14.6); RDW-SD 47.8 fL; WBC 6.16 10^3/uL (4.4-10.8)
[2022-05-30 12:45] LABS: Ferritin 74 ng/mL (8-252)
== END 2022-05-30 02:28 | disposition home or self-care (01) ==
LOC: LOS 02:27
PROVIDERS: PCP Nurse Practitioner Family; Visit Provider Nurse Practitioner Family
DX: E83.110 Hereditary hemochromatosis (principal)
CPT/HCPCS: 85027; 82728

== ENCOUNTER 2022-08-26 12:59 | Outpatient (REF) | payer MEDICARE, BC, SELFPAY | END 2022-08-26 13:00 | disposition home or self-care (01) | LOC: LBN 12:59 | PROVIDERS: PCP Nurse Practitioner Family; Visit Provider Nurse Practitioner Family | DX: J02.9 Acute pharyngitis, unspecified (principal) | CPT/HCPCS: 87070 ==

== ENCOUNTER 2023-01-18 04:51 | Outpatient (CLI) | payer MEDICARE, BC, SELFPAY ==
[2023-01-18 12:33] LABS: HCT 44.7 % (36.0-46.0); HGB 14.9 g/dL (11.2-15.7); MCH 32.7 pg (27.0-33.0); MCHC 33.3 % (32.0-36.0); MCV 98 fL (80-95); MPV 10.2 fL (8.0-11.0); Platelet Count 210 10^3/uL (130-400); RBC 4.56 10^6/uL (3.93-5.22); RDW 11.9 % (11.7-14.6); RDW-SD 43.5 fL; WBC 5.07 10^3/uL (4.4-10.8)
[2023-01-18 13:00] LABS: Calculated LDL 70 mg/dL (<100); Cholesterol 144 mg/dL (<200); Ferritin 87 ng/mL (8-252); HDL Cholesterol 65 mg/dL (40-60); Triglyceride 45 mg/dL (<150)
== END 2023-01-18 04:52 | disposition home or self-care (01) ==
LOC: LOS 04:51
PROVIDERS: PCP Nurse Practitioner Family; Visit Provider Nurse Practitioner Family
DX: E83.110 Hereditary hemochromatosis (principal); E78.5 Hyperlipidemia, unspecified
CPT/HCPCS: 36415; 80061; 85027; 82728

== ENCOUNTER 2023-02-16 16:20 | Emergency (ER) | payer MEDICARE, BC, SELFPAY ==
[2023-02-16 16:23] VITALS: BP 179/68; PULSE 65; RESP 14; TEMP 36.4; O2SAT 97
--- NOTE | 2023-02-16 16:50 | DI.RAD_ITS ---
Exam(s) XR WRIST RT COMPLETE EXAM: XR WRIST RT COMPLETE CLINICAL HISTORY: pain and swelling post fall. TECHNIQUE: 2D digital imaging was performed of the right wrist. Three views were obtained. PA, lat eral and oblique views were obtained. COMPARISON: No previous for comparison. FINDINGS: BONES: No acute fracture is present. No bony destructive lesion is seen. JOINTS: The carpal bones are normally aligned. SOFT TISSUE: Normal. IMPRESSION: Unremarkable radiographs of the right wrist. DATA REPOSITORY: RADIATION DOSE DELIVERED:
--- NOTE | 2023-02-16 21:14 | ED.GENADUL_ITS ---
Discharge Plan Disposition Patient Disposition: Home Discharge Details Clinical Impression: Muscle strain of right wrist Primary Care Provider: Angy Jacob ED Provider: Amalia Loja Home Meds and New Rx's Prescriptions: Continued nystatin 100,000 unit/gram powder 1 applic Topical BID PRN (Reason: dermatitis) Qty: 60 4RF rosuvastatin 10 mg tablet 10 mg PO DAILY Qty: 90 3RF sertraline 150 mg capsule 150 mg PO DAILY Qty: 90 3RF lorazepam 1 mg tablet 1 mg PO DAILY PRN (Reason: anxiety) Qty: 14 0RF losartan 50 mg tablet 50 mg PO DAILY Qty: 90 3RF cholecalciferol (vitamin D3) 50 mcg (2,000 unit) capsule 2,000 unit PO DAILY Qty: 90 3RF ibuprofen [IBU] 600 mg tablet 600 mg PO Q8H PRNQty: 20 0RF Discharge Instructions Instructions: Muscle Strain (ED) Additional Instructions: Take Tylenol as needed for pain Wear splint as needed for discomfort Return with worsening pain or swelling new or worsening symptoms arise Should her pain last longer than 1 to 2 weeks, recommendation for repeat assessment and evaluation Please have your blood pressure checked by her primary care physician Referrals: Angy Jacob, [facility] [Primary Care Provider] - Discharge Data Discharge Date/Time-TO BE ENTERED AT DEPARTURE: 02/16/23 17:25 Medical Decision Making 77-year-old female presenting with right wrist pain after fall, alert and oriented x 4, cranial nerves II through XII intact, ambulatory steady gait, tenderness to right wrist, mild swelling, no tenderness to right elbow, no tenderness to right shoulder, neurovascularly intact x-ray of right wrist was ordered, no evidence of acute abnormality per radiology interpretation my review Patient was splinted for comfort to treat sprain Repeat imaging recommended in 1 week with persistent pain HPI General Date/Time Provider Initiated Documentation: 02/16/23 16:30 . HPI Narrative: 77-year-old female presents with report of right wrist pain. Reportedly caught herself during a slip and fall which was mechanical in nature on Sunday. Denies any head injury or any additional complaints. Mostly is concerned about some right wrist pain. Related Data Home Medications Medication Instructions Recorded Confirmed ibuprofen 600 mg tablet (IBU) 600 mg PO Q8H PRN #20 tabs 10/07/20 12/15/23 nystatin 100,000 unit/gram topical 1 applic topical BID PRN 04/28/21 02/16/23 powder dermatitis #60 grams cholecalciferol (vitamin D3) 50 2,000 unit PO DAILY #90 caps 05/26/22 02/16/23 mcg (2,000 unit) capsule losartan 50 mg tablet 50 mg PO DAILY #90 tabs 05/26/22 02/16/23 rosuvastatin 10 mg tablet 10 mg PO DAILY #90 tabs 06/02/22 02/16/23 lorazepam 1 mg tablet 1 mg PO DAILY PRN anxiety #14 tabs 01/31/23 02/16/23 sertraline 150 mg capsule 150 mg PO DAILY #90 caps 01/31/23 02/16/23 Previous Rx's Medication Instructions Recorded ibuprofen 600 mg tablet (IBU) 600 mg PO Q8H PRN #20 tabs 12/10/19 nystatin 100,000 unit/gram topical 1 applic topical BID PRN 04/28/21 powder dermatitis #60 grams cholecalciferol (vitamin D3) 50 2,000 unit PO DAILY #90 caps 05/26/22 mcg (2,000 unit) capsule losartan 50 mg tablet 50 mg PO DAILY #90 tabs 05/26/22 rosuvastatin 10 mg tablet 10 mg PO DAILY #90 tabs 06/02/22 lorazepam 1 mg tablet 1 mg PO DAILY PRN anxiety #14 tabs 01/31/23 sertraline 150 mg capsule 150 mg PO DAILY #90 caps 01/31/23 Allergies Allergy/AdvReac Type Severity Reaction Status Date / Time Sulfa (Sulfonamide Allergy Intermediate HIVES Verified 02/16/23 16:27 Antibiotics) aluminum Allergy Mild Verified 02/16/23 16:27 lisinopril AdvReac Mild Cough Verified 02/16/23 16:27 ZINC GLUCONATE Allergy Mild ITCHING Uncoded 02/16/23 16:27 General Stated Complaint: Orthopedic KAMI: 4 PFSH All Active Problems (Updated 02/16/23 @ 17:15 by AUGUST Rodney) Muscle strain of right wrist (Acute) History of endometrial cancer (Chronic ~2019) FIGO grade 1 endometrial adenocarcinoma s/p hysterectomy. 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 Nonalcoholic fatty liver disease (Chronic) Hyperlipidemia (Chronic) Major depressive disorder, recurrent (Chronic) Generalized anxiety disorder (Chronic) Insomnia (Acute) Osteopenia (Chronic) Dexa 10/23 Medical History (Updated 02/16/23 @ 17:15 by AUGUST Rodney) Endometrial adenocarcinoma (~2019) FIGO grade 1 endometrial adenocarcinoma s/p hysterectomy Gastroesophageal reflux disease Prediabetes Bulimia nervosa Surgical History Normal colonoscopy (~11/2020) S/P total hysterectomy (01/15/20) For endometrial CA Status post hysteroscopy (12/10/19) With D&C S/P colonoscopy (03/10/08) S/P tonsillectomy and adenoidectomy History of bilateral tubal ligation History of bladder surgery S/P cataract surgery (10/29/17) OD 10/22/17, OS 11/12/17 Family History Mother No problems noted. Father , 72 Hyperlipidemia Heart disease Hypertension Prostate cancer Myocardial infarction Sister Hyperlipidemia Depression Son Depression Daughter Mental disorder Substance abuse Depression Daughter Maria Luz-Danlos disease Depression Maternal Grandfather Myocardial infarction Heart disease Maternal Grandmother No problems noted. Paternal Grandfather Heart disease Myocardial infarction Paternal Grandmother Hypertension Hyperlipidemia Heart disease Type 2 diabetes mellitus Myocardial infarction Social History Smoking/Tobacco Use Status: Never Second Hand Exposure: Yes Smoking risk assessment performed?: Yes Alcohol Intake: current Alcohol Intake frequency: holidays/special occasions only Alcohol type: hard liquor Drug use: Never Substance use type: does not use Caregiver/Support person: No Household members: none Housing: apartment Communication Needs: None Do you need help understanding health information?: Often Pets and animals: Yes Pets and animals: cat(s) Sexually active: No Do you think of yourself as: straight/heterosexual Current gender identity: female What is your relationship status?: How often do you talk on the phone with friends or family?: three or more times per week How often do you get together with friends or relatives?: three or more times per week How often do you attend roman catholic or congregation services?: 4 or more times per year Do you belong to any clubs or organized social groups?: yes Panel score (0-1 are the most socially isolated patients): 3 What type of physical activity do you participate in: none Duration: 15-30 minutes/day Frequency: does not exercise Elly/Zoroastrianism: None Special elly needs: No Seatbelt use: always Drive intox or ride w/intox courier delivery driver: No Do you feel safe at home: Yes Do you feel safe in your relationship?: Yes Female Reproductive History Menstrual Menopause type: natural History History 3 Para 3 Hx # Term Pregnancies Multiple births Hx # Pregnancies Ectopic pregnancies AB induced Hx Number of Living Children 3 AB spontaneous Course Vital Signs Vital signs: Vital Signs Temperature 36.4 C L 02/16/23 16:23 Pulse 65 02/16/23 16:23 Respiratory Rate 14 02/16/23 16:23 Blood Pressure 179/68 H 02/16/23 16:23 Pulse Oximetry 97 02/16/23 16:23 Temperature 36.4 C L 02/16/23 16:23 Temperature Source Skin 02/16/23 16:23 Pulse 65 02/16/23 16:23 Respiratory Rate 14 02/16/23 16:23 Respiratory Effort Normal, Non-Labored 02/16/23 16:29 Blood Pressure 179/68 H 02/16/23 16:23 Blood Pressure Position Sitting 02/16/23 16:23 Pulse Oximetry 97 02/16/23 16:23 Oxygen Delivery Method Room Air 02/16/23 16:23 Oxygen Flow Rate 0 02/16/23 16:23 Pain Level 5 02/16/23 16:23
== END 2023-02-16 17:25 | disposition home or self-care (01) ==
PROVIDERS: Emergency Provider Physician Assistant; PCP Nurse Practitioner Family
DX: S66.911A Strain of unspecified muscle, fascia and tendon at wrist and hand level, right hand, initial encounter (principal); I10 Essential (primary) hypertension; E78.5 Hyperlipidemia, unspecified; W01.0XXA Fall on same level from slipping, tripping and stumbling without subsequent striking against object, initial encounter; Y93.01 Activity, walking, marching and hiking; Y99.8 Other external cause status
CPT/HCPCS: 99283; 73110

== ENCOUNTER 2023-05-03 05:31 | Outpatient (CLI) | payer MEDICARE, BC, SELFPAY ==
[2023-05-03 10:18] LABS: Basophils % 0.9; Eosinophils % 2.8; HCT 44.7 % (36.0-46.0); HGB 15.2 g/dL (11.2-15.7); Lymphocytes % 28.4; MCH 32.1 pg (27.0-33.0); MCV 94 fL (80-95); MPV 9.4 fL (8.0-11.0); Monocytes % 6.8; Neutrophils % 60.8; Platelet Count 226 10^3/uL (130-400); RBC 4.74 10^6/uL (3.93-5.22); RDW 11.7 % (11.7-14.6); RDW-SD 40.8 fL; WBC 5.73 10^3/uL (4.4-10.8)
[2023-05-03 10:19] LABS: Abs Immature Grans 0.02 10^3/uL (0.0-0.06); Absolute Basophil Count 0.05 10^3/uL (0.0-0.2); Absolute Eosinophil Count 0.16 10^3/uL (0.0-0.7); Absolute Lymphocyte Count 1.63 10^3/uL (1.2-3.4); Absolute Monocyte Count 0.39 10^3/uL (0.1-0.8); Absolute Neutrophil Count 3.48 10^3/uL (1.2-6.7); Immature Grans % 0.3
[2023-05-03 10:42] LABS: Hemoglobin A1C 5.5 % (<5.7)
[2023-05-03 10:49] LABS: ALT 20 U/L (14-59); AST 17 U/L (15-37); Alkaline Phosphatase 91 U/L (46-116); Anion Gap 8.7 mmol/L (3-11); BUN 25 mg/dL (7-18); Bilirubin, Total 0.7 mg/dL (0.2-1.0); CO2 28.3 mmol/L (21.0-32.0); CREATININE 1.1 mg/dL (0.55-1.02); Calcium 9.8 mg/dL (8.5-10.1); Chloride 106 mmol/L (98-107); Ferritin 183 ng/mL (8-252); Glucose 102 mg/dL (74-106); Sodium 143 mmol/L (136-145); Total Protein 7.7 g/dL (6.4-8.2)
[2023-05-03 11:00] LABS: Vitamin D 25 Total 48.2 ng/mL (30-100)
[2023-05-03 18:40] LABS: Hepatitis C Ab w Rflx HCV PCR Negative (Negative)
== END 2023-05-03 05:32 | disposition home or self-care (01) ==
LOC: LOS 05:31
PROVIDERS: PCP Nurse Practitioner Family; Visit Provider Nurse Practitioner Family
DX: I10 Essential (primary) hypertension (principal); E83.110 Hereditary hemochromatosis; K76.0 Fatty (change of) liver, not elsewhere classified; M85.89 Other specified disorders of bone density and structure, multiple sites
CPT/HCPCS: 36415; 80053; 82306; 86803; 82728; 83036; 85025

== ENCOUNTER 2023-05-17 03:03 | Outpatient (CLI) | payer MEDICARE, BC, SELFPAY ==
[2023-05-17 12:06] LABS: Abs Immature Grans 0.01 10^3/uL (0.0-0.06); Absolute Basophil Count 0.04 10^3/uL (0.0-0.2); Absolute Eosinophil Count 0.17 10^3/uL (0.0-0.7); Absolute Lymphocyte Count 1.78 10^3/uL (1.2-3.4); Absolute Monocyte Count 0.42 10^3/uL (0.1-0.8); Absolute Neutrophil Count 3.32 10^3/uL (1.2-6.7); Basophils % 0.7; HCT 38.5 % (36.0-46.0); HGB 12.9 g/dL (11.2-15.7); Immature Grans % 0.2; MCH 32.5 pg (27.0-33.0); MCHC 33.5 % (32.0-36.0); MCV 97 fL (80-95); MPV 10.2 fL (8.0-11.0); Monocytes % 7.3; Neutrophils % 57.8; Platelet Count 225 10^3/uL (130-400); RBC 3.97 10^6/uL (3.93-5.22); RDW 12.1 % (11.7-14.6); RDW-SD 42.8 fL; WBC 5.74 10^3/uL (4.4-10.8)
[2023-05-17 12:51] LABS: Anion Gap 7.2 mmol/L (3-11); BUN 24 mg/dL (7-18); CO2 29.8 mmol/L (21.0-32.0); CREATININE 1.1 mg/dL (0.55-1.02); Calcium 9.2 mg/dL (8.5-10.1); Chloride 107 mmol/L (98-107); Ferritin 114 ng/mL (8-252); Glucose 100 mg/dL (74-106); Potassium 4.1 mmol/L (3.5-5.1); Sodium 144 mmol/L (136-145)
== END 2023-05-17 03:04 | disposition home or self-care (01) ==
LOC: LOS 03:03
PROVIDERS: PCP Nurse Practitioner Family; Visit Provider Nurse Practitioner Family
DX: E83.110 Hereditary hemochromatosis (principal)
CPT/HCPCS: 80048; 82728; 85025

== ENCOUNTER 2023-05-29 04:28 | Outpatient (RCR) | payer MEDICARE, BC, SELFPAY | END 2023-06-03 23:59 | disposition home or self-care (01) | LOC: INF 04:28 | PROVIDERS: PCP Nurse Practitioner Family; Visit Provider Nurse Practitioner Family | DX: E83.110 Hereditary hemochromatosis | CPT/HCPCS: 99195 ==

== ENCOUNTER → 2023-06-01 00:05 | Outpatient (CLI) | payer MEDICARE, BC, SELFPAY ==
--- NOTE | 2023-06-01 07:45 | DI.MAMMO_ITS ---
Exam(s) MAMMO SCREENING EXAM: MAMMO SCREENING CLINICAL HISTORY: screening,z12.39 TECHNIQUE: Mammograms were interpreted according to the usual protocol including computer analysis w [employer] CAD system, tomosynthesis and C-view imaging. COMPARISON: 2013 through 2022 FINDINGS: The breasts are composed of mainly fatty density , Breast Density category A. No suspicious masses or suspicious microcalcifications are seen. No skin thickening or abnormal axillary lymph nodes are seen. There has been no significant change from prior exams. IMPRESSION: BI-RADS Category 1, Negative mammogram Yearly screening mammography is recommended. Breast Density - Category A, fatty density. A negative radiographic report should not delay biopsy if a dominant or clinically suspicious mass is present. Up to ten percent of cancers are not identified on mammography. A negative report may reinforce clinical impression. Adenosis and dense breasts may obscure an underlying neoplasm. False positive reports average 6 to 10%. Patient will receive a letter notifying them of these results.
--- NOTE | 2023-06-01 07:45 | DI.DEXA_ITS ---
Exam(s) XR DEXA BONE DENSITY W/WO JADE EXAM: XR DEXA BONE DENSITY W/WO JADE CLINICAL HISTORY: osteopenia,screening for osteoporosis,z78.0 TECHNIQUE: COMPARISON: No exams were available for comparison FINDINGS: Lateral Spine Image: Unremarkable. No compression deformities identified. Left hip: Total T-Score: -1.5. This compares to -1.3 on the prior examination. Total Z-Score: 0.3 T- and Z-scores: Findings are consistent with osteopenia. Lumbar Spine: Total T-Score: -2.1. This compares to -1.8 on the prior examination. Total Z-Score: 0.4 T- and Z-scores: Findings are consistent with osteopenia. IMPRESSION: No evidence of osteoporosis.
== END ==
PROVIDERS: PCP Nurse Practitioner Family; Visit Provider Nurse Practitioner Family
DX: Z12.31 Encounter for screening mammogram for malignant neoplasm of breast (principal); M85.88 Other specified disorders of bone density and structure, other site; Z78.0 Asymptomatic menopausal state
CPT/HCPCS: 77063; 77067; 77080

== ENCOUNTER → 2023-07-06 11:43 | Outpatient (CLI) | payer MEDICARE, BC, SELFPAY ==
--- NOTE | 2023-07-06 | DI.RAD_ITS ---
Exam(s) XR CHEST 2V PA LATERAL EXAM: XR CHEST 2V PA LATERAL CLINICAL HISTORY: COUGH R05.9. TECHNIQUE: 2D digital imaging was performed. COMPARISON: CR XR CHEST 2V PA LATERAL from 05/19/2022 FINDINGS: 2 views: Heart size is normal. The mediastinum is not widened. Lungs are clear. No infiltrates nor pleural effusions. IMPRESSION: No acute pulmonary findings. DATA REPOSITORY: RADIATION DOSE DELIVERED:
== END ==
PROVIDERS: PCP Nurse Practitioner Family; Visit Provider Physician Assistant Medical
DX: R05.9 Cough, unspecified (principal)
CPT/HCPCS: 71046

== ENCOUNTER 2023-07-10 05:46 | Outpatient (CLI) | payer MEDICARE, BC, SELFPAY ==
[2023-07-10 12:12] LABS: Abs Immature Grans 0.07 10^3/uL (0.0-0.06); Absolute Basophil Count 0.02 10^3/uL (0.0-0.2); Absolute Eosinophil Count 0.01 10^3/uL (0.0-0.7); Absolute Monocyte Count 0.44 10^3/uL (0.1-0.8); Absolute Neutrophil Count 10.84 10^3/uL (1.2-6.7); Basophils % 0.2 %; Eosinophils % 0.1 %; HGB 14.4 g/dL (11.2-15.7); Immature Grans % 0.6 %; Lymphocytes % 8.7 %; MCV 100 fL (80-95); MPV 9.2 fL (8.0-11.0); Monocytes % 3.5 %; Neutrophils % 86.9 %; Platelet Count 242 10^3/uL (130-400); RDW 11.8 % (11.7-14.6); RDW-SD 43.4 fL; WBC 12.47 10^3/uL (4.4-10.8)
[2023-07-10 12:14] LABS: Absolute Lymphocyte Count 1.08 10^3/uL (1.2-3.4)
[2023-07-10 13:27] LABS: Ferritin 59 ng/mL (8-252)
== END 2023-07-10 05:47 | disposition home or self-care (01) ==
LOC: LBO 05:46
PROVIDERS: PCP Nurse Practitioner Family; Visit Provider Nurse Practitioner Family
DX: E83.110 Hereditary hemochromatosis (principal)
CPT/HCPCS: 36415; 82728; 85025

== ENCOUNTER 2023-08-15 20:14 | Emergency (ER) | payer MEDICARE, BC, SELFPAY ==
[2023-08-15 20:20] VITALS: BP 196/113; PULSE 77; RESP 15; TEMP 36.1; O2SAT 98
--- NOTE | 2023-08-15 20:30 | DI.RAD_ITS ---
Exam(s) CT PELVIC WO XR HIP LT COMPLETE AP PELVIS EXAM: CT PELVIC WO and XR hip LT complete CLINICAL HISTORY: Left hip pain. TECHNIQUE: Imaging Protocol: Axial computed tomography images with coronal and sagittal reformatted images were created and reviewed. Two images of the left hip were obtained. AP pelvis and lateral left hip images were obtained. COMPARISON: CT CT ABDOMEN PELVIS W from 11/09/2019 CR,XR XR HIP LT COMPLETE AP PELVIS from 08/15/2023 FINDINGS: X-ray of the left hip complete: No acute fracture or dislocation is seen. The soft tissues are unrem arkable. The hip joints are fairly well maintained with minimal joint space narrowing. The sacroili ac joints and symphysis pubis are unremarkable. Bones: The osseous structures and articular surfaces are intact. Bony alignment is satisfactory. N o cellulitic or osteomyelitic changes are identified. The joint spaces are well maintained with only mild joint space narrowing. No lytic or sclerotic lesions are identified. Soft Tissues: There is diverticulosis seen in the sigmoid colon. IMPRESSION: No acute fracture or dislocation. RADIATION DOSE DELIVERED: 513.2mGy.cm Total DLP 513.2mGy.cmTotal DLP DATA REPOSITORY: All CT scans at this facility are submitted to the National Radiology Data Registry (NRDR) Dose Index Registry (DIR) with the [employer] ([employer]). RADIATION OPTIMIZATION: All CT scans at this facility use at least one of these dose optimization te chniques: automated exposure control; mA and/or kV adjustment per patient size (includes targeted exa ms where dose is matched to clinical indication); or iterative reconstruction.
--- NOTE | 2023-08-15 20:31 | W.ED.GENAD ---
Discharge Plan Discharge Details Chief Complaint: Orthopedic Primary Care Provider: Angy Jacob ED Provider: Eyal South Home Meds and New Rx's Prescriptions: No Action sertraline 100 mg tablet 100 mg PO DAILY Qty: 90 3RF Rx Instructions: Take 1 pill daily in addition to the 50mg tablet sertraline 50 mg tablet 50 mg PO DAILY Qty: 90 3RF Rx Instructions: Take 1 pill daily in addition to the 100mg tablet lorazepam 1 mg tablet 1 mg PO DAILY PRN (Reason: anxiety) Qty: 14 0RF omeprazole 20 mg capsule,delayed release(DR/EC) 20 mg PO DAILY Qty: 90 3RF rosuvastatin 10 mg tablet 10 mg PO DAILY Qty: 90 3RF nystatin 100,000 unit/gram powder 1 applic Topical BID PRN (Reason: dermatitis) Qty: 60 4RF losartan 100 mg tablet 100 mg PO DAILY Qty: 90 3RF cholecalciferol (vitamin D3) 50 mcg (2,000 unit) capsule 2,000 unit PO DAILY Qty: 90 3RF ibuprofen [IBU] 600 mg tablet 600 mg PO Q8H PRNQty: 20 0RF HPI General Date/Time Provider Initiated Documentation: 08/15/23 20:30. HPI Narrative: MDM Primary survey intact. Reassuring shock index. Secondary survey patient has pain on the lateral side of her left hip concerning for the possibility of hip fracture. Plain films negative for any acute osseous abnormalities so increased sensitivity with CT cervical spine. No head strike to suggest benefit from head imaging. No neck tenderness to suggest benefit from imaging cervical spine. No erythema to suggest cellulitis. No fluctuance to suggest abscess. No pain out of proportion to suggest necrotizing soft tissue infection. No trauma to chest and no shortness of breath and equal breath sounds without pneumothorax I did not obtain chest x-ray. Soft nontender abdomen and no nausea no vomiting so not concern for intra-abdominal trauma. Will reassess following dry pelvis CT. If this is negative patient will require ambulatory trial. 10:15 PM Met with the patient and explained her negative CT. She will complete ambulatory trial. I signed patient out to Dr. Gunter. If she has excessive pain or is unable to ambulate she may benefit from hospitalization for an MRI to increase sensitivity for hip fracture. Patient has received acetaminophen and a single oral opiate. HPI This is a 77-year-old female arrived to the emergency department via private vehicle in the setting of left-sided hip pain. Patient was reportedly dancing this afternoon and some new western boots at 2:30 PM. She reportedly lifted her right leg onto a chair to display her boots and she inadvertently lost her balance and fell onto her left hip. She did not hit her head. She did not lose consciousness. She is not short of breath she has not been nauseous or vomiting. She attempted to rest at home but had worsening pain and so elected to come to the emergency department. Exam General: Well-appearing in no acute distress speaking in complete sentences. Head: Normocephalic, atraumatic. Eye: Extraocular eye movements intact. No conjunctival injection. No scleral icterus. Ear, nose, mouth, throat: Grossly normal inspection. Normal voice, handling secretions normally. Neck: Trachea midline. Cardiovascular: Well-perfused distal extremities. Regular rate and rhythm Respiratory: Nonlabored respiration. Clear lungs bilaterally Gastrointestinal: Nondistended abdomen. Soft nontender Musculoskeletal: Moving all 4 extremities spontaneously. Nontender bilateral upper extremities. Right lower extremity nontender full range of motion Left lower extremity with lateral proximal thigh tenderness. No ecchymosis. No lacerations. No fluctuance. Patient is able to passive and actively flex and extend her bilateral lower extremities. She is limited left lower extremity range of motion on hip flexion limited secondarily to pain. Skin: Normal for age and race, grossly normal temperature and turgor. No acute rash. Neurologic: Alert and appropriate, no apparent acute deficits. GCS 15. Psychiatric: Mood and manner are appropriate. Grooming and personal hygiene are appropriate. Related Data Home Medications Medication Instructions Recorded Confirmed ibuprofen 600 mg tablet (IBU) 600 mg PO Q8H PRN #20 tabs 12/10/19 07/19/23 cholecalciferol (vitamin D3) 50 2,000 unit PO DAILY #90 caps 05/26/22 07/19/23 mcg (2,000 unit) capsule lorazepam 1 mg tablet 1 mg PO DAILY PRN anxiety #14 tabs 02/28/23 07/19/23 sertraline 100 mg tablet 100 mg PO DAILY #90 tabs 02/28/23 07/19/23 sertraline 50 mg tablet 50 mg PO DAILY #90 tabs 02/28/23 07/19/23 losartan 100 mg tablet 100 mg PO DAILY #90 tabs 05/09/23 07/19/23 nystatin 100,000 unit/gram topical 1 applic topical BID PRN 05/09/23 07/19/23 powder dermatitis #60 grams rosuvastatin 10 mg tablet 10 mg PO DAILY #90 tabs 05/09/23 07/19/23 omeprazole 20 mg capsule,delayed 20 mg PO DAILY #90 caps 07/19/23 07/19/23 release Previous Rx's Medication Instructions Recorded ibuprofen 600 mg tablet (IBU) 600 mg PO Q8H PRN #20 tabs 12/10/19 cholecalciferol (vitamin D3) 50 2,000 unit PO DAILY #90 caps 05/26/22 mcg (2,000 unit) capsule lorazepam 1 mg tablet 1 mg PO DAILY PRN anxiety #14 tabs 02/28/23 sertraline 100 mg tablet 100 mg PO DAILY #90 tabs 02/28/23 sertraline 50 mg tablet 50 mg PO DAILY #90 tabs 02/28/23 losartan 100 mg tablet 100 mg PO DAILY #90 tabs 05/09/23 nystatin 100,000 unit/gram topical 1 applic topical BID PRN 05/09/23 powder dermatitis #60 grams rosuvastatin 10 mg tablet 10 mg PO DAILY #90 tabs 05/09/23 omeprazole 20 mg capsule,delayed 20 mg PO DAILY #90 caps 07/19/23 release Allergies Allergy/AdvReac Type Severity Reaction Status Date / Time Sulfa (Sulfonamide Allergy Intermediate HIVES Verified 06/04/23 08:17 Antibiotics) aluminum Allergy Mild Skin Rash Verified 06/04/23 08:17 lisinopril AdvReac Mild Cough Verified 06/04/23 08:17 ZINC GLUCONATE Allergy Mild ITCHING Uncoded 06/04/23 08:17 General Stated Complaint: Orthopedic KAMI: 3 Course Vital Signs Vital signs: Vital Signs Temperature 36.1 C L 08/15/23 20:20 Pulse 77 08/15/23 20:20 Respiratory Rate 15 08/15/23 20:20 Blood Pressure 196/113 H 08/15/23 20:20 Pulse Oximetry 98 08/15/23 20:20 Temperature 36.1 C L 08/15/23 20:20 Temperature Source Tympanic 08/15/23 20:20 Pulse 77 08/15/23 20:20 Respiratory Rate 15 08/15/23 20:20 Respiratory Effort Normal 08/15/23 20:24 Blood Pressure 196/113 H 08/15/23 20:20 Blood Pressure Position Sitting 08/15/23 20:20 Pulse Oximetry 98 08/15/23 20:20 Oxygen Delivery Method Room Air 08/15/23 20:20 Oxygen Flow Rate 0 08/15/23 20:20 Pain Level 7 08/15/23 20:20 Medical Decision Making Quality:SDOH Health Related Social Needs: No Data to Display PFSH All Active Problems (Updated 07/19/23 @ 08:42 by Angy Jacob NP) Gastroesophageal reflux disease (Chronic) History of endometrial cancer (Chronic ~2019) FIGO grade 1 endometrial adenocarcinoma s/p hysterectomy. 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 Nonalcoholic fatty liver disease (Chronic) Hyperlipidemia (Chronic) Major depressive disorder, recurrent (Chronic) Generalized anxiety disorder (Chronic) Insomnia (Acute) Osteopenia (Chronic) Dexa 10/23 Obesity (BMI 30-39.9) (Chronic) Medical History (Updated 07/19/23 @ 08:42 by Angy Jacob NP) Endometrial adenocarcinoma (~2019) FIGO grade 1 endometrial adenocarcinoma s/p hysterectomy Prediabetes Bulimia nervosa Surgical History Normal colonoscopy (~11/2020) S/P total hysterectomy (01/15/20) For endometrial CA Status post hysteroscopy (12/10/19) With D&C S/P colonoscopy (03/10/08) S/P tonsillectomy and adenoidectomy History of bilateral tubal ligation History of bladder surgery S/P cataract surgery (10/29/17) OD 10/22/17, OS 11/12/17 Family History Mother No problems noted. Father , 72 Hyperlipidemia Heart disease Hypertension Prostate cancer Myocardial infarction Sister Hyperlipidemia Depression Son Depression Daughter Mental disorder Substance abuse Depression Daughter Maria Luz-Danlos disease Depression Maternal Grandfather Myocardial infarction Heart disease Maternal Grandmother No problems noted. Paternal Grandfather Heart disease Myocardial infarction Paternal Grandmother Hypertension Hyperlipidemia Heart disease Type 2 diabetes mellitus Myocardial infarction Social History (Updated 05/18/23 @ 19:01 by Lilian Cheek) Smoking/Tobacco Use Status: Never Second Hand Exposure: Yes Smoking risk assessment performed?: Yes Alcohol Intake: current Alcohol Intake frequency: a few times a month Alcohol type: hard liquor Drug use: Never Substance use type: does not use Caregiver/Support person: No Household members: none Housing: apartment Communication Needs: None Do you need help understanding health information?: Often Pets and animals: Yes Pets and animals: cat(s) Sexually active: No Do you think of yourself as: straight/heterosexual Current gender identity: female What is your relationship status?: How often do you talk on the phone with friends or family?: three or more times per week How often do you get together with friends or relatives?: three or more times per week How often do you attend tenriism or yarsani services?: 4 or more times per year Do you belong to any clubs or organized social groups?: yes Panel score (0-1 are the most socially isolated patients): 3 What type of physical activity do you participate in: none Duration: 15-30 minutes/day Frequency: does not exercise Elly/Voodoo: None Special elly needs: No Seatbelt use: always Drive intox or ride w/intox driver lifter of sanitation truck: No Do you feel safe at home: Yes Do you feel safe in your relationship?: Yes Female Reproductive History Menstrual Menopause type: natural History History 3 Para 3 Hx # Term Pregnancies Multiple births Hx # Pregnancies Ectopic pregnancies AB induced Hx Number of Living Children 3 AB spontaneous
[2023-08-15] MEDS: Acetaminophen 500 MG TAB 1000 MG PO (20:45)
[2023-08-15] MEDS: oxyCODONE 5 MG TAB PO (21:36)
--- NOTE | 2023-08-15 21:47 | DI.VRAD_ITS ---
PROCEDURE INFORMATION: Exam: XR Left Hip Exam date and time: 08/15/2023 9:03 PM Age: 77 years old Clinical indication: Hip pain; Left hip; Additional info: Left hip pain TECHNIQUE: Imaging protocol: Radiologic exam of the left hip. Views: 2 or 3 views hip with pelvis when performed. COMPARISON: CT ABDOMEN PELVIS W 11/09/2019 8:14 PM FINDINGS: Bones/joints: Unremarkable. No acute fracture. Soft tissues: Unremarkable. IMPRESSION: No acute findings. Dictated and Authenticated by: Jarad Rutledge MD. Ordering:MOUSTAPHA Birch MD
--- NOTE | 2023-08-15 22:08 | DI.VRAD_ITS ---
PROCEDURE INFORMATION: Exam: CT Pelvis Without Contrast; Skeletal Exam date and time: 08/15/2023 9:46 PM Age: 77 years old Clinical indication: Other: Hip lt pain; Additional info: Left hip pain TECHNIQUE: Imaging protocol: Computed tomography of the pelvis without contrast. Exam focused on the skeleton. COMPARISON: CR XR HIP LT COMPLETE AP PELVIS 08/15/2023 9:03 PM FINDINGS: Bones/joints: Unremarkable. No acute fracture. No dislocation. Soft tissues: Unremarkable. IMPRESSION: No acute findings. Dictated and Authenticated by: Jarad Rutledge MD. Ordering:MOUSTAPHA Birch MD
--- NOTE | 2023-08-15 22:21 | W.EDPROG ---
Date of service: 08/15/23 Time of Service: 22:21 Medical Decision Making This patient was signed out to me. Please see previous notes for H&P and initial eval. In brief, 77yo F presenting with hip pain after a fall; XR and CT negative. Signed out pending ambulatory trial. Ambulated well independently. Pain adequately controlled; will add lidocaine patch at pt request. Well appearing on reassessment; she is requesting discharge home which is reasonable. Discharged home; discharge instructions and return precautions were reviewed with patient who verbalized understanding. All questions were answered and she is in full agreement with the plan. Quality:[facility] Health Related Social Needs: No Data to Display Sign Out Sign Out Data: Sign Out Comment: Please follow-up ambulatory trial in the setting of left hip pain with negative x-rays and CT scan. If patient is having persistent pain and was unable to benefit she may benefit from hospitalization to increase sensitivity for hip fracture with MRI. Last updated by Eyal South MD at 08/15/23 22:16 Discharge Plan Disposition Patient Disposition: Home Condition: Good Discharge Details Clinical Impression: Acute hip pain, Fall Primary Care Provider: Angy Jacob ED Provider: Siomara Gunter Home Meds and New Rx's Prescriptions: Continued sertraline 100 mg tablet 100 mg PO DAILY Qty: 90 3RF Rx Instructions: Take 1 pill daily in addition to the 50mg tablet sertraline 50 mg tablet 50 mg PO DAILY Qty: 90 3RF Rx Instructions: Take 1 pill daily in addition to the 100mg tablet omeprazole 20 mg capsule,delayed release(DR/EC) 20 mg PO DAILY Qty: 90 3RF rosuvastatin 10 mg tablet 10 mg PO DAILY Qty: 90 3RF nystatin 100,000 unit/gram powder 1 applic Topical BID PRN (Reason: dermatitis) Qty: 60 4RF losartan 100 mg tablet 100 mg PO DAILY Qty: 90 3RF cholecalciferol (vitamin D3) 50 mcg (2,000 unit) capsule 2,000 unit PO DAILY Qty: 90 3RF ibuprofen [IBU] 600 mg tablet 600 mg PO Q8H PRNQty: 20 0RF Discharge Instructions Instructions: Hip Pain ED, Preventing Falls ED Additional Instructions: Tylenol and lidocaine patch over the counter for pain; follow the directions on the package. Return to the emergency department for new or worsening symptoms including new/different/worse pain, inability to walk steadily, or if you have any other concerns. Referrals: Angy Jacob NP [Primary Care Provider] -
[2023-08-15] MEDS: Lidocaine 5% Patch 1 PATCH TP (22:32)
== END 2023-08-15 22:47 | disposition home or self-care (01) ==
PROVIDERS: Emergency Provider Student in an Organized Health Care Education/Training Program; PCP Nurse Practitioner Family
DX: M25.552 Pain in left hip (principal); W19.XXXA Unspecified fall, initial encounter; Y93.41 Activity, dancing; I10 Essential (primary) hypertension; E66.9 Obesity, unspecified; Z68.30 Body mass index [BMI] 30.0-30.9, adult; E78.5 Hyperlipidemia, unspecified; Z79.899 Other long term (current) drug therapy
CPT/HCPCS: 00123; 99284; 72192; 73502; 99283

== ENCOUNTER 2024-05-12 04:18 | Outpatient (CLI) | payer MEDICARE, BC, SELFPAY ==
[2024-05-12 10:49] LABS: Abs Immature Grans 0.02 10^3/uL (0.0-0.06); Absolute Basophil Count 0.03 10^3/uL (0.0-0.2); Absolute Eosinophil Count 0.22 10^3/uL (0.0-0.7); Absolute Lymphocyte Count 1.37 10^3/uL (1.2-3.4); Absolute Monocyte Count 0.41 10^3/uL (0.1-0.8); Absolute Neutrophil Count 4.39 10^3/uL (1.2-6.7); Basophils % 0.5 %; Eosinophils % 3.4 %; HCT 47.2 % (36.0-46.0); HGB 15.4 g/dL (11.2-15.7); Immature Grans % 0.3 %; Lymphocytes % 21.3 %; MCH 31.4 pg (27.0-33.0); MCHC 32.6 % (32.0-36.0); MCV 96 fL (80-95); MPV 9.8 fL (8.0-11.0); Monocytes % 6.4 %; Neutrophils % 68.1 %; Platelet Count 247 10^3/uL (130-400); RDW 12.4 % (11.7-14.6); WBC 6.44 10^3/uL (4.4-10.8)
[2024-05-12 11:12] LABS: ALT 19 U/L (14-59); AST 18 U/L (15-37); Albumin 3.8 g/dL (3.4-5.0); Alkaline Phosphatase 129 U/L (46-116); Anion Gap 6.4 mmol/L (3-11); BUN 27 mg/dL (7-18); Bilirubin, Total 0.7 mg/dL (0.2-1.0); CO2 28.6 mmol/L (21.0-32.0); CREATININE 1.1 mg/dL (0.55-1.02); Calcium 9.7 mg/dL (8.5-10.1); Calculated LDL 64 mg/dL (<100); Chloride 109 mmol/L (98-107); Cholesterol 133 mg/dL (<200); Estimated GFR 52.08 (mL/min/1.73m2); Ferritin 97 ng/mL (8-252); Glucose 103 mg/dL (74-106); HDL Cholesterol 53 mg/dL (>or=50); Potassium 4.2 mmol/L (3.5-5.1); Sodium 144 mmol/L (136-145); TSH (W/Ref FT4) 1.21 uIU/mL (0.36-3.74); Total Protein 7.8 g/dL (6.4-8.2); Triglyceride 83 mg/dL (<150)
[2024-05-12 22:31] LABS: Lab Add On Test DONE
[2024-05-12 22:42] LABS: GGT 25 U/L (5-55)
[2024-05-13 12:15] LABS: HBs Antibody, Quant <3.1 mIU/mL (See Note); Hep B Surface Ab Negative (See Note); Hepatitis B Core Antibody Negative (Negative); Hepatitis B Surface Antigen Negative (Negative)
== END 2024-05-12 04:19 | disposition home or self-care (01) ==
LOC: LOS 04:18
PROVIDERS: PCP Nurse Practitioner Family; Visit Provider Nurse Practitioner Family
DX: E83.110 Hereditary hemochromatosis (principal); I10 Essential (primary) hypertension; E66.9 Obesity, unspecified; Z11.59 Encounter for screening for other viral diseases; R74.8 Abnormal levels of other serum enzymes
CPT/HCPCS: 36415; 80053; 80061; 86704; 86706; 87340; 82728; 82977; 84443; 85025

== ENCOUNTER 2024-05-14 10:40 | Outpatient (REF) | payer MEDICARE, BC, SELFPAY ==
[2024-05-14 14:06] LABS: Bilirubin Small (Negative); Blood Negative (Negative); Clarity Sl Cloudy (Clear); Glucose 100 mg/dL (Negative); Ketones Trace mg/dL (Negative); Leukocyte Esterase Trace (Negative); Nitrite Negative (Negative); Specific Gravity >= 1.030 (1.005-1.025); Urobilinogen 0.2 mg/dL (Up to 0.2); pH 5.5 (5-8)
[2024-05-14 14:12] LABS: Bacteria Many HPF (Negative); C & S Indicated? No; Casts Negative LPF (Negative); Crystals Mod Calcium Oxalate HPF (Negative); Epithelial Cells Rare HPF (Negative); Mucus Negative (Negative); RBC Negative HPF (0-2)
[2024-05-14 14:30] LABS: COMMENT (LAB VIEW ONLY) 381.89 mg/dL; PROTEIN 20.5 mg/dL; Prot/Crea Ur Ratio 0.05
[2024-05-14 14:34] LABS: COMMENT (LAB VIEW ONLY) 382.62 mg/dL; Microalb ug/mg Crea 5.5 ug/mg Cr
== END 2024-05-14 10:41 | disposition home or self-care (01) ==
LOC: LBN 10:40
PROVIDERS: PCP Nurse Practitioner Family; Visit Provider Nurse Practitioner Family
DX: N18.30 Chronic kidney disease, stage 3 unspecified (principal); E83.110 Hereditary hemochromatosis; Z23 Encounter for immunization; Z85.42 Personal history of malignant neoplasm of other parts of uterus; F41.1 Generalized anxiety disorder; F33.9 Major depressive disorder, recurrent, unspecified; Z71.89 Other specified counseling
CPT/HCPCS: 81003; 81015; 82043; 82565; 82570; 84156

== ENCOUNTER 2024-09-26 00:53 | Outpatient (CLI) | payer MEDICARE, BC, SELFPAY ==
[2024-09-26 12:54] LABS: Ferritin 46 ng/mL (8-252)
== END 2024-09-26 00:54 | disposition home or self-care (01) ==
LOC: LOS 00:53
PROVIDERS: PCP Nurse Practitioner Family; Visit Provider Nurse Practitioner Family
DX: E83.110 Hereditary hemochromatosis (principal)
CPT/HCPCS: 36415; 82728

== ENCOUNTER 2025-01-07 08:02 | Outpatient (CLI) | payer MEDICARE, BC, SELFPAY ==
[2025-01-07 12:45] LABS: Abs Immature Grans 0.02 10^3/uL (0.0-0.06); HCT 45.7 % (36.0-46.0); HGB 14.9 g/dL (11.2-15.7); Immature Grans % 0.3 %; MCH 32.0 pg (27.0-33.0); MCHC 32.6 % (32.0-36.0); MCV 98 fL (80-95); MPV 9.6 fL (8.0-11.0); Platelet Count 228 10^3/uL (130-400); RBC 4.66 10^6/uL (3.93-5.22); RDW 12.2 % (11.7-14.6); RDW-SD 44.3 fL; WBC 7.57 10^3/uL (4.4-10.8)
[2025-01-07 13:26] LABS: ALT 29 U/L (14-59); AST 28 U/L (15-37); Albumin 3.8 g/dL (3.4-5.0); Alkaline Phosphatase 160 U/L (46-116); Anion Gap 6.0 mmol/L (3-11); BUN 29 mg/dL (7-18); Bilirubin, Total 0.4 mg/dL (0.2-1.0); CO2 31.0 mmol/L (21.0-32.0); Calcium 9.2 mg/dL (8.5-10.1); Chloride 106 mmol/L (98-107); Ferritin 61 ng/mL (8-252); Glucose 114 mg/dL (74-106); Potassium 4.8 mmol/L (3.5-5.1); Sodium 143 mmol/L (136-145); TSH (W/Ref FT4) 1.99 uIU/mL (0.36-3.74); Total Protein 7.5 g/dL (6.4-8.2); Vitamin B12 411 pg/mL (193-986); Vitamin D 25 Total 47 ng/mL (30-100)
== END 2025-01-07 08:03 | disposition home or self-care (01) ==
LOC: LOS 08:03
PROVIDERS: PCP Nurse Practitioner Family; Visit Provider Nurse Practitioner Family
DX: R68.89 Other general symptoms and signs (principal); E83.110 Hereditary hemochromatosis; R53.83 Other fatigue; M85.89 Other specified disorders of bone density and structure, multiple sites
CPT/HCPCS: 36415; 80053; 82306; 82607; 82728; 84443; 85025